=== PATIENT | male | born 1990 | race Caucasian/White ===

== ENCOUNTER 2018-10-20 08:51 | Inpatient (IN) | payer OTHER ==
[2018-10-20] VITALS (10 sets, daily range): BP systolic 110–130; BP diastolic 71–92; PULSE 68–98; RESP 13–21; Ht 180.3 cm; Wt 85.0 kg
[~2018-10-20] VITALS: Ht 180.3 cm; Wt 85.0 kg
[2018-10-20] MEDS ORDERED: SODIUM CHLORIDE 0.9% 1L BAG IV* STA (10:00)
[2018-10-20] MEDS ORDERED: IBUPROFEN 600 MG TAB PO ONE (11:00)
[2018-10-20] MEDS ORDERED: SOD CHLORIDE 0.9% 100 ML ONE (11:55)
[2018-10-20] MEDS ORDERED: IOHEXOL 300MG/ML 150 ML BTL ONE (11:55)
[2018-10-20] MEDS ORDERED: PIPER-TAZO 3.375 GM IV (PMX) 100 ML IVPB STA (12:51)
[2018-10-20] MEDS ORDERED: VANCOMYCIN 1 GM (PMX) 250 ML IVPB STA (12:51)
[2018-10-20] MEDS ORDERED: METH10SO PO (13:11)
--- NOTE | 2018-10-20 13:41 | ERD ---
ER Documentation Chief Complaint Chief Complaint ABSCESS ON LT SHOULDER X2 WEEKS HPI This is a 28-year-old male who presents for evaluation of an abscess to left shoulder. Patient is a former IV drug user, who is currently on methadone. He presented with a large area of swelling, which was concerning for an abscess. He denies fever. He denies any joint pain. ROS All systems reviewed and are negative except as per history of present illness. Medications Home Meds Reported Medications Methadone Hcl* (Methadone Hcl*) 10 Mg/5 Ml Solution, 60 MG PO DAILY, ML 10/20/18 Allergies Allergies: Coded Allergies: No Known Allergy (Unverified , 10/20/18) PMhx/Soc Medical and Surgical Hx: pt denies Medical Hx, pt denies Surgical Hx Hx Alcohol Use: No Hx Substance Use: Yes (I/V DRUG USE ) Hx Tobacco Use: No Smoking Status: Never smoker Physical Exam Vitals Vital Signs Date Temp Pulse Resp B/P (MAP) Pulse Ox O2 O2 Flow FiO2 Time Delivery Rate 10/20/18 77 16 101/76 99 Room Air 13:12 (84) 10/20/18 88 16 138/87 99 Room Air 11:01 (104) 10/20/18 98.4 103 16 123/90 100 09:01 (101) Physical Exam Const: No acute distress Head: Atraumatic Eyes: Normal Conjunctiva ENT: Normal External Ears, Nose and Mouth. Neck: Full range of motion. No meningismus. Resp: Clear to auscultation bilaterally Cardio: Regular rate and rhythm, no murmurs Abd: Soft, non tender, non distended. Normal bowel sounds Skin: No petechiae or rashes Back: No midline or flank tenderness Ext: There is a large area of swelling and induration noted over the left shoulder. There is small amount of purulence noted, distally pulses are intact, cap refill is less than 2 seconds Neur: Awake and alert Psych: Normal Mood and Affect Result Diagram: 10/20/18 1040 10/20/18 1040 Results 24 hrs Laboratory Tests Test 10/20/18 10:37 10/20/18 10:40 10/20/18 11:41 10/20/18 12:28 POC Venous Lactate 1.3 mmol/L White Blood Count 19.3 10^3/ul Red Blood Count 4.26 10^6/ul Hemoglobin 12.2 g/dl Hematocrit 37.4 % Mean Corpuscular 87.8 fl Volume Mean Corpuscular 28.6 pg Hemoglobin Mean Corpuscular 32.6 g/dl Hemoglobin Concent Red Cell 12.7 % Distribution Width Platelet Count 429 10^3/UL Mean Platelet 9.3 fl Volume Immature 0.700 % Granulocytes % Neutrophils % 79.0 % Lymphocytes % 9.4 % Monocytes % 9.8 % Eosinophils % 0.7 % Basophils % 0.4 % Nucleated Red Blood 0.0 /100WBC Cells % Immature 0.130 10^3/ul Granulocytes # Neutrophils # 15.3 10^3/ul Lymphocytes # 1.8 10^3/ul Monocytes # 1.9 10^3/ul Eosinophils # 0.1 10^3/ul Basophils # 0.1 10^3/ul Nucleated Red Blood 0.0 10^3/ul Cells # Prothrombin Time 14.3 Sec Prothrombin Time 1.1 Ratio INR International 1.10 Normalized Ratio Activated 31.9 Sec Partial Thromboplas t Time Sodium Level 136 mmol/L Potassium Level 3.5 mmol/L Chloride Level 100 mmol/L Carbon Dioxide 26 mmol/L Level Anion Gap 10 Blood Urea Nitrogen 15 mg/dl Creatinine 0.89 mg/dl Est Glomerular > 60 mL/min Filtrat Rate mL/min Glucose Level 74 mg/dl Calcium Level 8.9 mg/dl Total Bilirubin 0.3 mg/dl Direct Bilirubin 0.00 mg/dl Indirect Bilirubin 0.3 mg/dl Aspartate Amino 26 IU/L Transf (AST/SGOT) Alanine 22 IU/L Aminotransferase (A LT/SGPT) Alkaline 108 IU/L Phosphatase Troponin I < 0.012 ng/ml C-Reactive Protein 22.0 mg/dl Total Protein 6.9 g/dl Albumin 3.5 g/dl Globulin 3.40 g/dl Albumin/Globulin 1.02 Ratio Procalcitonin 0.14 ng/mL Urine Color MAYE Urine Clarity CLEAR Urine pH 5.0 Urine Specific 1.029 [place] Urine Ketones NEGATIVE mg/dL Urine Nitrite NEGATIVE mg/dL Urine Bilirubin 1+ mg/dL Urine Urobilinogen 2+ mg/dL Urine Leukocyte NEGATIVE Justyna/ul Esterase Urine Microscopic 0 /HPF RBC Urine Microscopic 4 /HPF WBC Urine Mucus FEW /HPF Urine Hemoglobin NEGATIVE mg/dL Urine Glucose NEGATIVE mg/dL Urine Total Protein 1+ mg/dl Lactic Acid Level 0.8 mmol/L Current Medications Medications Dose Sig/Era Start Time Status Last (Trade) Ordered Route PRN Stop Time Admin Dose Reason Admin Sodium 2,370 ml BOLUS OVER 2 10/20/18 DC 10/20/18 Chloride HOURS STAT 10:00 10/20/18 10:39 (NS) IV* 10:05 Ibuprofen 600 mg ONCE ONCE 10/20/18 DC 10/20/18 (Motrin) PO 11:00 10/20/18 10:56 11:01 Iohexol 150 ml STK-MED 10/20/18 DC (Omnipaque ONCE .ROUTE 11:55 10/20/18 300mg/ ml) 11:56 Sodium 100 ml @ ud STK-MED 10/20/18 DC Chloride ONCE .ROUTE 11:55 10/20/18 11:56 IV Flush 10 ml STK-MED 10/20/18 DC (NS 10 ml) ONCE .ROUTE 11:55 10/20/18 11:56 Vancomycin 250 ml @ ONCE STAT 10/20/18 HCl 125 mls/hr IVPB 12:51 10/20/18 14:50 Piperacillin 100 ml @ ONCE STAT 10/20/18 DC 10/20/18 Sod/ 200 mls/hr IVPB 12:51 10/20/18 12:56 Tazobactam 13:20 Sod Procedures/MDM This is a 28-year-old male who presents for evaluation of an abscess to the shoulder. Patient CT confirmed the depth of the abscess, given its size, the patient will be admitted for likely operative intervention, as well as IV antibiotics with vancomycin and Zosyn. Patient had no evidence of severe sepsis or septic shock. Accepting Care Team: Current data and ongoing care discussed. Primary: Paddy Consulting: Tiff Outstanding Data: none Departure Diagnosis: Primary Impression: Abscess Condition: Stable CHANTAL RAMSEY MD Oct 20, 2018 13:41
--- NOTE | 2018-10-20 13:56 | HP ---
Date/Time of Note Date/Time of Note DATE: 10/20/18 TIME: 13:51 Assessment/Plan VTE Prophylaxis SCD applied (from Nsg): Yes Pharmacological prophylaxis: NA/contraindicated Pharm contraindication: surgical contra Lines/Catheters IV Catheter Type (from Nrs): Saline Lock Assessment/Plan Hospital Course 1. Sepsis secondary to left arm abscess Patient has not used IV drugs for several months now and is on methadone, this has been verified by mother who is bedside Surgery take patient to the OR today for I&D Possible antibiotic with vancomycin and Zosyn ID consultation obtained, follow-up on cultures Follow-up on HIV and hepatitis panel 2. History of heroin abuse Patient has been clean for the past several months and is on methadone Continue home methadone 3. Normocytic anemia secondary to chronic disease Monitor Prophylaxis: SCDs Result Diagram: 10/20/18 1040 10/20/18 1040 Results 24hrs Laboratory Tests Test 10/20/18 10:37 10/20/18 10:40 10/20/18 11:41 10/20/18 12:28 POC Venous Lactate 1.3 White Blood Count 19.3 H Red Blood Count 4.26 L Hemoglobin 12.2 L Hematocrit 37.4 L Mean Corpuscular Volume 87.8 Mean Corpuscular 28.6 L Hemoglobin Mean Corpuscular 32.6 Hemoglobin Concent Red Cell Distribution 12.7 Width Platelet Count 429 H Mean Platelet Volume 9.3 Immature Granulocytes % 0.700 H Neutrophils % 79.0 H Lymphocytes % 9.4 L Monocytes % 9.8 Eosinophils % 0.7 Basophils % 0.4 Nucleated Red Blood 0.0 Cells % Immature Granulocytes # 0.130 H Neutrophils # 15.3 H Lymphocytes # 1.8 Monocytes # 1.9 H Eosinophils # 0.1 Basophils # 0.1 Nucleated Red Blood 0.0 Cells # Prothrombin Time 14.3 Prothrombin Time Ratio 1.1 INR International 1.10 Normalized Ratio Activated 31.9 Partial Thromboplast Time Sodium Level 136 Potassium Level 3.5 Chloride Level 100 Carbon Dioxide Level 26 Anion Gap 10 Blood Urea Nitrogen 15 Creatinine 0.89 Est Glomerular Filtrat > 60 Rate mL/min Glucose Level 74 Calcium Level 8.9 Total Bilirubin 0.3 Direct Bilirubin 0.00 Indirect Bilirubin 0.3 Aspartate Amino 26 Transf (AST/SGOT) Alanine 22 Aminotransferase (ALT/SG PT) Alkaline Phosphatase 108 Troponin I < 0.012 C-Reactive Protein 22.0 H Total Protein 6.9 Albumin 3.5 Globulin 3.40 H Albumin/Globulin Ratio 1.02 Procalcitonin 0.14 H Urine Color MAYE Urine Clarity CLEAR Urine pH 5.0 Urine Specific [place] 1.029 Urine Ketones NEGATIVE Urine Nitrite NEGATIVE Urine Bilirubin 1+ H Urine Urobilinogen 2+ H Urine Leukocyte Esterase NEGATIVE Urine Microscopic RBC 0 Urine Microscopic WBC 4 Urine Mucus FEW A Urine Hemoglobin NEGATIVE Urine Glucose NEGATIVE Urine Total Protein 1+ H Lactic Acid Level 0.8 HPI/ROS Admit Date/Time Admit Date/Time October 20, 2018 Hx of Present Illness Patient is a 28-year-old male with a history of IV drug use, patient has been clean for several months now and is on methadone which is been verified by his mother who is at bedside. Patient does have a history of abscess secondary to IV drug use but spontaneously developed an abscess over past several days on the left arm. In the ER CT of the arm showed a left deltoid abscess extending 13 cm in craniocaudal dimension. Patient to be taken to the OR with surgery today. Patient has no other complaints at this time. ROS Constitutional: no complaints, improved Eyes: no complaints ENT: no complaints Respiratory: no complaints Cardiovascular: no complaints Gastrointestinal: no complaints Genitourinary: no complaints Musculoskeletal: no complaints Skin: skin lesions Neurologic: no complaints Endocrine: no complaints Lymphatic: no complaints Psychological: no complaints, nl mood/affect Immunologic: no complaints PMH/Family/Social Past Medical History History of abscess secondary to IV drug use Medications Current Medications Vancomycin HCl 250 ml @ 125 mls/hr ONCE STAT IVPB Last administered on 10/20/18at 13:51; Admin Dose 125 MLS/HR; Start 10/20/18 at 12:51; Stop 10/20/18 at 14:50 Sodium Chloride 1,000 ml @ 100 mls/hr Q10H IV ; Start 10/20/18 at 13:44; Status UNV IV Flush (NS 3 ml) 3 ml PER PROTOCOL IV ; Start 10/20/18 at 14:00; Status UNV Ondansetron HCl (Zofran Inj) 4 mg Q6H PRN IV NAUSEA/VOMITING; Start 10/20/18 at 14:00; Status UNV Acetaminophen (Tylenol Tab) 650 mg Q6H PRN PO .PAIN 1-3 OR TEMP; Start 10/20/18 at 14:00; Status UNV Acetaminophen/ Hydrocodone Bitart ([place] (5/325)) 1 tab Q6H PRN PO .MOD PAIN 4- 6; Start 10/20/18 at 14:00; Status UNV Morphine Sulfate (morphine) 2 mg Q4H PRN IV .SEVERE PAIN 7-10; Start 10/20/18 at 14:00; Status UNV Docusate Sodium (Colace) 100 mg Q12H PRN PO .CONSTIPATION; Start 10/20/18 at 14:00; Status UNV Zolpidem Tartrate (Ambien) 5 mg QHS PRN PO .INSOMNIA; Start 10/20/18 at 14:00; Status UNV Vancomycin HCl (Vanco Iv Per Pharmacy) VANCOMYCIN PER PHARMACY PER PROTOCOL XX ; Start 10/20/18 at 14:00; Status UNV Piperacillin Sod/ Tazobactam Sod 100 ml @ 200 mls/hr Q6 IVPB ; Start 10/20/18 at 18:00; Status UNV Miscellaneous Information 60 mg DAILY PO ; Start 10/21/18 at 09:00; Status UNV Coded Allergies: No Known Allergy (Unverified , 10/20/18) Family History Significant Family History: no pertinent family hx Social History Alcohol Use: rarely Smoking Status: Never smoker Drug Use: heroin (History of heroin) Exam/Review of Systems Vital Signs Vitals Vital Signs Date Temp Pulse Resp B/P (MAP) Pulse Ox O2 O2 Flow FiO2 Time Delivery Rate 10/20/18 77 16 101/76 99 Room Air 13:12 (84) 10/20/18 98.4 09:01 Exam Constitutional: alert, oriented Respiratory: clear to auscultation Cardiovascular: regular rate and rhythm Gastrointestinal: soft; No distended Musculoskeletal: nl extremities to inspection Skin: other (Left arm abscess) JOSEPH ALCANTARA Oct 20, 2018 13:56
[2018-10-20] MEDS ORDERED: DOCUSATE SODIUM 100 MG CAP PO PRN (14:00)
[2018-10-20] MEDS ORDERED: ZOLPIDEM 5 MG TAB PO PRN (14:00)
[2018-10-20] MEDS ORDERED: VANCOMYCIN IV PER PHARMACY XX SCH (14:00)
[2018-10-20] MEDS ORDERED: NACL 0.9% 3 ML SYG IV SCH (14:00)
[2018-10-20] MEDS ORDERED: HYDROCODONE/APAP (5/325) TAB PO PRN (14:00)
[2018-10-20] MEDS ORDERED: morphine 2 MG INJ IV PRN (14:00)
[2018-10-20] MEDS ORDERED: ACETAMINOPHEN 325 MG TAB PO PRN ×2 (14:00→17:30)
[2018-10-20] MEDS ORDERED: ONDANSETRON 4 MG INJ IV PRN ×3 (14:00→17:30)
--- NOTE | 2018-10-20 15:01 | PREAC ---
Date/Time of Note Date/Time of Note DATE: 10/20/18 TIME: 14:58 Anesthesia Eval and Record Evaluation Time Pre-Procedure Interview DATE: 10/20/18 TIME: 14:58 Age 28 Sex male NPO: 8 hrs Preoperative diagnosis lt. deltoid abscess, h/o ivdu Planned procedure i&d of lt. shoulder abscess Past Medical History Past Medical History: Includes Infection(s): Other (hiv/hep b/c being ruled out) Recreational drugs: Heroin, Other (ex. heroin, methadone maintenance) Surgery & Anesthesia Issues No known issue Meds Anticoagulation: No Beta Yulisa within 24 hr: No Reason Beta Yulisa not given: Pt. not on B-Yulisa Reported Medications Methadone Hcl* (Methadone Hcl*) 10 Mg/5 Ml Solution, 60 MG PO DAILY, ML 10/20/18 Current Medications Sodium Chloride 1,000 ml @ 100 mls/hr Q10H IV ; Start 10/20/18 at 13:44 IV Flush (NS 3 ml) 3 ml PER PROTOCOL IV ; Start 10/20/18 at 14:00 Ondansetron HCl (Zofran Inj) 4 mg Q6H PRN IV NAUSEA/VOMITING; Start 10/20/18 at 14:00 Acetaminophen (Tylenol Tab) 650 mg Q6H PRN PO .PAIN 1-3 OR TEMP; Start 10/20/18 at 14:00 Acetaminophen/ Hydrocodone Bitart ([place] (5/325)) 1 tab Q6H PRN PO .MOD PAIN 4- 6; Start 10/20/18 at 14:00 Morphine Sulfate (morphine) 2 mg Q4H PRN IV .SEVERE PAIN 7-10; Start 10/20/18 at 14:00 Docusate Sodium (Colace) 100 mg Q12H PRN PO .CONSTIPATION; Start 10/20/18 at 14:00 Zolpidem Tartrate (Ambien) 5 mg QHS PRN PO .INSOMNIA; Start 10/20/18 at 14:00 Vancomycin HCl (Vanco Iv Per Pharmacy) VANCOMYCIN PER PHARMACY PER PROTOCOL XX ; Start 10/20/18 at 14:00 Piperacillin Sod/ Tazobactam Sod 100 ml @ 200 mls/hr Q6 IVPB ; Start 10/20/18 at 18:00 Miscellaneous Information 60 mg DAILY PO ; Start 10/21/18 at 09:00; Status UNV Vancomycin/Sodium Chloride 250 ml @ 125 mls/hr Q8H IVPB ; Start 10/20/18 at 17:30 Meds reviewed: Yes Allergies Coded Allergies: No Known Allergy (Unverified , 10/20/18) Allergies Reviewed: Yes Labs/Studies Labs Reviewed: Reviewed by anesthesiologist Result Diagram: 10/20/18 1040 10/20/18 1040 Laboratory Tests 10/20/18 10:40 test: N/A Studies: ECG (nsr), CXR (no i/e) Pre-procedure Exam Last vitals Vital Signs Date Temp Pulse Resp B/P (MAP) Pulse Ox O2 O2 Flow FiO2 Time Delivery Rate 10/20/18 98.6 78 16 121/83 98 Room Air 14:31 (96) Airway: Adequate mouth opening, Adequate thyromental dist Mallampati: Mallampati II Teeth: Normal Lung: Normal Heart: Normal ASA Physical Status ASA physical status: 2 Emergency: E Planned Anesthetic General/MAC: LMA Nerve block: Brachial plexus (possible) Planned Pain Management Single shot nerve block (if severe postop pain), Local by surgeon Pre-operative Attestations Prior to commencing anesthesia and surgery, the patient was re-evaluated, there was verification of: *The patient's identity *The results of appropriate recent lab work and preoperative vital signs *The above evaluation not changing prior to induction *Anesthetic plan, risk benefits, alternative and complications discussed with patient/family; questions answered; patient/family understands, accepts and wishes to proceed. Cryptographic Vulnerability Analyst used VERONICA DURAN MD Oct 20, 2018 15:01
[2018-10-20] MEDS ORDERED: FENTAnyl 50 MCG/ML VIAL ONE (15:37)
[2018-10-20] MEDS ORDERED: MIDAZOLAM 1 MG/ML 2 ML INJ ONE (15:37)
[2018-10-20] MEDS ORDERED: ROPIVACAINE 0.5 % 30 ML VIAL ONE (15:38)
--- NOTE | 2018-10-20 15:38 | CONS ---
Assessment/Plan Assessment/Plan Hospital Course (Demo Recall) CT scan was performed that showed large abscess in the left shoulder area not involving bone and joint structures. White blood count 19,000. Problems: (1) Shoulder abscess Status: Acute (2) Heroin abuse Status: Resolved Assessment/Plan (Daily) The patient with a history of IV drug abuse developed left shoulder large abscess with the elevated white count. Patient is going to have urgent I&D of the abscess, we discussed risk and benefits we discussed possible complications, including bleeding infection, need for frequent wound care, patient is aware of possible loss of some sensory function of his left arm. Patient understands risk and benefits wished to proceed. Consultation Date/Type/Reason Admit Date/Time October 20, 2018 Date of Consultation: Oct 20, 2018 Type of Consult Surgical Requesting Provider: JOSEPH ALCANTARA Date/Time of Note DATE: 10/20/18 TIME: 15:31 Hx of Present Illness 48 years old male with a history of IV drug abuse, reportedly sober for the last 5 months according to himself and his mother, presented to emergency room with redness induration pain and swelling of his left shoulder 7 days duration. This swelling got significantly or worse over the last few days but it has been drained spontaneously and brought some relief in pain. Constitutional: no complaints, improved Eyes: no complaints ENT: no complaints Respiratory: no complaints Cardiovascular: no complaints Gastrointestinal: no complaints Genitourinary: no complaints Musculoskeletal: swelling, other (Left shoulder pain) Skin: no complaints Neurologic: no complaints Endocrine: no complaints Lymphatic: no complaints Psychological: no complaints, nl mood/affect Immunologic: no complaints Past Medical History Medical History: other (History of the IV drug abuse) Home Meds Reported Medications Methadone Hcl* (Methadone Hcl*) 10 Mg/5 Ml Solution, 60 MG PO DAILY, ML 10/20/18 Medications Current Medications Sodium Chloride 1,000 ml @ 100 mls/hr Q10H IV ; Start 10/20/18 at 13:44 IV Flush (NS 3 ml) 3 ml PER PROTOCOL IV ; Start 10/20/18 at 14:00 Ondansetron HCl (Zofran Inj) 4 mg Q6H PRN IV NAUSEA/VOMITING; Start 10/20/18 at 14:00 Acetaminophen (Tylenol Tab) 650 mg Q6H PRN PO .PAIN 1-3 OR TEMP; Start 10/20/18 at 14:00 Acetaminophen/ Hydrocodone Bitart ([place] (5/325)) 1 tab Q6H PRN PO .MOD PAIN 4- 6; Start 10/20/18 at 14:00 Morphine Sulfate (morphine) 2 mg Q4H PRN IV .SEVERE PAIN 7-10; Start 10/20/18 at 14:00 Docusate Sodium (Colace) 100 mg Q12H PRN PO .CONSTIPATION; Start 10/20/18 at 14:00 Zolpidem Tartrate (Ambien) 5 mg QHS PRN PO .INSOMNIA; Start 10/20/18 at 14:00 Vancomycin HCl (Vanco Iv Per Pharmacy) VANCOMYCIN PER PHARMACY PER PROTOCOL XX ; Start 10/20/18 at 14:00 Piperacillin Sod/ Tazobactam Sod 100 ml @ 200 mls/hr Q6 IVPB ; Start 10/20/18 at 18:00 Miscellaneous Information 60 mg DAILY PO ; Start 10/21/18 at 09:00; Status UNV Vancomycin/Sodium Chloride 250 ml @ 125 mls/hr Q8H IVPB ; Start 10/20/18 at 17:30 Allergies: Coded Allergies: No Known Allergy (Unverified , 10/20/18) Past Surgical History Past Surgical Hx: other (Knee surgery) Family History Significant Family History: no pertinent family hx Social History Alcohol Use: rarely Smoking Status: Never smoker Drug Use: heroin (History of heroin) Exam/Review of Systems Exam Vitals Vital Signs Date Temp Pulse Resp B/P (MAP) Pulse Ox O2 O2 Flow FiO2 Time Delivery Rate 10/20/18 98.6 78 16 121/83 98 Room Air 14:31 (96) Constitutional: alert, oriented, well developed Psych: no complaints, nl mood/affect Head: normocephalic, atraumatic Eyes: nl conjunctiva, EOMI, nl lids, nl sclera, PERRL ENMT: nl external ears & nose, nl lips & teeth, nl nasal mucosa & septum Neck: supple, non-tender Respiratory: clear to auscultation, normal air movement Cardiovascular: regular rate and rhythm, nl pulses Gastrointestinal: soft, nl liver, spleen, non-tender Musculoskeletal: other (Significant swelling and induration of the left shoulder with the few spots of the necrotic skin's with spontaneously draining past from few small openings. Very tender on palpation as well as fluctuation. The left upper extremity does not have full range of motion because of the pain. No sensory deficit.) Extremities: normal pulses Neurological: MEAT INSPECTOR II-XII intact, nl mental status, nl speech, nl strength Skin: nl turgor; No rash or lesions Lymph: nl lymph nodes Results Result Diagram: 10/20/18 1040 10/20/18 1040 Results 24hrs Laboratory Tests Test 10/20/18 10:37 10/20/18 10:40 10/20/18 11:41 10/20/18 12:28 POC Venous Lactate 1.3 White Blood Count 19.3 H Red Blood Count 4.26 L Hemoglobin 12.2 L Hematocrit 37.4 L Mean Corpuscular Volume 87.8 Mean Corpuscular 28.6 L Hemoglobin Mean Corpuscular 32.6 Hemoglobin Concent Red Cell Distribution 12.7 Width Platelet Count 429 H Mean Platelet Volume 9.3 Immature Granulocytes % 0.700 H Neutrophils % 79.0 H Lymphocytes % 9.4 L Monocytes % 9.8 Eosinophils % 0.7 Basophils % 0.4 Nucleated Red Blood 0.0 Cells % Immature Granulocytes # 0.130 H Neutrophils # 15.3 H Lymphocytes # 1.8 Monocytes # 1.9 H Eosinophils # 0.1 Basophils # 0.1 Nucleated Red Blood 0.0 Cells # Prothrombin Time 14.3 Prothrombin Time Ratio 1.1 INR International 1.10 Normalized Ratio Activated 31.9 Partial Thromboplast Time Sodium Level 136 Potassium Level 3.5 Chloride Level 100 Carbon Dioxide Level 26 Anion Gap 10 Blood Urea Nitrogen 15 Creatinine 0.89 Est Glomerular Filtrat > 60 Rate mL/min Glucose Level 74 Calcium Level 8.9 Total Bilirubin 0.3 Direct Bilirubin 0.00 Indirect Bilirubin 0.3 Aspartate Amino 26 Transf (AST/SGOT) Alanine 22 Aminotransferase (ALT/SG PT) Alkaline Phosphatase 108 Troponin I < 0.012 C-Reactive Protein 22.0 H Total Protein 6.9 Albumin 3.5 Globulin 3.40 H Albumin/Globulin Ratio 1.02 Procalcitonin 0.14 H Urine Color MAYE Urine Clarity CLEAR Urine pH 5.0 Urine Specific [place] 1.029 Urine Ketones NEGATIVE Urine Nitrite NEGATIVE Urine Bilirubin 1+ H Urine Urobilinogen 2+ H Urine Leukocyte Esterase NEGATIVE Urine Microscopic RBC 0 Urine Microscopic WBC 4 Urine Mucus FEW A Urine Hemoglobin NEGATIVE Urine Glucose NEGATIVE Urine Total Protein 1+ H Lactic Acid Level 0.8 Test 10/20/18 13:54 Lactic Acid Level 0.7 Medications Medication Current Medications Sodium Chloride 1,000 ml @ 100 mls/hr Q10H IV ; Start 10/20/18 at 13:44 IV Flush (NS 3 ml) 3 ml PER PROTOCOL IV ; Start 10/20/18 at 14:00 Ondansetron HCl (Zofran Inj) 4 mg Q6H PRN IV NAUSEA/VOMITING; Start 10/20/18 at 14:00 Acetaminophen (Tylenol Tab) 650 mg Q6H PRN PO .PAIN 1-3 OR TEMP; Start 10/20/18 at 14:00 Acetaminophen/ Hydrocodone Bitart ([place] (5/325)) 1 tab Q6H PRN PO .MOD PAIN 4- 6; Start 10/20/18 at 14:00 Morphine Sulfate (morphine) 2 mg Q4H PRN IV .SEVERE PAIN 7-10; Start 10/20/18 at 14:00 Docusate Sodium (Colace) 100 mg Q12H PRN PO .CONSTIPATION; Start 10/20/18 at 14:00 Zolpidem Tartrate (Ambien) 5 mg QHS PRN PO .INSOMNIA; Start 10/20/18 at 14:00 Vancomycin HCl (Vanco Iv Per Pharmacy) VANCOMYCIN PER PHARMACY PER PROTOCOL XX ; Start 10/20/18 at 14:00 Piperacillin Sod/ Tazobactam Sod 100 ml @ 200 mls/hr Q6 IVPB ; Start 10/20/18 at 18:00 Miscellaneous Information 60 mg DAILY PO ; Start 10/21/18 at 09:00; Status UNV Vancomycin/Sodium Chloride 250 ml @ 125 mls/hr Q8H IVPB ; Start 10/20/18 at 17:30 GARY WOLFE MD Oct 20, 2018 15:38
[2018-10-20] MEDS ORDERED: METOCLOPRAMIDE 10 MG INJ ONE (15:41)
[2018-10-20] MEDS ORDERED: ONDANSETRON 4 MG INJ ONE (15:41)
[2018-10-20] MEDS ORDERED: PROPOFOL 20 ML ONE ×2 (15:56→16:08)
[2018-10-20] MEDS ORDERED: LACTATED RINGER'S 1,000 ML IV SCH (16:15)
[2018-10-20] MEDS ORDERED: KETOROLAC 15 MG INJ IV PRN ×2 (16:30→17:00)
[2018-10-20] MEDS ORDERED: HYDROmorphONE 1 MG/5 ML IV SYRINGE IV PRN ×3 (16:30)
[2018-10-20] MEDS ORDERED: METOCLOPRAMIDE 10 MG INJ IV PRN (16:30)
[2018-10-20] MEDS ORDERED: LORAZEPAM 2 MG INJ IV PRN (16:30)
[2018-10-20] MEDS ORDERED: KETOROLAC 30 MG INJ IV PRN ×2 (16:30→17:30)
[2018-10-20] MEDS ORDERED: DIPHENHYDRAMINE 50 MG INJ IV PRN (16:30)
[2018-10-20] MEDS ORDERED: MEPERIDINE 25 MG INJ IV PRN (16:30)
[2018-10-20] MEDS ORDERED: MIDAZOLAM 1 MG/ML 2 ML INJ IV PRN (16:30)
[2018-10-20] MEDS ORDERED: KETOROLAC 60 MG INJ IM PRN (16:30)
--- NOTE | 2018-10-20 17:01 | CONS ---
DATE OF ADMISSION: 10/20/2018 DATE OF CONSULTATION: 10/20/2018 TYPE OF CONSULTATION: Infectious Disease. REASON FOR CONSULTATION: Antibiotic management. HISTORY OF PRESENT ILLNESS: Dung Sánchez is a 28-year-old male who presents with evaluation of an abscess on his left shoulder. The patient is a former IV drug abuser, currently on methadone, who p resents with a large area of swelling, which was concerning for an abscess. PAST MEDICAL HISTORY: Significant for IV drug abuse. FAMILY HISTORY: Noncontributory. SOCIAL HISTORY: Does not smoke or drink. He does abuse drugs. ALLERGIES: NONE TO PENICILLIN, SULFA OR FOODS. MEDICATIONS: Per chart. REVIEW OF SYSTEMS: Noncontributory. PHYSICAL EXAMINATION: GENERAL: The patient is in no acute distress. VITAL SIGNS: Stable. He is afebrile. SKIN: Without generalized rash. HEENT: Within normal limits. NECK: Supple. LYMPH NODES: None palpable. CHEST: Decreased breath sounds at the bases. HEART: Without murmur or gallop. ABDOMEN: Soft, nontender, without organosplenomegaly or masses. EXTREMITIES: Large area of swelling and induration over the left shoulder. Small amount of purulenc e noted. RECTAL AND GENITAL: Deferred. NEUROLOGICAL: No focal neurological abnormality. ANCILLARY LABORATORY DATA: White count of 19.3, H and H of 12.2 and 37.4, platelet count 429,000. B UN and creatinine 15/0.89. Blood sugar was 74 with 79% neutrophils. IMPRESSION AND PLAN: Patient was started on vancomycin and Zosyn. A CT scan confirmed the depth of the abscess and it will require operative intervention as well as IV antibiotics. He is being worked up for HIV and hepatitis panel. History of heroin abuse. As noted, white count of 19.3 with 79% ne utrophils. I will dictate my findings to the hospitalist. Dictated By: KELTON LOUIS MD, JD/HAI Conf#: [id number] DID#: [id number]
[2018-10-20] MEDS ORDERED: D5W-0.45 NACL + KCL 20 MEQ 1,000 ML IV SCH (17:05)
--- NOTE | 2018-10-20 17:12 | OPR ---
Date/Time of Note Date/Time of Note DATE: 10/20/18 TIME: 17:11 Operative Report Procedure Date: Oct 20, 2018 Preoperative Diagnosis Left shoulder abscess Postoperative Diagnosis Left shoulder abscess Operation/Procedure Performed Incision and drainage of the left shoulder abscess Negative pressure dressing applied. Wound pulse irrigation. Surgeon see signature line Ad Setter None Anesthesia Type: MAC Anesthesiologist: VERONICA DURAN MD Estimated Blood Loss: minimal Transfusion none Specimen Wound culture Grafts/Implants none Tubes/Drains Negative pressure dressing Complications none Pt Condition Post Procedure: stable Disposition: PACU Indications 28-year-old male with a history of IV drug abuse developed left shoulder abscess Procedure Description Patient was placed in the right decubitus position. Cervical block was achieved by anesthesiologist. IV sedation was achieved as well. The left shoulder was widely prepped and draped. After that the incision will the vertical scar was performed over the palpated abscess. Approximately 100 cc of past was evacuated. After that the wound was debrided. Pulse irrigation was used to additional debride and irrigate the wound. Hemostasis was confirmed. The negative pressure dressing was applied by placing the sponge inside the wound and ceiling was applied on top of that. Patient tolerated procedure well was transferred to recovery room. Instrument and sponge counts were correct x2. GARY WOLFE MD Oct 20, 2018 17:11
[2018-10-20] MEDS ORDERED: IBUPROFEN 600 MG TAB PO PRN (17:30)
[2018-10-20] MEDS ORDERED: VANCOMYCIN 750 MG (PMX) 250 ML IVPB SCH (17:30)
[2018-10-20] MEDS: HYDROmorphONE 2 MG TAB PO PRN ×2 (19:11→23:23)
[2018-10-20] MEDS: PIPER-TAZO 3.375 GM IV (PMX) 100 ML IVPB SCH ×2 (19:50→23:27)
[2018-10-20] MEDS: SOD CHLORIDE 0.9% 1,000 ML IV SCH ×2 (19:50→23:44)
--- NOTE | 2018-10-20 21:18 | PAC ---
Date/Time of Note Date/Time of Note DATE: 10/20/18 TIME: 21:18 Post-Anesthesia Notes Post-Anesthesia Note Last documented vital signs Vital Signs Date Temp Pulse Resp B/P (MAP) Pulse Ox O2 O2 Flow FiO2 Time Delivery Rate 10/20/18 98.5 93 16 114/71 96 19:35 (85) 10/20/18 Room Air 14:31 Activity: WNL Respiratory function: WNL Cardiovascular function: WNL Mental status: Baseline Pain reasonably controlled: Yes Hydration appropriate: Yes Nausea/Vomiting absent: Yes VERONICA DURAN MD Oct 20, 2018 21:18
[2018-10-21] MEDS: HYDROCODONE/APAP (5/325) TAB PO PRN ×2 (00:48→06:44)
[2018-10-21 02:09] VITALS: BP 111/63; PULSE 81; RESP 16
[2018-10-21] MEDS: HYDROmorphONE 2 MG TAB PO PRN ×4 (04:24→20:51)
[2018-10-21] MEDS: VANCOMYCIN 750 MG (PMX) 250 ML IVPB SCH ×3 (04:24→20:52)
[2018-10-21] MEDS: PIPER-TAZO 3.375 GM IV (PMX) 100 ML IVPB SCH ×3 (06:37→18:00)
[2018-10-21 07:40] VITALS: BP 130/19; PULSE 64; RESP 16
[2018-10-21] MEDS ORDERED: METHADONE HCL PO SCH (09:00)
--- NOTE | 2018-10-21 09:40 | PN ---
Date/Time of Note Date/Time of Note DATE: 10/21/18 TIME: 09:39 Assessment/Plan VTE Prophylaxis SCD applied (from Nsg): Yes Pharmacological prophylaxis: NA/contraindicated Pharm contraindication: low risk/ambulating Lines/Catheters IV Catheter Type (from Nrsg): Peripheral IV Assessment/Plan Hospital Course SUBJECTIVE: Incisional pain well controlled. OBJECTIVE: Physical Exam General: Adequately build 28 year-old male lying in bed in no apparent distress. HEENT: Normocephalic, atraumatic. Eyes: Anicteric sclerae, conjunctivae clear. ENT: Nasal septum midline, oral mucosa moist. Neck supple, no JVD noticed. Respiratory: Bilaterally diminished breath sounds. No use of accessory muscles of respiration. No adventitious breath sounds. Cardiovascular: S1, S2 heard. Regular rate and rhythm. Abdomen: Soft, nontender, and nondistended. Bowel sounds positive in all 4 quadrants. Genitourinary: Deferred. Extremities: No cyanosis, no clubbing, no edema. Peripheral pulses palpable. Left deltoid area surgical incision with wound VAC over it. Neurologic: Cranial nerves II through XII grossly intact. The patient is awake, alert, and oriented. Skin: Normal skin turgor. No skin rashes. Labs & Vitals per chart ASSESSMENT & PLAN 28-year-old male with a prior history of IV drug abuse who has been obtained for several months and is on methadone who came to the emergency room with a spontaneously developed left shoulder abscess with evidence of sepsis with leuko cytosis, and tachycardia secondary to underlying left arm abscess who was admitted to inpatient setting. 1. Sepsis with leukocytosis and febrile illness secondary to left, abscess, present on admission. Continue antimicrobials as per ID. 2. Left shoulder abscess. Status post incision and drainage on 10/20/2018. Continue negative pressure Continue wound care as per general surgery. 3. Normocytic anemia. Most probably anemia chronic disease. Monitor H&H closely. 4. History of heroin abuse. Patient has been clean for the past several months and is on methadone. Continue methadone. 5. Fluids, electrolytes, and nutrition. Regular diet. 6. DVT prophylaxis. Bilateral SCDs. 7. Plan. Continue antimicrobials as per ID. Await clinical improvement and clearance from consultants before discharging the patient home. Patient was seen in collaboration with Dr. Larios. Result Diagram: 6/10/19 0603 6/10/19 0603 Results 24hrs Laboratory Tests Test 10/20/18 10:37 10/20/18 10:40 10/20/18 11:41 10/20/18 12:28 POC Venous Lactate 1.3 White Blood Count 19.3 H Red Blood Count 4.26 L Hemoglobin 12.2 L Hematocrit 37.4 L Mean Corpuscular Volume 87.8 Mean Corpuscular 28.6 L Hemoglobin Mean Corpuscular 32.6 Hemoglobin Concent Red Cell Distribution 12.7 Width Platelet Count 429 H Mean Platelet Volume 9.3 Immature Granulocytes % 0.700 H Neutrophils % 79.0 H Lymphocytes % 9.4 L Monocytes % 9.8 Eosinophils % 0.7 Basophils % 0.4 Nucleated Red Blood 0.0 Cells % Immature Granulocytes # 0.130 H Neutrophils # 15.3 H Lymphocytes # 1.8 Monocytes # 1.9 H Eosinophils # 0.1 Basophils # 0.1 Nucleated Red Blood 0.0 Cells # Prothrombin Time 14.3 Prothrombin Time Ratio 1.1 INR International 1.10 Normalized Ratio Activated 31.9 Partial Thromboplast Time Sodium Level 136 Potassium Level 3.5 Chloride Level 100 Carbon Dioxide Level 26 Anion Gap 10 Blood Urea Nitrogen 15 Creatinine 0.89 Est Glomerular Filtrat > 60 Rate mL/min Glucose Level 74 Calcium Level 8.9 Total Bilirubin 0.3 Direct Bilirubin 0.00 Indirect Bilirubin 0.3 Aspartate Amino 26 Transf (AST/SGOT) Alanine 22 Aminotransferase (ALT/S GPT) Alkaline Phosphatase 108 Troponin I < 0.012 C-Reactive Protein 22.0 H Total Protein 6.9 Albumin 3.5 Globulin 3.40 H Albumin/Globulin Ratio 1.02 Procalcitonin 0.14 H Urine Color MAYE Urine Clarity CLEAR Urine pH 5.0 Urine Specific [place] 1.029 Urine Ketones NEGATIVE Urine Nitrite NEGATIVE Urine Bilirubin 1+ H Urine Urobilinogen 2+ H Urine Leukocyte NEGATIVE Esterase Urine Microscopic RBC 0 Urine Microscopic WBC 4 Urine Mucus FEW A Urine Hemoglobin NEGATIVE Urine Glucose NEGATIVE Urine Total Protein 1+ H Lactic Acid Level 0.8 Test 10/20/18 13:54 10/21/18 06:03 Lactic Acid Level 0.7 White Blood Count 13.4 #H Red Blood Count 3.92 L Hemoglobin 11.1 L Hematocrit 33.5 L Mean Corpuscular Volume 85.5 Mean Corpuscular 28.3 L Hemoglobin Mean Corpuscular 33.1 Hemoglobin Concent Red Cell Distribution 12.6 Width Platelet Count 370 Mean Platelet Volume 9.4 Immature Granulocytes % 1.700 H Neutrophils % 69.4 Lymphocytes % 18.2 Monocytes % 9.0 Eosinophils % 1.3 Basophils % 0.4 Nucleated Red Blood 0.0 Cells % Immature Granulocytes # 0.230 H Neutrophils # 9.3 H Lymphocytes # 2.4 Monocytes # 1.2 H Eosinophils # 0.2 Basophils # 0.1 Nucleated Red Blood 0.0 Cells # Sodium Level 138 Potassium Level 3.5 Chloride Level 107 Carbon Dioxide Level 25 Anion Gap 6 Blood Urea Nitrogen 10 Creatinine 0.89 Est Glomerular Filtrat > 60 Rate mL/min Glucose Level 85 Hemoglobin A1c 5.3 Calcium Level 8.4 Phosphorus Level 4.1 Magnesium Level 1.8 Hepatitis B Surface NEGATIVE Antigen Hepatitis B Core NEGATIVE Total Antibody Hepatitis C Antibody NEGATIVE HIV (1&2) Antibody NEGATIVE Exam/Review of Systems Exam Vitals Vital Signs Date Temp Pulse Resp B/P (MAP) Pulse Ox O2 O2 Flow FiO2 Time Delivery Rate 10/21/18 98.3 64 16 130/19 94 07:40 (56) 10/20/18 Room Air 14:31 Intake and Output 10/20/18 10/20/18 10/21/18 1515:00 23:00 07:00 IntakeIntake Total 850 ml 850 ml OutputOutput Total 50 ml 400 ml BalanceBalance 800 ml 450 ml Results Results 24hrs Laboratory Tests Test 10/20/18 10:37 10/20/18 10:40 10/20/18 11:41 10/20/18 12:28 POC Venous Lactate 1.3 White Blood Count 19.3 H Red Blood Count 4.26 L Hemoglobin 12.2 L Hematocrit 37.4 L Mean Corpuscular Volume 87.8 Mean Corpuscular 28.6 L Hemoglobin Mean Corpuscular 32.6 Hemoglobin Concent Red Cell Distribution 12.7 Width Platelet Count 429 H Mean Platelet Volume 9.3 Immature Granulocytes % 0.700 H Neutrophils % 79.0 H Lymphocytes % 9.4 L Monocytes % 9.8 Eosinophils % 0.7 Basophils % 0.4 Nucleated Red Blood 0.0 Cells % Immature Granulocytes # 0.130 H Neutrophils # 15.3 H Lymphocytes # 1.8 Monocytes # 1.9 H Eosinophils # 0.1 Basophils # 0.1 Nucleated Red Blood 0.0 Cells # Prothrombin Time 14.3 Prothrombin Time Ratio 1.1 INR International 1.10 Normalized Ratio Activated 31.9 Partial Thromboplast Time Sodium Level 136 Potassium Level 3.5 Chloride Level 100 Carbon Dioxide Level 26 Anion Gap 10 Blood Urea Nitrogen 15 Creatinine 0.89 Est Glomerular Filtrat > 60 Rate mL/min Glucose Level 74 Calcium Level 8.9 Total Bilirubin 0.3 Direct Bilirubin 0.00 Indirect Bilirubin 0.3 Aspartate Amino 26 Transf (AST/SGOT) Alanine 22 Aminotransferase (ALT/S GPT) Alkaline Phosphatase 108 Troponin I < 0.012 C-Reactive Protein 22.0 H Total Protein 6.9 Albumin 3.5 Globulin 3.40 H Albumin/Globulin Ratio 1.02 Procalcitonin 0.14 H Urine Color MAYE Urine Clarity CLEAR Urine pH 5.0 Urine Specific [place] 1.029 Urine Ketones NEGATIVE Urine Nitrite NEGATIVE Urine Bilirubin 1+ H Urine Urobilinogen 2+ H Urine Leukocyte NEGATIVE Esterase Urine Microscopic RBC 0 Urine Microscopic WBC 4 Urine Mucus FEW A Urine Hemoglobin NEGATIVE Urine Glucose NEGATIVE Urine Total Protein 1+ H Lactic Acid Level 0.8 Test 10/20/18 13:54 10/21/18 06:03 Lactic Acid Level 0.7 White Blood Count 13.4 #H Red Blood Count 3.92 L Hemoglobin 11.1 L Hematocrit 33.5 L Mean Corpuscular Volume 85.5 Mean Corpuscular 28.3 L Hemoglobin Mean Corpuscular 33.1 Hemoglobin Concent Red Cell Distribution 12.6 Width Platelet Count 370 Mean Platelet Volume 9.4 Immature Granulocytes % 1.700 H Neutrophils % 69.4 Lymphocytes % 18.2 Monocytes % 9.0 Eosinophils % 1.3 Basophils % 0.4 Nucleated Red Blood 0.0 Cells % Immature Granulocytes # 0.230 H Neutrophils # 9.3 H Lymphocytes # 2.4 Monocytes # 1.2 H Eosinophils # 0.2 Basophils # 0.1 Nucleated Red Blood 0.0 Cells # Sodium Level 138 Potassium Level 3.5 Chloride Level 107 Carbon Dioxide Level 25 Anion Gap 6 Blood Urea Nitrogen 10 Creatinine 0.89 Est Glomerular Filtrat > 60 Rate mL/min Glucose Level 85 Hemoglobin A1c 5.3 Calcium Level 8.4 Phosphorus Level 4.1 Magnesium Level 1.8 Hepatitis B Surface NEGATIVE Antigen Hepatitis B Core NEGATIVE Total Antibody Hepatitis C Antibody NEGATIVE HIV (1&2) Antibody NEGATIVE Medications Medication Current Medications Sodium Chloride 1,000 ml @ 100 mls/hr Q10H IV Last administered on 10/20/18at 19:50; Admin Dose 100 MLS/HR; Start 10/20/18 at 13:44; Stop 10/21/18 at 09:43 IV Flush (NS 3 ml) 3 ml PER PROTOCOL IV ; Start 10/20/18 at 14:00 Ondansetron HCl (Zofran Inj) 4 mg Q6H PRN IV NAUSEA/VOMITING; Start 10/20/18 at 14:00 Acetaminophen (Tylenol Tab) 650 mg Q6H PRN PO .PAIN 1-3 OR TEMP; Start 10/20/18 at 14:00 Acetaminophen/ Hydrocodone Bitart ([place] (5/325)) 1 tab Q6H PRN PO .MOD PAIN 4- 6; Start 10/20/18 at 14:00 Morphine Sulfate (morphine) 2 mg Q4H PRN IV .SEVERE PAIN 7-10; Start 10/20/18 at 14:00 Docusate Sodium (Colace) 100 mg Q12H PRN PO .CONSTIPATION; Start 10/20/18 at 14:00 Zolpidem Tartrate (Ambien) 5 mg QHS PRN PO .INSOMNIA; Start 10/20/18 at 14:00 Vancomycin HCl (Vanco Iv Per Pharmacy) VANCOMYCIN PER PHARMACY PER PROTOCOL XX ; Start 10/20/18 at 14:00 Piperacillin Sod/ Tazobactam Sod 100 ml @ 200 mls/hr Q6 IVPB Last administered on 10/21/18at 06:37; Admin Dose 200 MLS/HR; Start 10/20/18 at 18:00 Miscellaneous Information 60 mg DAILY PO ; Start 10/21/18 at 09:00; Status UNV Ketorolac Tromethamine (Toradol) 15 mg PACU ORDER PRN IV FOR PAIN AFTER IV NARCOTIC MED; Start 10/20/18 at 17:00; Stop 10/23/18 at 21:00 Acetaminophen (Tylenol Tab) 650 mg Q6H PRN PO MILD PAIN(1-3)OR ELEVATED TEMP; Start 10/20/18 at 17:30 Ibuprofen (Motrin) 600 mg Q6H PRN PO PAIN LEVEL 6-10; Start 10/20/18 at 17:30 Ketorolac Tromethamine (Toradol) 30 mg Q6H PRN IV PAIN; Start 10/20/18 at 17:30; Stop 10/23/18 at 17:29 Acetaminophen/ Hydrocodone Bitart ([place] (5/325)) 1 tab Q6H PRN PO PAIN LEVEL 6-10 Last administered on 10/21/18at 06:44; Admin Dose 1 TAB; Start 10/20/18 at 17:30 Ondansetron HCl (Zofran Inj) 4 mg Q6H PRN IV NAUSEA AND/OR VOMITING; Start 10/20/18 at 17:30 Diphenhydramine HCl (Benadryl) 25 mg Q6H PRN IV ITCHING; Start 10/20/18 at 17:30 Miscellaneous Information (*Rx Drug Level Order Reminder*) VANCO TROUGH @ 1,630 ON... 1630 ONCE XX ; Start 10/21/18 at 16:30; Stop 10/21/18 at 16:31 Hydromorphone HCl (Dilaudid) 2 mg Q4H PRN PO SEVERE PAIN LEVEL 7-10 Last administered on 10/21/18at 04:24; Admin Dose 2 MG; Start 10/20/18 at 18:30 Vancomycin/Sodium Chloride 250 ml @ 125 mls/hr Q8H IVPB Last administered on 10/21/18at 04:24; Admin Dose 125 MLS/HR; Start 10/21/18 at 05:00 BRIGETTE REYNA NP Oct 21, 2018 09:40
[2018-10-21] MEDS: METHADONE 10 MG TAB PO SCH (12:23)
[2018-10-21] MEDS ORDERED: SOD CHLORIDE 0.9% 1,000 ML IV SCH (12:30)
--- NOTE | 2018-10-21 13:37 | CONS ---
Assessment/Plan Assessment/Plan Hospital Course (Demo Recall) Patient is alert looks comfortable denies pain no fevers overnight WBC 13.4 neutrophils 69.4 BUN 10 creatinine 0.89 Microbiology: Blood culture on admission grew gram-positive cocci in pairs and clusters, 1 out of 2 sets urine culture negative wound culture pending Chest x-ray on admission revealed no evidence for active cardiopulmonary disease Antimicrobials: Vancomycin Zosyn Physical examination: Well-developed middle-aged white man who is alert in no distress. Head atraumatic normocephalic sclera nonicteric neck is supple chest rise symmetrical breath sounds clear heart S1-S2 abdomen soft bowel sounds present extremities with left shoulder wound VAC present patient has significant erythema around it Assessment: 1. Left shoulder abscess, status post I&D 2. Bacteremia 3. Systemic inflammatory response syndrome with resolving leukocytosis 4. IV drug abuse Plan: Patient remains stable, on appropriate antibiotics, will repeat blood cultures and await for wound and final cultures, consider 2D echo Consultation Date/Type/Reason Admit Date/Time Oct 20, 2018 at 13:01 Initial Consult Date 10/20/18 Type of Consult id Requesting Provider: JOSEPH ALCANTARA Date/Time of Note DATE: 10/21/18 TIME: 13:37 Exam/Review of Systems Exam Vitals Vital Signs Date Temp Pulse Resp B/P (MAP) Pulse Ox O2 O2 Flow FiO2 Time Delivery Rate 10/21/18 98.3 64 16 130/ 94 07:40 (56) 10/20/18 Room Air 14:31 Intake and Output 10/20/18 10/20/18 10/21/18 1515:00 23:00 07:00 IntakeIntake Total 850 ml 850 ml OutputOutput Total 50 ml 400 ml BalanceBalance 800 ml 450 ml Results Result Diagram: 10/21/18 0603 10/21/18 0603 Results 24hrs Laboratory Tests Test 10/20/18 13:54 10/21/18 06:03 Lactic Acid Level 0.7 White Blood Count 13.4 #H Red Blood Count 3.92 L Hemoglobin 11.1 L Hematocrit 33.5 L Mean Corpuscular Volume 85.5 Mean Corpuscular Hemoglobin 28.3 L Mean Corpuscular Hemoglobin Concent 33.1 Red Cell Distribution Width 12.6 Platelet Count 370 Mean Platelet Volume 9.4 Immature Granulocytes % 1.700 H Neutrophils % 69.4 Lymphocytes % 18.2 Monocytes % 9.0 Eosinophils % 1.3 Basophils % 0.4 Nucleated Red Blood Cells % 0.0 Immature Granulocytes # 0.230 H Neutrophils # 9.3 H Lymphocytes # 2.4 Monocytes # 1.2 H Eosinophils # 0.2 Basophils # 0.1 Nucleated Red Blood Cells # 0.0 Sodium Level 138 Potassium Level 3.5 Chloride Level 107 Carbon Dioxide Level 25 Anion Gap 6 Blood Urea Nitrogen 10 Creatinine 0.89 Est Glomerular Filtrat Rate mL/min > 60 Glucose Level 85 Hemoglobin A1c 5.3 Calcium Level 8.4 Phosphorus Level 4.1 Magnesium Level 1.8 Hepatitis B Surface Antigen NEGATIVE Hepatitis B Core Total Antibody NEGATIVE Hepatitis C Antibody NEGATIVE HIV (1&2) Antibody NEGATIVE Medications Medication Current Medications IV Flush (NS 3 ml) 3 ml PER PROTOCOL IV ; Start 10/20/18 at 14:00 Ondansetron HCl (Zofran Inj) 4 mg Q6H PRN IV NAUSEA/VOMITING; Start 10/20/18 at 14:00 Acetaminophen (Tylenol Tab) 650 mg Q6H PRN PO .PAIN 1-3 OR TEMP; Start 10/20/18 at 14:00 Acetaminophen/ Hydrocodone Bitart ([place] (5/325)) 1 tab Q6H PRN PO .MOD PAIN 4- 6; Start 10/20/18 at 14:00 Morphine Sulfate (morphine) 2 mg Q4H PRN IV .SEVERE PAIN 7-10; Start 10/20/18 at 14:00 Docusate Sodium (Colace) 100 mg Q12H PRN PO .CONSTIPATION; Start 10/20/18 at 14:00 Zolpidem Tartrate (Ambien) 5 mg QHS PRN PO .INSOMNIA; Start 10/20/18 at 14:00 Vancomycin HCl (Vanco Iv Per Pharmacy) VANCOMYCIN PER PHARMACY PER PROTOCOL XX ; Start 10/20/18 at 14:00 Piperacillin Sod/ Tazobactam Sod 100 ml @ 200 mls/hr Q6 IVPB Last administered on 10/21/18at 12:24; Admin Dose 200 MLS/HR; Start 10/20/18 at 18:00 Ketorolac Tromethamine (Toradol) 15 mg PACU ORDER PRN IV FOR PAIN AFTER IV NARCO TIC MED; Start 10/20/18 at 17:00; Stop 10/23/18 at 21:00 Acetaminophen (Tylenol Tab) 650 mg Q6H PRN PO MILD PAIN(1-3)OR ELEVATED TEMP; Start 10/20/18 at 17:30 Ibuprofen (Motrin) 600 mg Q6H PRN PO PAIN LEVEL 6-10; Start 10/20/18 at 17:30 Ketorolac Tromethamine (Toradol) 30 mg Q6H PRN IV PAIN; Start 10/20/18 at 17:30; Stop 10/23/18 at 17:29 Acetaminophen/ Hydrocodone Bitart ([place] (5/325)) 1 tab Q6H PRN PO PAIN LEVEL 6-10 Last administered on 10/21/18at 06:44; Admin Dose 1 TAB; Start 10/20/18 at 17:30 Ondansetron HCl (Zofran Inj) 4 mg Q6H PRN IV NAUSEA AND/OR VOMITING; Start 10/20/18 at 17:30 Diphenhydramine HCl (Benadryl) 25 mg Q6H PRN IV ITCHING; Start 10/20/18 at 17:30 Miscellaneous Information (*Rx Drug Level Order Reminder*) VANCO TROUGH @ 1,630 ON... 1630 ONCE XX ; Start 10/21/18 at 16:30; Stop 10/21/18 at 16:31 Hydromorphone HCl (Dilaudid) 2 mg Q4H PRN PO SEVERE PAIN LEVEL 7-10 Last administered on 10/21/18at 09:55; Admin Dose 2 MG; Start 10/20/18 at 18:30 Vancomycin/Sodium Chloride 250 ml @ 125 mls/hr Q8H IVPB Last administered on 10/21/18at 04:24; Admin Dose 125 MLS/HR; Start 10/21/18 at 05:00 Methadone HCl (Methadone) 40 mg DAILY PO Last administered on 10/21/18 12:23; Admin Dose 40 MG; Start 10/21/18 at 12:00 Sodium Chloride 1,000 ml @ 100 mls/hr Q10H IV Last administered on 10/21/18at 12:24; Admin Dose 100 MLS/HR; Start 10/21/18 at 12:30; Stop 10/21/18 at 22:29 SUNITA CROWELL NP Oct 21, 2018 13:37
[2018-10-21 14:41] VITALS: BP 131/78; PULSE 63; RESP 16
[2018-10-21 19:42] VITALS: BP 124/86; PULSE 55; RESP 16
[2018-10-22] MEDS: PIPER-TAZO 3.375 GM IV (PMX) 100 ML IVPB SCH ×3 (00:10→11:31)
[2018-10-22 01:55] VITALS: BP 139/85; PULSE 71; RESP 16
[2018-10-22] MEDS: morphine 2 MG INJ IV PRN ×2 (02:55→11:31)
[2018-10-22] MEDS: VANCOMYCIN 750 MG (PMX) 250 ML IVPB SCH ×3 (05:21→22:43)
[2018-10-22] MEDS ORDERED: morphine 2 MG INJ IV PRN (06:00)
[2018-10-22 08:00] VITALS: BP 133/74; PULSE 55; RESP 18
[2018-10-22] MEDS: METHADONE 10 MG TAB PO SCH (08:36)
--- NOTE | 2018-10-22 10:54 | PN ---
Date/Time of Note Date/Time of Note DATE: 10/22/18 TIME: 10:54 Assessment/Plan VTE Prophylaxis SCD applied (from Nsg): Yes Pharmacological prophylaxis: NA/contraindicated Pharm contraindication: low risk/ambulating Lines/Catheters IV Catheter Type (from Nrsg): Peripheral IV Assessment/Plan Hospital Course SUBJECTIVE: Continues to complain of significant pain. OBJECTIVE: Physical Exam General: Adequately build 28 year-old male lying in bed in no apparent distress. HEENT: Normocephalic, atraumatic. Eyes: Anicteric sclerae, conjunctivae clear. ENT: Nasal septum midline, oral mucosa moist. Neck supple, no JVD noticed. Respiratory: Bilaterally diminished breath sounds. No use of accessory muscles of respiration. No adventitious breath sounds. Cardiovascular: S1, S2 heard. Regular rate and rhythm. Abdomen: Soft, nontender, and nondistended. Bowel sounds positive in all 4 quadrants. Genitourinary: Deferred. Extremities: No cyanosis, no clubbing, no edema. Peripheral pulses palpable. Left deltoid area surgical incision with wound VAC over it. Neurologic: Cranial nerves II through XII grossly intact. The patient is awake, alert, and oriented. Skin: Normal skin turgor. No skin rashes. Labs & Vitals per chart ASSESSMENT & PLAN 28-year-old male with a prior history of IV drug abuse who has been obtained for several months and is on methadone who came to the emergency room with a spontaneously developed left shoulder abscess with evidence of sepsis with leukocytosis, and tachycardia secondary to underlying left arm abscess who was admitted to inpatient setting. 1. Sepsis with leukocytosis and febrile illness secondary to left, abscess, present on admission. Continue antimicrobials as per ID. 2. Left shoulder abscess. Status post incision and drainage on 10/20/2018. Continue negative pressure Continue wound care as per general surgery. 3. Normocytic anemia. Most probably anemia chronic disease. Monitor H&H closely. 4. History of heroin abuse. Patient has been clean for the past several months and is on methadone. Continue methadone. 5. Fluids, electrolytes, and nutrition. Regular diet. 6. DVT prophylaxis. Bilateral SCDs. 7. Plan. Continue antimicrobials as per ID. Adjust opioid dosing to obtain optimal pain control. Await clinical improvement and clearance from consultants before discharging the patient home. Patient was seen in collaboration with Dr. Larios. Result Diagram: 10/21/1860210/21/18602 Exam/Review of Systems Exam Vitals Vital Signs Date Temp Pulse Resp B/P (MAP) Pulse Ox O2 O2 Flow FiO2 Time Delivery Rate 10/22/18 98.2 55 18 133/74 97 Room Air 08:00 (93) Intake and Output 10/21/18 10/21/18 10/22/18 1515:00 23:00 07:00 IntakeIntake Total 1580 ml 1600 ml 1050 ml OutputOutput Total 1250 ml 150 ml 700 ml BalanceBalance 330 ml 1450 ml 350 ml Medications Medication Current Medications IV Flush (NS 3 ml) 3 ml PER PROTOCOL IV ; Start 10/20/18 at 14:00 Ondansetron HCl (Zofran Inj) 4 mg Q6H PRN IV NAUSEA/VOMITING; Start 10/20/18 at 14:00 Acetaminophen (Tylenol Tab) 650 mg Q6H PRN PO .PAIN 1-3 OR TEMP; Start 10/20/18 at 14:00 Acetaminophen/ Hydrocodone Bitart ([place] (5/325)) 1 tab Q6H PRN PO .MOD PAIN 4- 6; Start 10/20/18 at 14:00 Docusate Sodium (Colace) 100 mg Q12H PRN PO .CONSTIPATION; Start 10/20/18 at 14:00 Zolpidem Tartrate (Ambien) 5 mg QHS PRN PO .INSOMNIA Last administered on 10/22/18at 03:01; Admin Dose 5 MG; Start 10/20/18 at 14:00 Vancomycin HCl (Vanco Iv Per Pharmacy) VANCOMYCIN PER PHARMACY PER PROTOCOL XX ; Start 10/20/18 at 14:00 Piperacillin Sod/ Tazobactam Sod 100 ml @ 200 mls/hr Q6 IVPB Last administered on 10/22/18at 05:21; Admin Dose 200 MLS/HR; Start 10/20/18 at 18:00 Acetaminophen (Tylenol Tab) 650 mg Q6H PRN PO MILD PAIN(1-3)OR ELEVATED TEMP; Start 10/20/18 at 17:30 Ibuprofen (Motrin) 600 mg Q6H PRN PO PAIN LEVEL 6-10; Start 10/20/18 at 17:30 Ketorolac Tromethamine (Toradol) 30 mg Q6H PRN IV PAIN; Start 10/20/18 at 17:30; Stop 10/23/18 at 17:29 Acetaminophen/ Hydrocodone Bitart ([place] (5/325)) 1 tab Q6H PRN PO PAIN LEVEL 6-10 Last administered on 10/21/18at 06:44; Admin Dose 1 TAB; Start 10/20/18 at 17:30 Ondansetron HCl (Zofran Inj) 4 mg Q6H PRN IV NAUSEA AND/OR VOMITING; Start 10/20/18 at 17:30 Diphenhydramine HCl (Benadryl) 25 mg Q6H PRN IV ITCHING; Start 10/20/18 at 17:30 Hydromorphone HCl (Dilaudid) 2 mg Q4H PRN PO SEVERE PAIN LEVEL 7-10 Last administered on 10/21/18at 20:51; Admin Dose 2 MG; Start 10/20/18 at 18:30 Vancomycin/Sodium Chloride 250 ml @ 125 mls/hr Q8H IVPB Last administered on 10/22/18at 05:21; Admin Dose 125 MLS/HR; Start 10/21/18 at 05:00 Methadone HCl (Methadone) 40 mg DAILY PO Last administered on 10/22/18at 08:36; Admin Dose 40 MG; Start 10/21/18 at 12:00 Miscellaneous Information (*Rx Drug Level Order Reminder*) VANCO TR LEVEL PRIOR... 1200 ONCE XX ; Start 10/22/18 at 12:00; Stop 10/22/18 at 12:01 Morphine Sulfate (morphine) 2 mg Q8H PRN IV .SEVERE PAIN 7-10 Last administered on 10/22/18at 02:55; Admin Dose 2 MG; Start 10/22/18 at 02:24 BRIGETTE REYNA NP Oct 22, 2018 10:54
[2018-10-22] MEDS: HYDROmorphONE 2 MG/ML SYG IV PRN ×3 (13:08→21:43)
--- NOTE | 2018-10-22 14:25 | CONS ---
Assessment/Plan Assessment/Plan Hospital Course (Demo Recall) Awake looks comfortable no fevers overnight. Abscess cultures growing staph aureus and alpha hemolytic strep species, final sensitivities pending, blood culture on admission grew staph species Chest x-ray on admission revealed no evidence for active cardiopulmonary disease Antimicrobials: Vancomycin Zosyn Physical examination: Well-developed middle-aged white man who is alert in no distress. Head atraumatic normocephalic sclera nonicteric neck is supple chest rise symmetrical breath sounds clear heart S1-S2 abdomen soft bowel sounds present extremities with left shoulder wound VAC present patient has significant erythema around it Assessment: 1. Left shoulder abscess, status post I&D 2. Bacteremia 3. Systemic inflammatory response syndrome with resolving leukocytosis 4. IV drug abuse Plan: Patient remains stable, DC Zosyn continue vancomycin and await for final cultures, f/u 2D echo Consultation Date/Type/Reason Admit Date/Time Oct 20, 2018 at 13:01 Initial Consult Date 10/20/18 Type of Consult id Requesting Provider: JOSEPH ALCANTARA Date/Time of Note DATE: 10/22/18 TIME: 14:24 Exam/Review of Systems Exam Vitals Vital Signs Date Temp Pulse Resp B/P (MAP) Pulse Ox O2 O2 Flow FiO2 Time Delivery Rate 10/22/18 98.2 55 18 133/74 97 Room Air 08:00 (93) Intake and Output 10/21/18 10/21/18 10/22/18 1515:00 23:00 07:00 IntakeIntake Total 1580 ml 1600 ml 1050 ml OutputOutput Total 1250 ml 150 ml 700 ml BalanceBalance 330 ml 1450 ml 350 ml Results Result Diagram: 10/21/18 0603 10/21/18 0603 Medications Medication Current Medications IV Flush (NS 3 ml) 3 ml PER PROTOCOL IV ; Start 10/20/18 at 14:00 Ondansetron HCl (Zofran Inj) 4 mg Q6H PRN IV NAUSEA/VOMITING; Start 10/20/18 at 14:00 Acetaminophen (Tylenol Tab) 650 mg Q6H PRN PO .PAIN 1-3 OR TEMP; Start 10/20/18 at 14:00 Acetaminophen/ Hydrocodone Bitart ([place] (5/325)) 1 tab Q6H PRN PO .MOD PAIN 4- 6; Start 10/20/18 at 14:00 Docusate Sodium (Colace) 100 mg Q12H PRN PO .CONSTIPATION; Start 10/20/18 at 14:00 Zolpidem Tartrate (Ambien) 5 mg QHS PRN PO .INSOMNIA Last administered on 10/22/18at 03:01; Admin Dose 5 MG; Start 10/20/18 at 14:00 Vancomycin HCl (Vanco Iv Per Pharmacy) VANCOMYCIN PER PHARMACY PER PROTOCOL XX ; Start 10/20/18 at 14:00 Piperacillin Sod/ Tazobactam Sod 100 ml @ 200 mls/hr Q6 IVPB Last administered on 10/22/18at 11:31; Admin Dose 200 MLS/HR; Start 10/20/18 at 18:00 Acetaminophen (Tylenol Tab) 650 mg Q6H PRN PO MILD PAIN(1-3)OR ELEVATED TEMP; Start 10/20/18 at 17:30 Ibuprofen (Motrin) 600 mg Q6H PRN PO PAIN LEVEL 6-10; Start 10/20/18 at 17:30 Ketorolac Tromethamine (Toradol) 30 mg Q6H PRN IV PAIN; Start 10/20/18 at 17:30; Stop 10/23/18 at 17:29 Acetaminophen/ Hydrocodone Bitart ([place] (5/325)) 1 tab Q6H PRN PO PAIN LEVEL 6-10 Last administered on 10/21/18at 06:44; Admin Dose 1 TAB; Start 10/20/18 at 17:30 Ondansetron HCl (Zofran Inj) 4 mg Q6H PRN IV NAUSEA AND/OR VOMITING; Start 10/20/18 at 17:30 Diphenhydramine HCl (Benadryl) 25 mg Q6H PRN IV ITCHING; Start 10/20/18 at 17:30 Vancomycin/Sodium Chloride 250 ml @ 125 mls/hr Q8H IVPB Last administered on 10/22/18at 05:21; Admin Dose 125 MLS/HR; Start 10/21/18 at 05:00 Methadone HCl (Methadone) 40 mg DAILY PO Last administered on 10/22/18at 08:36; Admin Dose 40 MG; Start 10/21/18 at 12:00 Morphine Sulfate (Ms Contin (Er)) 30 mg BID PO ; Start 10/22/18 at 21:00 Hydromorphone HCl (Dilaudid) 1.5 mg Q4H PRN IV SEVERE PAIN LEVEL 7-10 Last admi nistered on 10/22/18at 13:08; Admin Dose 1.5 MG; Start 10/22/18 at 12:30 Miscellaneous Information (*Rx Drug Level Order Reminder*) MARCIAL TR @ 2,000 2000 ONCE XX ; Start 10/22/18 at 20:00; Stop 10/22/18 at 20:01 SUNITA CROWELL NP Oct 22, 2018 14:25
[2018-10-22 14:37] VITALS: BP 139/83; PULSE 50; RESP 18
--- NOTE | 2018-10-22 14:59 | RADRPT ---
Echocardiogram Report Patient Name: ERNESTO POOLPatient ID: [id number] : 1990 (28y 4m)Study Date: 10/22/2018 9:25:16 AM Gender: MAccession #: [id number] Tech: Radhames Blanco [facility] Location: [address] Ref.Physician: SUNITA CROWELL Height(Cm): BSA: Weight(Kg): Quality: AdequateOrder Physician: SUNITA CROWELL Account #: Procedures: Echocardiographic Report: Transthoracic echocardiogram with complete 2D, M-Mode, and doppler examination. Indications: R/o vegetation. Measurements: 2D/M Mode Doppler Measurement Value Normal Range Measurement Value Normal Range LVIDd 2D 4.8 [ 4.2 - 5.8 ] cm AV Peak David 1.2 [ 100.0 - 170.0 ] cm/sec LVIDs 2D 2.9 [ 2.5 - 4.0 ] cm AV Peak PG 6.0 [ 2.0 - 9.0 ] mmHg LVPWd 2D 0.8 [ 0.6 - 1.0 ] cm LVOT Peak David 1.0 [ 70.0 - 110.0 ] cm/sec IVSd 2D 0.8 [ 0.6 - 1.0 ] cm LVOT Peak PG 4.0 [ 2.0 - 6.0 ] mmHg AoR Diam 2D 2.7 [ 2.6 - 3.4 ] cm MV E Peak David 1.1 [ 60.0 - 130.0 ] cm/sec EDV 2D 109.0 [ 62.0 - 150.0 ] ml MV A Peak David 0.4 [ 100.0 - 120.0 ] cm/sec ESV 2D 33.3 [ 21.0 - 61.0 ] ml MV E/A 2.8 [ 0.8 - 1.5 ] ratio EF 2D 69.4 [ 52.0 - 72.0 ] percent MV Decel Time 254 [ 104 - 258 ] msec LA Dimen 2D 3.9 [ 3.0 - 4.0 ] cm Lat E` David 0.2 [ 10.0 - 15.0 ] cm/sec Lateral E/E` 5.6 [ 1.0 - 2.0 ] ratio MV E/A 2.8 [ 0.8 - 1.5 ] ratio TR Peak David 2.7 [ 100.0 - 280.0 ] cm/sec TR Peak PG 28.0 mmHg RVSP 31.0 [ 10.0 - 36.0 ] mmHg Findings: Left Ventricle: Normal left ventricular systolic function. Normal left ventricular cavity size. Normal left ventricular wall thickness. Ejection fraction is visually estimated at 60 %. Tissue Doppler/Mitral Doppler indices are consistent with restrictive physiology with markedly elevated left atrial pressure (Stage III-IV diastolic dysfunction). Right Ventricle: Normal right ventricular size. Normal right ventricular systolic function. Left Atrium: The left atrium is normal in size. Right Atrium: The right atrium is normal in size. Mitral Valve: Normal appearance and function of the mitral valve with trace physiologic regurgitation. No evidence of endocarditis. Aortic Valve: No significant aortic stenosis or insufficiency. Aortic cusps appear mildly calcified. No evidence of endocarditis. Tricuspid Valve: Normal appearance of the tricuspid valve. The estimated Peak RVSP is 31 mmHg. There is mild tricuspid regurgitation. No evidence of endocarditis. Pericardium: Normal pericardium with no significant pericardial effusion. Aorta: Normal aortic root. IVC: Normal size and normal respiratory collapse consistent with normal right atrial pressure. Conclusions: Normal left ventricular systolic function. Normal left ventricular cavity size. Normal left ventricular wall thickness. Ejection fraction is visually estimated at 60 %. Tissue Doppler/Mitral Doppler indices are consistent with restrictive physiology with markedly elevated left atrial pressure (Stage III-IV diastolic dysfunction). Normal appearance and function of the mitral valve with trace physiologic regurgitation. No evidence of endocarditis. No significant aortic stenosis or insufficiency. Aortic cusps appear mildly calcified. No evidence of endocarditis. Normal appearance of the tricuspid valve. The estimated Peak RVSP is 31 mmHg. There is mild tricuspid regurgitation. No evidence of endocarditis. Electronically Signed By: Caleb Chow 2018-10-22 14:58:49 PDT
[2018-10-22 19:45] VITALS: BP 125/78; PULSE 60; RESP 18
[2018-10-22] MEDS: morphine (ER) 30 MG TAB PO SCH (20:35)
[2018-10-23 01:45] VITALS: BP 121/69; PULSE 54; RESP 16
[2018-10-23] MEDS: HYDROmorphONE 2 MG/ML SYG IV PRN ×6 (01:53→23:19)
[2018-10-23] MEDS: VANCOMYCIN 750 MG (PMX) 250 ML IVPB SCH ×3 (05:17→21:27)
[2018-10-23] MEDS: METHADONE 10 MG TAB PO SCH (08:06)
[2018-10-23 08:09] VITALS: BP 131/87; PULSE 58; RESP 18
[2018-10-23] MEDS: morphine (ER) 30 MG TAB PO SCH ×2 (09:16→21:26)
[2018-10-23] MEDS ORDERED: POTASSIUM CHLORIDE (SR) 20 MEQ TAB PO STA (10:49)
--- NOTE | 2018-10-23 11:10 | PN ---
Date/Time of Note Date/Time of Note DATE: 10/23/18 TIME: 11:09 Assessment/Plan VTE Prophylaxis SCD applied (from Nsg): Yes Pharmacological prophylaxis: NA/contraindicated Pharm contraindication: low risk/ambulating Lines/Catheters IV Catheter Type (from Nrsg): Saline Lock Assessment/Plan Hospital Course SUBJECTIVE: Continues to complain of pain. Asking for a PICC line because of the need for multiple blood draws and because of the need for IV antibiotic therapy. OBJECTIVE: Physical Exam General: Adequately build 28 year-old male lying in bed in no apparent distress. HEENT: Normocephalic, atraumatic. Eyes: Anicteric sclerae, conjunctivae clear. ENT: Nasal septum midline, oral mucosa moist. Neck supple, no JVD noticed. Respiratory: Bilaterally diminished breath sounds. No use of accessory muscles of respiration. No adventitious breath sounds. Cardiovascular: S1, S2 heard. Regular rate and rhythm. Abdomen: Soft, nontender, and nondistended. Bowel sounds positive in all 4 quadrants. PICC line insertion Genitourinary: Deferred. Extremities: No cyanosis, no clubbing, no edema. Peripheral pulses palpable. Left deltoid area surgical incision with wound VAC over it. Neurologic: Cranial nerves II through XII grossly intact. The patient is awake, alert, and oriented. Skin: Normal skin turgor. No skin rashes. Labs & Vitals per chart ASSESSMENT & PLAN 28-year-old male with a prior history of IV drug abuse who has been clean for several months and is on methadone who came to the emergency room with a spontaneously developed left shoulder abscess with evidence of sepsis with leukocytosis, and tachycardia secondary to underlying left arm abscess who was admitted to inpatient setting. 1. Sepsis with leukocytosis and febrile illness secondary to left, abscess, present on admission. Fluid culture growing-beta and alpha-hemolytic Streptococcus along with MRSA. Continue antimicrobials as per ID. 2. Left shoulder abscess. Status post incision and drainage on 10/20/2018. Continue negative pressure. Continue wound care as per general surgery. 3. Normocytic anemia. Most probably anemia chronic disease. Monitor H&H closely. 4. History of heroin abuse. Patient has been clean for the past several months and is on methadone. Continue methadone. 5. Fluids, electrolytes, and nutrition. Regular diet. 6. DVT prophylaxis. Bilateral SCDs. 7. Plan. Continue antimicrobials as per ID. Adjust opioid dosing to obtain optimal pain control. The patient needs wound VAC for approximately 1 to 2 weeks as per the surgeon. PICC line insertion, provided the patient's PICC line will be discontinued prior to discharging the patient home because of the patient's prior history of heroin abuse. The patient was seen in collaboration with Dr. Larios. Result Diagram: 10/22/18201410/22/182014 Results 24hrs Laboratory Tests Test 10/22/18 20:15 White Blood Count 16.1 #H Red Blood Count 4.04 L Hemoglobin 11.5 L Hematocrit 34.8 L Mean Corpuscular Volume 86.1 Mean Corpuscular Hemoglobin 28.5 L Mean Corpuscular Hemoglobin Concent 33.0 Red Cell Distribution Width 12.3 Platelet Count 464 #H Mean Platelet Volume 9.3 Immature Granulocytes % 2.700 H Neutrophils % 71.2 Lymphocytes % 17.7 Monocytes % 6.8 Eosinophils % 1.0 Basophils % 0.6 Nucleated Red Blood Cells % 0.0 Immature Granulocytes # 0.430 H Neutrophils # 11.5 H Lymphocytes # 2.9 Monocytes # 1.1 H Eosinophils # 0.2 Basophils # 0.1 Nucleated Red Blood Cells # 0.0 Erythrocyte Sedimentation Rate 53 H Sodium Level 139 Potassium Level 3.1 L Chloride Level 105 Carbon Dioxide Level 24 Anion Gap 10 Blood Urea Nitrogen 9 Creatinine 0.92 Est Glomerular Filtrat Rate mL/min > 60 Glucose Level 163 Calcium Level 8.8 Phosphorus Level 3.7 Magnesium Level 1.9 C-Reactive Protein 6.1 H Vancomycin Level Trough 5.9 L Exam/Review of Systems Exam Vitals Vital Signs Date Temp Pulse Resp B/P (MAP) Pulse Ox O2 O2 Flow FiO2 Time Delivery Rate 10/23/18 98.3 58 18 131/87 97 Room Air 08:09 (102) Intake and Output 10/22/18 10/22/18 10/23/18 1515:00 23:00 07:00 IntakeIntake Total 580 ml 250 ml OutputOutput Total 250 ml 400 ml 400 ml BalanceBalance 330 ml -400 ml -150 ml Results Results 24hrs Laboratory Tests Test 10/22/18 20:15 White Blood Count 16.1 #H Red Blood Count 4.04 L Hemoglobin 11.5 L Hematocrit 34.8 L Mean Corpuscular Volume 86.1 Mean Corpuscular Hemoglobin 28.5 L Mean Corpuscular Hemoglobin Concent 33.0 Red Cell Distribution Width 12.3 Platelet Count 464 #H Mean Platelet Volume 9.3 Immature Granulocytes % 2.700 H Neutrophils % 71.2 Lymphocytes % 17.7 Monocytes % 6.8 Eosinophils % 1.0 Basophils % 0.6 Nucleated Red Blood Cells % 0.0 Immature Granulocytes # 0.430 H Neutrophils # 11.5 H Lymphocytes # 2.9 Monocytes # 1.1 H Eosinophils # 0.2 Basophils # 0.1 Nucleated Red Blood Cells # 0.0 Erythrocyte Sedimentation Rate 53 H Sodium Level 139 Potassium Level 3.1 L Chloride Level 105 Carbon Dioxide Level 24 Anion Gap 10 Blood Urea Nitrogen 9 Creatinine 0.92 Est Glomerular Filtrat Rate mL/min > 60 Glucose Level 163 Calcium Level 8.8 Phosphorus Level 3.7 Magnesium Level 1.9 C-Reactive Protein 6.1 H Vancomycin Level Trough 5.9 L Medications Medication Current Medications IV Flush (NS 3 ml) 3 ml PER PROTOCOL IV ; Start 10/20/18 at 14:00 Ondansetron HCl (Zofran Inj) 4 mg Q6H PRN IV NAUSEA/VOMITING; Start 10/20/18 at 14:00 Acetaminophen (Tylenol Tab) 650 mg Q6H PRN PO .PAIN 1-3 OR TEMP; Start 10/20/18 at 14:00 Acetaminophen/ Hydrocodone Bitart ([place] (5/325)) 1 tab Q6H PRN PO .MOD PAIN 4- 6; Start 10/20/18 at 14:00 Docusate Sodium (Colace) 100 mg Q12H PRN PO .CONSTIPATION; Start 10/20/18 at 14:00 Zolpidem Tartrate (Ambien) 5 mg QHS PRN PO .INSOMNIA Last administered on 10/22/18at 03:01; Admin Dose 5 MG; Start 10/20/18 at 14:00 Vancomycin HCl (Vanco Iv Per Pharmacy) VANCOMYCIN PER PHARMACY PER PROTOCOL XX ; Start 10/20/18 at 14:00 Acetaminophen (Tylenol Tab) 650 mg Q6H PRN PO MILD PAIN(1-3)OR ELEVATED TEMP; Start 10/20/18 at 17:30 Ibuprofen (Motrin) 600 mg Q6H PRN PO PAIN LEVEL 6-10; Start 10/20/18 at 17:30 Ketorolac Tromethamine (Toradol) 30 mg Q6H PRN IV PAIN; Start 10/20/18 at 17:30; Stop 10/23/18 at 17:29 Acetaminophen/ Hydrocodone Bitart ([place] (5/325)) 1 tab Q6H PRN PO PAIN LEVEL 6-10 Last administered on 10/21/18at 06:44; Admin Dose 1 TAB; Start 10/20/18 at 17:30 Ondansetron HCl (Zofran Inj) 4 mg Q6H PRN IV NAUSEA AND/OR VOMITING; Start 10/20/18 at 17:30 Diphenhydramine HCl (Benadryl) 25 mg Q6H PRN IV ITCHING; Start 10/20/18 at 17:30 Vancomycin/Sodium Chloride 250 ml @ 125 mls/hr Q8H IVPB Last administered on 10/23/18at 05:17; Admin Dose 125 MLS/HR; Start 10/21/18 at 05:00 Methadone HCl (Methadone) 40 mg DAILY PO Last administered on 10/23/18at 08:06; Admin Dose 40 MG; Start 10/21/18 at 12:00 Morphine Sulfate (Ms Contin (Er)) 30 mg BID PO Last administered on 10/23/18at 09:16; Admin Dose 30 MG; Start 10/22/18 at 21:00 Hydromorphone HCl (Dilaudid) 1.5 mg Q4H PRN IV SEVERE PAIN LEVEL 7-10 Last administered on 10/23/18at 10:30; Admin Dose 1.5 MG; Start 10/22/18 at 12:30 Miscellaneous Information (*Rx Drug Level Order Reminder*) VANCO TROUGH 1999 ONCE XX ; Start 10/23/18 at 20:00; Stop 10/23/18 at 20:01 BRIGETTE REYNA NP Oct 23, 2018 11:10
[2018-10-23] MEDS ORDERED: LIDOCAINE 1% (MPF) 5 ML VIAL SC ONE (12:00)
--- NOTE | 2018-10-23 13:09 | CONS ---
Assessment/Plan Assessment/Plan Hospital Course (Demo Recall) Alert feels better no fevers overnight. Abscess culture grew MRSA, alphahemolytic and beta-hemolytic strep's, blood cultures grew staph on admission 1 out of 2 sets, repeat blood cultures pending Antimicrobials: Nileo Physical examination: Well-developed middle-aged white man who is alert in no distress. Head atraumatic normocephalic sclera nonicteric neck is supple chest rise symmetrical breath sounds clear heart S1-S2 abdomen soft bowel sounds present extremities with left shoulder wound VAC present erythema markedly improved Assessment: 1. Left shoulder abscess, status post I&D 2. Bacteremia 3. Systemic inflammatory response syndrome with resolving leukocytosis 4. IV drug abuse Plan: Patient remains stable, 2D echo revealed no vegetations, continue vancomycin, follow repeat blood cultures, anticipate discharge on oral antibiotics Consultation Date/Type/Reason Admit Date/Time Oct 20, 2018 at 13:01 Initial Consult Date 10/20/18 Type of Consult id Requesting Provider: JOSEPH ALCANTARA Date/Time of Note DATE: 10/23/18 TIME: 13:07 Exam/Review of Systems Exam Vitals Vital Signs Date Temp Pulse Resp B/P (MAP) Pulse Ox O2 O2 Flow FiO2 Time Delivery Rate 10/23/18 98.3 58 18 131/87 97 Room Air 08:09 (102) Intake and Output 10/22/18 10/22/18 10/23/18 1515:00 23:00 07:00 IntakeIntake Total 580 ml 250 ml OutputOutput Total 250 ml 400 ml 400 ml BalanceBalance 330 ml -400 ml -150 ml Results Result Diagram: 10/22/18201410/22/182014 Results 24hrs Laboratory Tests Test 10/22/18 20:15 White Blood Count 16.1 #H Red Blood Count 4.04 L Hemoglobin 11.5 L Hematocrit 34.8 L Mean Corpuscular Volume 86.1 Mean Corpuscular Hemoglobin 28.5 L Mean Corpuscular Hemoglobin Concent 33.0 Red Cell Distribution Width 12.3 Platelet Count 464 #H Mean Platelet Volume 9.3 Immature Granulocytes % 2.700 H Neutrophils % 71.2 Lymphocytes % 17.7 Monocytes % 6.8 Eosinophils % 1.0 Basophils % 0.6 Nucleated Red Blood Cells % 0.0 Immature Granulocytes # 0.430 H Neutrophils # 11.5 H Lymphocytes # 2.9 Monocytes # 1.1 H Eosinophils # 0.2 Basophils # 0.1 Nucleated Red Blood Cells # 0.0 Erythrocyte Sedimentation Rate 53 H Sodium Level 139 Potassium Level 3.1 L Chloride Level 105 Carbon Dioxide Level 24 Anion Gap 10 Blood Urea Nitrogen 9 Creatinine 0.92 Est Glomerular Filtrat Rate mL/min > 60 Glucose Level 163 Calcium Level 8.8 Phosphorus Level 3.7 Magnesium Level 1.9 C-Reactive Protein 6.1 H Vancomycin Level Trough 5.9 L Medications Medication Current Medications IV Flush (NS 3 ml) 3 ml PER PROTOCOL IV ; Start 10/20/18 at 14:00 Ondansetron HCl (Zofran Inj) 4 mg Q6H PRN IV NAUSEA/VOMITING; Start 10/20/18 at 14:00 Acetaminophen (Tylenol Tab) 650 mg Q6H PRN PO .PAIN 1-3 OR TEMP; Start 10/20/18 at 14:00 Acetaminophen/ Hydrocodone Bitart ([place] (5/325)) 1 tab Q6H PRN PO .MOD PAIN 4- 6; Start 10/20/18 at 14:00 Docusate Sodium (Colace) 100 mg Q12H PRN PO .CONSTIPATION; Start 10/20/18 at 14:00 Zolpidem Tartrate (Ambien) 5 mg QHS PRN PO .INSOMNIA Last administered on 10/22/18at 03:01; Admin Dose 5 MG; Start 10/20/18 at 14:00 Vancomycin HCl (Vanco Iv Per Pharmacy) VANCOMYCIN PER PHARMACY PER PROTOCOL XX ; Start 10/20/18 at 14:00 Acetaminophen (Tylenol Tab) 650 mg Q6H PRN PO MILD PAIN(1-3)OR ELEVATED TEMP; Start 10/20/18 at 17:30 Ibuprofen (Motrin) 600 mg Q6H PRN PO PAIN LEVEL 6-10; Start 10/20/18 at 17:30 Ketorolac Tromethamine (Toradol) 30 mg Q6H PRN IV PAIN; Start 10/20/18 at 17:30; Stop 10/23/18 at 17:29 Acetaminophen/ Hydrocodone Bitart ([place] (5/325)) 1 tab Q6H PRN PO PAIN LEVEL 6-10 Last administered on 10/21/18at 06:44; Admin Dose 1 TAB; Start 10/20/18 at 17:30 Ondansetron HCl (Zofran Inj) 4 mg Q6H PRN IV NAUSEA AND/OR VOMITING; Start 10/20/18 at 17:30 Diphenhydramine HCl (Benadryl) 25 mg Q6H PRN IV ITCHING; Start 10/20/18 at 17:30 Vancomycin/Sodium Chloride 250 ml @ 125 mls/hr Q8H IVPB Last administered on 10/23/18at 12:18; Admin Dose 125 MLS/HR; Start 10/21/18 at 05:00 Methadone HCl (Methadone) 40 mg DAILY PO Last administered on 10/23/18at 08:06; Admin Dose 40 MG; Start 10/21/18 at 12:00 Morphine Sulfate (Ms Contin (Er)) 30 mg BID PO Last administered on 10/23/18at 09:16; Admin Dose 30 MG; Start 10/22/18 at 21:00 Hydromorphone HCl (Dilaudid) 1.5 mg Q4H PRN IV SEVERE PAIN LEVEL 7-10 Last administered on 10/23/18at 10:30; Admin Dose 1.5 MG; Start 10/22/18 at 12:30 Miscellaneous Information (*Rx Drug Level Order Reminder*) VANCO TROUGH 1999 ONCE XX ; Start 10/23/18 at 20:00; Stop 10/23/18 at 20:01 SUNITA CROWELL NP Oct 23, 2018 13:09
[2018-10-23 14:00] VITALS: BP 127/77; PULSE 61; RESP 18
[2018-10-23 20:06] VITALS: BP 115/66; PULSE 63; RESP 18
[2018-10-23] MEDS: SACCHAROMYCES BOULARDII 250 MG CAP PO SCH (21:26)
[2018-10-24 01:38] VITALS: BP 137/75; PULSE 59; RESP 16
[2018-10-24] MEDS: HYDROmorphONE 2 MG/ML SYG IV PRN ×5 (04:01→22:32)
[2018-10-24] MEDS: VANCOMYCIN 1 GM 250 ML IVPB SCH ×3 (04:46→21:08)
[2018-10-24 07:49] VITALS: BP 122/76; PULSE 65; RESP 18
[2018-10-24] MEDS: SACCHAROMYCES BOULARDII 250 MG CAP PO SCH ×2 (09:02→21:19)
[2018-10-24] MEDS: METHADONE 10 MG TAB PO SCH (09:02)
[2018-10-24] MEDS: morphine (ER) 30 MG TAB PO SCH ×2 (09:03→21:06)
--- NOTE | 2018-10-24 10:18 | PN ---
Date/Time of Note Date/Time of Note DATE: 10/24/18 TIME: 10:17 Assessment/Plan VTE Prophylaxis SCD applied (from Nsg): Yes Pharmacological prophylaxis: NA/contraindicated Pharm contraindication: low risk/ambulating Lines/Catheters IV Catheter Type (from Nrsg): PICC Line Central line still needed: Yes Assessment/Plan Hospital Course SUBJECTIVE: Complains of diarrhea. OBJECTIVE: Physical Exam General: Adequately build 28 year-old male lying in bed in no apparent distress. HEENT: Normocephalic, atraumatic. Eyes: Anicteric sclerae, conjunctivae clear. ENT: Nasal septum midline, oral mucosa moist. Neck supple, no JVD noticed. Respiratory: Bilaterally diminished breath sounds. No use of accessory muscles of respiration. No adventitious breath sounds. Cardiovascular: S1, S2 heard. Regular rate and rhythm. Abdomen: Soft, nontender, and nondistended. Bowel sounds positive in all 4 quadrants. PICC line insertion Genitourinary: Deferred. Extremities: No cyanosis, no clubbing, no edema. Peripheral pulses palpable. Left deltoid area surgical incision with wound VAC over it. Neurologic: Cranial nerves II through XII grossly intact. The patient is awake, alert, and oriented. Skin: Normal skin turgor. No skin rashes. Labs & Vitals per chart ASSESSMENT & PLAN 28-year-old male with a prior history of IV drug abuse who has been clean for several months and is on methadone who came to the emergency room with a spontaneously developed left shoulder abscess with evidence of sepsis with leukocytosis, and tachycardia secondary to underlying left arm abscess who was admitted to inpatient setting. 1. Sepsis with leukocytosis and febrile illness secondary to left, abscess, present on admission. Fluid culture growing-beta and alpha-hemolytic Streptococcus along with MRSA. Continue antimicrobials as per ID. 2. Left shoulder abscess. Status post incision and drainage on 10/20/2018. Continue negative pressure. Continue wound care as per general surgery. 3. Normocytic anemia. Most probably anemia chronic disease. Monitor H&H closely. 4. History of heroin abuse. Patient has been clean for the past several months and is on methadone. Continue methadone. 5. Fluids, electrolytes, and nutrition. Regular diet. 6. DVT prophylaxis. Bilateral SCDs. 7. Plan. Continue antimicrobials as per ID. The patient needs wound VAC for approximately 1 to 2 weeks as per the surgeon. Disposition: Home with home health and wound vac on oral ABX once arrangements are made. The patient was seen in collaboration with Dr. Larois. Result Diagram: 10/24/18 0444 10/24/184 Results 24hrs Laboratory Tests Test 10/23/18 17:40 10/23/18 19:58 10/24/18 04:44 White Blood Count 13.8 H 15.0 H Red Blood Count 4.19 L 3.71 L Hemoglobin 11.7 L 10.6 L Hematocrit 35.9 L 32.4 L Mean Corpuscular Volume 85.7 87.3 Mean Corpuscular Hemoglobin 27.9 L 28.6 L Mean Corpuscular Hemoglobin Concent 32.6 32.7 Red Cell Distribution Width 12.5 12.3 Platelet Count 396 325 Mean Platelet Volume 9.4 10.4 Immature Granulocytes % 4.200 H 2.900 H Neutrophils % 67.4 67.7 Lymphocytes % 19.2 18.4 Monocytes % 6.7 8.8 Eosinophils % 1.8 1.8 Basophils % 0.7 0.4 Nucleated Red Blood Cells % 0.0 0.0 Immature Granulocytes # 0.580 H 0.430 H Neutrophils # 9.3 H 10.1 H Lymphocytes # 2.7 2.8 Monocytes # 0.9 1.3 H Eosinophils # 0.3 0.3 Basophils # 0.1 0.1 Nucleated Red Blood Cells # 0.0 0.0 Sodium Level 140 138 Potassium Level 3.5 3.3 L Chloride Level 106 106 Carbon Dioxide Level 24 24 Anion Gap 10 8 Blood Urea Nitrogen 7 7 Creatinine 0.78 0.87 Est Glomerular Filtrat Rate mL/min > 60 > 60 Glucose Level 147 78 # Calcium Level 8.6 8.5 Phosphorus Level 2.4 #L 4.4 # Magnesium Level 2.2 2.0 Vancomycin Level Trough 9.0 L Exam/Review of Systems Exam Vitals Vital Signs Date Temp Pulse Resp B/P (MAP) Pulse Ox O2 O2 Flow FiO2 Time Delivery Rate 10/24/18 98.2 65 18 122/76 94 Room Air 07:49 (91) Intake and Output 10/23/18 10/23/18 10/24/18 1515:00 23:00 07:00 IntakeIntake Total 850 ml 490 ml 750 ml OutputOutput Total 900 ml 0 ml 700 ml BalanceBalance -50 ml 490 ml 50 ml Results Results 24hrs Laboratory Tests Test 10/23/18 17:40 10/23/18 19:58 10/24/18 04:44 White Blood Count 13.8 H 15.0 H Red Blood Count 4.19 L 3.71 L Hemoglobin 11.7 L 10.6 L Hematocrit 35.9 L 32.4 L Mean Corpuscular Volume 85.7 87.3 Mean Corpuscular Hemoglobin 27.9 L 28.6 L Mean Corpuscular Hemoglobin Concent 32.6 32.7 Red Cell Distribution Width 12.5 12.3 Platelet Count 396 325 Mean Platelet Volume 9.4 10.4 Immature Granulocytes % 4.200 H 2.900 H Neutrophils % 67.4 67.7 Lymphocytes % 19.2 18.4 Monocytes % 6.7 8.8 Eosinophils % 1.8 1.8 Basophils % 0.7 0.4 Nucleated Red Blood Cells % 0.0 0.0 Immature Granulocytes # 0.580 H 0.430 H Neutrophils # 9.3 H 10.1 H Lymphocytes # 2.7 2.8 Monocytes # 0.9 1.3 H Eosinophils # 0.3 0.3 Basophils # 0.1 0.1 Nucleated Red Blood Cells # 0.0 0.0 Sodium Level 140 138 Potassium Level 3.5 3.3 L Chloride Level 106 106 Carbon Dioxide Level 24 24 Anion Gap 10 8 Blood Urea Nitrogen 7 7 Creatinine 0.78 0.87 Est Glomerular Filtrat Rate mL/min > 60 > 60 Glucose Level 147 78 # Calcium Level 8.6 8.5 Phosphorus Level 2.4 #L 4.4 # Magnesium Level 2.2 2.0 Vancomycin Level Trough 9.0 L Medications Medication Current Medications IV Flush (NS 3 ml) 3 ml PER PROTOCOL IV ; Start 10/20/18 at 14:00 Ondansetron HCl (Zofran Inj) 4 mg Q6H PRN IV NAUSEA/VOMITING; Start 10/20/18 at 14:00 Acetaminophen (Tylenol Tab) 650 mg Q6H PRN PO .PAIN 1-3 OR TEMP; Start 10/20/18 at 14:00 Acetaminophen/ Hydrocodone Bitart ([place] (5/325)) 1 tab Q6H PRN PO .MOD PAIN 4- 6; Start 10/20/18 at 14:00 Docusate Sodium (Colace) 100 mg Q12H PRN PO .CONSTIPATION; Start 10/20/18 at 14:00 Zolpidem Tartrate (Ambien) 5 mg QHS PRN PO .INSOMNIA Last administered on 10/22/18at 03:01; Admin Dose 5 MG; Start 10/20/18 at 14:00 Vancomycin HCl (Vanco Iv Per Pharmacy) VANCOMYCIN PER PHARMACY PER PROTOCOL XX ; Start 10/20/18 at 14:00 Acetaminophen (Tylenol Tab) 650 mg Q6H PRN PO MILD PAIN(1-3)OR ELEVATED TEMP; Start 10/20/18 at 17:30 Ibuprofen (Motrin) 600 mg Q6H PRN PO PAIN LEVEL 6-10; Start 10/20/18 at 17:30 Acetaminophen/ Hydrocodone Bitart ([place] (5/325)) 1 tab Q6H PRN PO PAIN LEVEL 6-10 Last administered on 10/21/18at 06:44; Admin Dose 1 TAB; Start 10/20/18 at 17:30 Ondansetron HCl (Zofran Inj) 4 mg Q6H PRN IV NAUSEA AND/OR VOMITING; Start 10/20/18 at 17:30 Diphenhydramine HCl (Benadryl) 25 mg Q6H PRN IV ITCHING; Start 10/20/18 at 17:30 Methadone HCl (Methadone) 40 mg DAILY PO Last administered on 10/24/18at 09:02; Admin Dose 40 MG; Start 10/21/18 at 12:00 Morphine Sulfate (Ms Contin (Er)) 30 mg BID PO Last administered on 10/24/18at 09:03; Admin Dose 30 MG; Start 10/22/18 at 21:00 Hydromorphone HCl (Dilaudid) 1.5 mg Q4H PRN IV SEVERE PAIN LEVEL 7-10 Last administered on 10/24/18at 09:02; Admin Dose 1.5 MG; Start 10/22/18 at 12:30 Saccharomyces Boulardii (Florastor) 250 mg BID PO Last administered on 10/24/18at 09:02; Admin Dose 250 MG; Start 10/23/18 at 21:00 IV Flush (NS 10 ml) 10 ml PRN PRN IV FLUSH LINE; Start 10/23/18 at 18:30 Vancomycin HCl 250 ml @ 125 mls/hr Q8H IVPB Last administered on 10/24/18at 04:46; Admin Dose 125 MLS/HR; Start 10/24/18 at 05:00 BRIGETTE REYNA NP Oct 24, 2018 10:18
[2018-10-24] MEDS ORDERED: POTASSIUM CHLORIDE (SR) 10 MEQ TAB PO ONE (10:30)
--- NOTE | 2018-10-24 10:53 | CONS ---
Assessment/Plan Assessment/Plan Hospital Course (Demo Recall) All noted, no acute events over night, no fevers Abscess culture grew MRSA, alpha hemolytic and beta-hemolytic strep's, blood cultures grew staph on admission 1 out of 2 sets, repeat blood cultures pending Antimicrobials: Vanco Physical examination: Well-developed middle-aged white man who is alert in no distress. Head atraumatic normocephalic sclera nonicteric neck is supple chest rise symmetrical breath sounds clear heart S1-S2 abdomen soft bowel sounds present extremities with left shoulder wound VAC present erythema markedly improved Assessment: 1. Left shoulder abscess, status post I&D 2. Bacteremia 3. Systemic inflammatory response syndrome with resolving leukocytosis 4. IV drug abuse Plan: Remains stable, 2D echo revealed no vegetations, repeat blood cultures negative, continue vancomycin, wound vac, may be dc'd on oral Clindamycin Consultation Date/Type/Reason Admit Date/Time Oct 20, 2018 at 13:01 Initial Consult Date 10/20/18 Type of Consult id Requesting Provider: JOSEPH ALCANTARA Date/Time of Note DATE: 10/24/18 TIME: 10:51 Exam/Review of Systems Exam Vitals Vital Signs Date Temp Pulse Resp B/P (MAP) Pulse Ox O2 O2 Flow FiO2 Time Delivery Rate 10/24/18 98.2 65 18 122/76 94 Room Air 07:49 (91) Intake and Output 10/23/18 10/23/18 10/24/18 1515:00 23:00 07:00 IntakeIntake Total 850 ml 490 ml 750 ml OutputOutput Total 900 ml 0 ml 700 ml BalanceBalance -50 ml 490 ml 50 ml Results Result Diagram: 10/24/18 0444 10/24/18 0444 Results 24hrs Laboratory Tests Test 10/23/18 17:40 10/23/18 19:58 10/24/18 04:44 White Blood Count 13.8 H 15.0 H Red Blood Count 4.19 L 3.71 L Hemoglobin 11.7 L 10.6 L Hematocrit 35.9 L 32.4 L Mean Corpuscular Volume 85.7 87.3 Mean Corpuscular Hemoglobin 27.9 L 28.6 L Mean Corpuscular Hemoglobin Concent 32.6 32.7 Red Cell Distribution Width 12.5 12.3 Platelet Count 396 325 Mean Platelet Volume 9.4 10.4 Immature Granulocytes % 4.200 H 2.900 H Neutrophils % 67.4 67.7 Lymphocytes % 19.2 18.4 Monocytes % 6.7 8.8 Eosinophils % 1.8 1.8 Basophils % 0.7 0.4 Nucleated Red Blood Cells % 0.0 0.0 Immature Granulocytes # 0.580 H 0.430 H Neutrophils # 9.3 H 10.1 H Lymphocytes # 2.7 2.8 Monocytes # 0.9 1.3 H Eosinophils # 0.3 0.3 Basophils # 0.1 0.1 Nucleated Red Blood Cells # 0.0 0.0 Sodium Level 140 138 Potassium Level 3.5 3.3 L Chloride Level 106 106 Carbon Dioxide Level 24 24 Anion Gap 10 8 Blood Urea Nitrogen 7 7 Creatinine 0.78 0.87 Est Glomerular Filtrat Rate mL/min > 60 > 60 Glucose Level 147 78 # Calcium Level 8.6 8.5 Phosphorus Level 2.4 #L 4.4 # Magnesium Level 2.2 2.0 Vancomycin Level Trough 9.0 L Medications Medication Current Medications IV Flush (NS 3 ml) 3 ml PER PROTOCOL IV ; Start 10/20/18 at 14:00 Ondansetron HCl (Zofran Inj) 4 mg Q6H PRN IV NAUSEA/VOMITING; Start 10/20/18 at 14:00 Acetaminophen (Tylenol Tab) 650 mg Q6H PRN PO .PAIN 1-3 OR TEMP; Start 10/20/18 at 14:00 Acetaminophen/ Hydrocodone Bitart ([place] (5/325)) 1 tab Q6H PRN PO .MOD PAIN 4- 6; Start 10/20/18 at 14:00 Docusate Sodium (Colace) 100 mg Q12H PRN PO .CONSTIPATION; Start 10/20/18 at 14:00 Zolpidem Tartrate (Ambien) 5 mg QHS PRN PO .INSOMNIA Last administered on 04/01at 03:01; Admin Dose 5 MG; Start 10/20/18 at 14:00 Vancomycin HCl (Vanco Iv Per Pharmacy) VANCOMYCIN PER PHARMACY PER PROTOCOL XX ; Start 10/20/18 at 14:00 Acetaminophen (Tylenol Tab) 650 mg Q6H PRN PO MILD PAIN(1-3)OR ELEVATED TEMP; Start 10/20/18 at 17:30 Ibuprofen (Motrin) 600 mg Q6H PRN PO PAIN LEVEL 6-10; Start 10/20/18 at 17:30 Acetaminophen/ Hydrocodone Bitart ([place] (5/325)) 1 tab Q6H PRN PO PAIN LEVEL 6-10 Last administered on 10/21/18at 06:44; Admin Dose 1 TAB; Start 10/20/18 at 17:30 Ondansetron HCl (Zofran Inj) 4 mg Q6H PRN IV NAUSEA AND/OR VOMITING; Start 10/20/18 at 17:30 Diphenhydramine HCl (Benadryl) 25 mg Q6H PRN IV ITCHING; Start 10/20/18 at 17:30 Methadone HCl (Methadone) 40 mg DAILY PO Last administered on 10/24/18 09:02; Admin Dose 40 MG; Start 10/21/18 at 12:00 Morphine Sulfate (Ms Contin (Er)) 30 mg BID PO Last administered on 10/24/18 09:03; Admin Dose 30 MG; Start 10/22/18 at 21:00 Hydromorphone HCl (Dilaudid) 1.5 mg Q4H PRN IV SEVERE PAIN LEVEL 7-10 Last administered on 10/24/18 09:02; Admin Dose 1.5 MG; Start 10/22/18 at 12:30 Saccharomyces Boulardii (Florastor) 250 mg BID PO Last administered on 10/24/18 09:02; Admin Dose 250 MG; Start 10/23/18 at 21:00 IV Flush (NS 10 ml) 10 ml PRN PRN IV FLUSH LINE; Start 10/23/18 at 18:30 Vancomycin HCl 250 ml @ 125 mls/hr Q8H IVPB Last administered on 10/24/18at 04:46; Admin Dose 125 MLS/HR; Start 10/24/18 at 05:00 SUNITA CROWELL NP Oct 24, 2018 10:53
[2018-10-24] MEDS ORDERED: DIPHENOXYLATE/ATROPINE TAB PO ONE (12:30)
[2018-10-24 14:00] VITALS: BP 146/88; PULSE 59; RESP 18
[2018-10-24 20:35] VITALS: BP 136/91; PULSE 62; RESP 19
[2018-10-25 02:30] VITALS: BP 130/84; PULSE 60; RESP 18
[2018-10-25] MEDS: HYDROmorphONE 2 MG/ML SYG IV PRN ×6 (02:44→22:53)
[2018-10-25] MEDS: VANCOMYCIN 1 GM 250 ML IVPB SCH ×2 (04:44→13:00)
[2018-10-25 07:49] VITALS: BP 138/90; PULSE 64; RESP 18
[2018-10-25] MEDS: morphine (ER) 30 MG TAB PO SCH ×2 (09:02→20:28)
[2018-10-25] MEDS: METHADONE 10 MG TAB PO SCH (09:03)
[2018-10-25] MEDS: SACCHAROMYCES BOULARDII 250 MG CAP PO SCH ×2 (09:03→20:28)
--- NOTE | 2018-10-25 10:18 | PN ---
Date/Time of Note Date/Time of Note DATE: 10/25/18 TIME: 10:18 Assessment/Plan VTE Prophylaxis SCD applied (from Nsg): Yes Pharmacological prophylaxis: NA/contraindicated Pharm contraindication: low risk/ambulating Lines/Catheters IV Catheter Type (from Nrsg): PICC Line Central line still needed: Yes Assessment/Plan Hospital Course SUBJECTIVE: Complains of diarrhea. OBJECTIVE: Physical Exam General: Adequately build 28 year-old male lying in bed in no apparent distress. HEENT: Normocephalic, atraumatic. Eyes: Anicteric sclerae, conjunctivae clear. ENT: Nasal septum midline, oral mucosa moist. Neck supple, no JVD noticed. Respiratory: Bilaterally diminished breath sounds. No use of accessory muscles of respiration. No adventitious breath sounds. Cardiovascular: S1, S2 heard. Regular rate and rhythm. Abdomen: Soft, nontender, and nondistended. Bowel sounds positive in all 4 quadrants. PICC line insertion Genitourinary: Deferred. Extremities: No cyanosis, no clubbing, no edema. Peripheral pulses palpable. Left deltoid area surgical incision with wound VAC over it. Neurologic: Cranial nerves II through XII grossly intact. The patient is awake, alert, and oriented. Skin: Normal skin turgor. No skin rashes. Labs & Vitals per chart ASSESSMENT & PLAN 28-year-old male with a prior history of IV drug abuse who has been clean for several months and is on methadone who came to the emergency room with a spontaneously developed left shoulder abscess with evidence of sepsis with leukocytosis, and tachycardia secondary to underlying left arm abscess who was admitted to inpatient setting. 1. Sepsis with leukocytosis and febrile illness secondary to left, abscess, present on admission. Fluid culture growing-beta and alpha-hemolytic Streptococcus along with MRSA. Continue antimicrobials as per ID. 2. Left shoulder abscess. Status post incision and drainage on 10/20/2018. Continue negative pressure. Continue wound care as per general surgery. 3. Normocytic anemia. Most probably anemia chronic disease. Monitor H&H closely. 4. History of heroin abuse. Patient has been clean for the past several months and is on methadone. Continue methadone. 5. Fluids, electrolytes, and nutrition. Regular diet. 6. DVT prophylaxis. Bilateral SCDs. 7. Plan. Continue antimicrobials as per ID. The patient needs wound VAC for approximately 1 to 2 weeks as per the surgeon. Disposition: Home with home health and wound vac on oral ABX once arrangements are made. The patient was seen in collaboration with Dr. Larios. Result Diagram: 10/25/1852 10/25/1852 Results 24hrs Laboratory Tests Test 10/25/18 05:52 White Blood Count 13.1 H Red Blood Count 4.00 L Hemoglobin 11.2 L Hematocrit 34.1 L Mean Corpuscular Volume 85.3 Mean Corpuscular Hemoglobin 28.0 L Mean Corpuscular Hemoglobin Concent 32.8 Red Cell Distribution Width 12.4 Platelet Count 384 Mean Platelet Volume 9.1 Immature Granulocytes % 2.600 H Neutrophils % 68.9 Lymphocytes % 18.3 Monocytes % 7.2 Eosinophils % 2.4 Basophils % 0.6 Nucleated Red Blood Cells % 0.0 Immature Granulocytes # 0.340 H Neutrophils # 9.1 H Lymphocytes # 2.4 Monocytes # 0.9 Eosinophils # 0.3 Basophils # 0.1 Nucleated Red Blood Cells # 0.0 Sodium Level 138 Potassium Level 3.6 Chloride Level 106 Carbon Dioxide Level 25 Anion Gap 7 Blood Urea Nitrogen 7 Creatinine 0.82 Est Glomerular Filtrat Rate mL/min > 60 Glucose Level 80 Calcium Level 8.4 Phosphorus Level 4.7 Magnesium Level 2.2 Exam/Review of Systems Exam Vitals Vital Signs Date Temp Pulse Resp B/P (MAP) Pulse Ox O2 O2 Flow FiO2 Time Delivery Rate 10/25/18 98.1 64 18 138/90 97 Room Air 07:49 (106) Intake and Output 10/24/18 10/24/18 10/25/18 1515:00 23:00 07:00 IntakeIntake Total 490 ml 610 ml 500 ml OutputOutput Total 450 ml 0 ml BalanceBalance 40 ml 610 ml 500 ml Results Results 24hrs Laboratory Tests Test 10/25/18 05:52 White Blood Count 13.1 H Red Blood Count 4.00 L Hemoglobin 11.2 L Hematocrit 34.1 L Mean Corpuscular Volume 85.3 Mean Corpuscular Hemoglobin 28.0 L Mean Corpuscular Hemoglobin Concent 32.8 Red Cell Distribution Width 12.4 Platelet Count 384 Mean Platelet Volume 9.1 Immature Granulocytes % 2.600 H Neutrophils % 68.9 Lymphocytes % 18.3 Monocytes % 7.2 Eosinophils % 2.4 Basophils % 0.6 Nucleated Red Blood Cells % 0.0 Immature Granulocytes # 0.340 H Neutrophils # 9.1 H Lymphocytes # 2.4 Monocytes # 0.9 Eosinophils # 0.3 Basophils # 0.1 Nucleated Red Blood Cells # 0.0 Sodium Level 138 Potassium Level 3.6 Chloride Level 106 Carbon Dioxide Level 25 Anion Gap 7 Blood Urea Nitrogen 7 Creatinine 0.82 Est Glomerular Filtrat Rate mL/min > 60 Glucose Level 80 Calcium Level 8.4 Phosphorus Level 4.7 Magnesium Level 2.2 Medications Medication Current Medications IV Flush (NS 3 ml) 3 ml PER PROTOCOL IV ; Start 10/20/18 at 14:00 Acetaminophen (Tylenol Tab) 650 mg Q6H PRN PO .PAIN 1-3 OR TEMP Last administered on 10/24/18at 19:39; Admin Dose 650 MG; Start 10/20/18 at 14:00 Acetaminophen/ Hydrocodone Bitart ([place] (5/325)) 1 tab Q6H PRN PO .MOD PAIN 4- 6; Start 10/20/18 at 14:00 Docusate Sodium (Colace) 100 mg Q12H PRN PO .CONSTIPATION; Start 10/20/18 at 14:00 Zolpidem Tartrate (Ambien) 5 mg QHS PRN PO .INSOMNIA Last administered on 10/22/18at 03:01; Admin Dose 5 MG; Start 10/20/18 at 14:00 Vancomycin HCl (Vanco Iv Per Pharmacy) VANCOMYCIN PER PHARMACY PER PROTOCOL XX ; Start 10/20/18 at 14:00 Acetaminophen (Tylenol Tab) 650 mg Q6H PRN PO MILD PAIN(1-3)OR ELEVATED TEMP; Start 10/20/18 at 17:30 Ibuprofen (Motrin) 600 mg Q6H PRN PO PAIN LEVEL 6-10; Start 10/20/18 at 17:30 Acetaminophen/ Hydrocodone Bitart ([place] (5/325)) 1 tab Q6H PRN PO PAIN LEVEL 6-10 Last administered on 10/21/18at 06:44; Admin Dose 1 TAB; Start 10/20/18 at 17:30 Ondansetron HCl (Zofran Inj) 4 mg Q6H PRN IV NAUSEA AND/OR VOMITING; Start 10/20/18 at 17:30 Diphenhydramine HCl (Benadryl) 25 mg Q6H PRN IV ITCHING; Start 10/20/18 at 17:30 Methadone HCl (Methadone) 40 mg DAILY PO Last administered on 10/25/18 09:03; Admin Dose 40 MG; Start 10/21/18 at 12:00 Morphine Sulfate (Ms Contin (Er)) 30 mg BID PO Last administered on 10/25/18 09:02; Admin Dose 30 MG; Start 10/22/18 at 21:00 Hydromorphone HCl (Dilaudid) 1.5 mg Q4H PRN IV SEVERE PAIN LEVEL 7-10 Last administered on 10/25/18 06:44; Admin Dose 1.5 MG; Start 10/22/18 at 12:30 Saccharomyces Boulardii (Florastor) 250 mg BID PO Last administered on 10/25/18 09:03; Admin Dose 250 MG; Start 10/23/18 at 21:00 IV Flush (NS 10 ml) 10 ml PRN PRN IV FLUSH LINE; Start 10/23/18 at 18:30 Vancomycin HCl 250 ml @ 125 mls/hr Q8H IVPB Last administered on 10/25/18at 04:44; Admin Dose 125 MLS/HR; Start 10/24/18 at 05:00 Miscellaneous Information (*Rx Drug Level Order Reminder*) VANCO TROUGH ON 10/12... 1200 ONCE XX ; Start 10/25/18 at 12:00; Stop 10/25/18 at 12:01 BRIGETTE REYNA NP Oct 25, 2018 10:18
--- NOTE | 2018-10-25 11:55 | CONS ---
Assessment/Plan Assessment/Plan Hospital Course (Demo Recall) No changes Abscess culture grew MRSA, alpha hemolytic and beta-hemolytic strep's, blood cultures grew staph on admission 1 out of 2 sets, repeat blood cultures pending Antimicrobials: Vanco Physical examination: Well-developed middle-aged white man who is alert in no distress. Head atraumatic normocephalic sclera nonicteric neck is supple chest rise symmetrical breath sounds clear heart S1-S2 abdomen soft bowel sounds present extremities with left shoulder wound VAC present erythema markedly improved Assessment: 1. Left shoulder abscess, status post I&D 2. Bacteremia 3. Systemic inflammatory response syndrome with resolving leukocytosis 4. IV drug abuse Plan: Remains stable, 2D echo revealed no vegetations, repeat blood cultures negative, wbc trending down, continue vancomycin, wound vac, may be dc'd on oral Clindamycin Consultation Date/Type/Reason Admit Date/Time Oct 20, 2018 at 13:01 Initial Consult Date 10/20/18 Type of Consult id Requesting Provider: JOSEPH ALCANTARA Date/Time of Note DATE: 10/25/18 TIME: 11:54 Exam/Review of Systems Exam Vitals Vital Signs Date Temp Pulse Resp B/P (MAP) Pulse Ox O2 O2 Flow FiO2 Time Delivery Rate 10/25/18 98.1 64 18 138/90 97 Room Air 07:49 (106) Intake and Output 10/24/18 10/24/18 10/25/18 1515:00 23:00 07:00 IntakeIntake Total 490 ml 610 ml 500 ml OutputOutput Total 450 ml 0 ml BalanceBalance 40 ml 610 ml 500 ml Results Result Diagram: 10/25/18 0552 10/25/18 0552 Results 24hrs Laboratory Tests Test 10/25/18 05:52 White Blood Count 13.1 H Red Blood Count 4.00 L Hemoglobin 11.2 L Hematocrit 34.1 L Mean Corpuscular Volume 85.3 Mean Corpuscular Hemoglobin 28.0 L Mean Corpuscular Hemoglobin Concent 32.8 Red Cell Distribution Width 12.4 Platelet Count 384 Mean Platelet Volume 9.1 Immature Granulocytes % 2.600 H Neutrophils % 68.9 Lymphocytes % 18.3 Monocytes % 7.2 Eosinophils % 2.4 Basophils % 0.6 Nucleated Red Blood Cells % 0.0 Immature Granulocytes # 0.340 H Neutrophils # 9.1 H Lymphocytes # 2.4 Monocytes # 0.9 Eosinophils # 0.3 Basophils # 0.1 Nucleated Red Blood Cells # 0.0 Sodium Level 138 Potassium Level 3.6 Chloride Level 106 Carbon Dioxide Level 25 Anion Gap 7 Blood Urea Nitrogen 7 Creatinine 0.82 Est Glomerular Filtrat Rate mL/min > 60 Glucose Level 80 Calcium Level 8.4 Phosphorus Level 4.7 Magnesium Level 2.2 Medications Medication Current Medications IV Flush (NS 3 ml) 3 ml PER PROTOCOL IV ; Start 10/20/18 at 14:00 Acetaminophen (Tylenol Tab) 650 mg Q6H PRN PO .PAIN 1-3 OR TEMP Last administered on 10/24/18at 19:39; Admin Dose 650 MG; Start 10/20/18 at 14:00 Acetaminophen/ Hydrocodone Bitart ([place] (5/325)) 1 tab Q6H PRN PO .MOD PAIN 4- 6; Start 10/20/18 at 14:00 Docusate Sodium (Colace) 100 mg Q12H PRN PO .CONSTIPATION; Start 10/20/18 at 14:00 Zolpidem Tartrate (Ambien) 5 mg QHS PRN PO .INSOMNIA Last administered on 10/12 06/01at 03:01; Admin Dose 5 MG; Start 10/20/18 at 14:00 Vancomycin HCl (Vanco Iv Per Pharmacy) VANCOMYCIN PER PHARMACY PER PROTOCOL XX ; Start 10/20/18 at 14:00 Acetaminophen (Tylenol Tab) 650 mg Q6H PRN PO MILD PAIN(1-3)OR ELEVATED TEMP; Start 10/20/18 at 17:30 Ibuprofen (Motrin) 600 mg Q6H PRN PO PAIN LEVEL 6-10; Start 10/20/18 at 17:30 Acetaminophen/ Hydrocodone Bitart ([place] (5/325)) 1 tab Q6H PRN PO PAIN LEVEL 6-10 Last administered on 10/21/18at 06:44; Admin Dose 1 TAB; Start 10/20/18 at 17:30 Ondansetron HCl (Zofran Inj) 4 mg Q6H PRN IV NAUSEA AND/OR VOMITING; Start 10/20/18 at 17:30 Diphenhydramine HCl (Benadryl) 25 mg Q6H PRN IV ITCHING; Start 10/20/18 at 17:30 Methadone HCl (Methadone) 40 mg DAILY PO Last administered on 10/25/18 09:03; Admin Dose 40 MG; Start 10/21/18 at 12:00 Morphine Sulfate (Ms Contin (Er)) 30 mg BID PO Last administered on 10/25/18 09:02; Admin Dose 30 MG; Start 10/22/18 at 21:00 Hydromorphone HCl (Dilaudid) 1.5 mg Q4H PRN IV SEVERE PAIN LEVEL 7-10 Last administered on 10/25/18 10:51; Admin Dose 1.5 MG; Start 10/22/18 at 12:30 Saccharomyces Boulardii (Florastor) 250 mg BID PO Last administered on 10/25/18 09:03; Admin Dose 250 MG; Start 10/23/18 at 21:00 IV Flush (NS 10 ml) 10 ml PRN PRN IV FLUSH LINE; Start 10/23/18 at 18:30 Vancomycin HCl 250 ml @ 125 mls/hr Q8H IVPB Last administered on 10/25/18 04:44; Admin Dose 125 MLS/HR; Start 10/24/18 at 05:00 Miscellaneous Information (*Rx Drug Level Order Reminder*) VANCO TROUGH ON 10/12... 1200 ONCE XX ; Start 10/25/18 at 12:00; Stop 10/25/18 at 12:01 SUNITA CROWELL NP Oct 25, 2018 11:55
[2018-10-25 14:44] VITALS: BP 147/89; PULSE 80; RESP 18
[2018-10-25 20:05] VITALS: BP 161/86; PULSE 59; RESP 18
[2018-10-25] MEDS: VANCOMYCIN HCL 1.5 GM in SOD CHLORIDE 0.9% 250 ML IVPB SCH (20:27)
[2018-10-26] MEDS: HYDROCODONE/APAP (5/325) TAB PO PRN ×2 (01:51→15:07)
[2018-10-26 01:56] VITALS: BP 149/98; PULSE 72; RESP 18
[2018-10-26] MEDS: HYDROmorphONE 2 MG/ML SYG IV PRN ×5 (02:53→19:59)
[2018-10-26 07:31] VITALS: BP 137/87; PULSE 61; RESP 16
[2018-10-26] MEDS: VANCOMYCIN HCL 1.5 GM in SOD CHLORIDE 0.9% 250 ML IVPB SCH ×2 (08:47→19:58)
[2018-10-26] MEDS: SACCHAROMYCES BOULARDII 250 MG CAP PO SCH ×2 (08:47→20:59)
[2018-10-26] MEDS: METHADONE 10 MG TAB PO SCH (08:48)
[2018-10-26] MEDS: morphine (ER) 30 MG TAB PO SCH ×2 (08:48→21:00)
--- NOTE | 2018-10-26 11:15 | PN ---
Date/Time of Note Date/Time of Note DATE: 10/26/18 TIME: 11:15 Assessment/Plan VTE Prophylaxis SCD applied (from Nsg): Yes Pharmacological prophylaxis: NA/contraindicated Pharm contraindication: low risk/ambulating Lines/Catheters IV Catheter Type (from Nrsg): PICC Line Central line still needed: Yes Urinary Cath still in place: No Assessment/Plan Hospital Course SUBJECTIVE: Diarrhea improved. OBJECTIVE: Physical Exam General: Adequately build 28 year-old male lying in bed in no apparent distress. HEENT: Normocephalic, atraumatic. Eyes: Anicteric sclerae, conjunctivae clear. ENT: Nasal septum midline, oral mucosa moist. Neck supple, no JVD noticed. Respiratory: Bilaterally diminished breath sounds. No use of accessory muscles of respiration. No adventitious breath sounds. Cardiovascular: S1, S2 heard. Regular rate and rhythm. Abdomen: Soft, nontender, and nondistended. Bowel sounds positive in all 4 quadrants. PICC line insertion Genitourinary: Deferred. Extremities: No cyanosis, no clubbing, no edema. Peripheral pulses palpable. Left deltoid area surgical incision with wound VAC over it. Neurologic: Cranial nerves II through XII grossly intact. The patient is awake, alert, and oriented. Skin: Normal skin turgor. No skin rashes. Labs & Vitals per chart ASSESSMENT & PLAN 28-year-old male with a prior history of IV drug abuse who has been clean for several months and is on methadone who came to the emergency room with a spontaneously developed left shoulder abscess with evidence of sepsis with leukocytosis, and tachycardia secondary to underlying left arm abscess who was admitted to inpatient setting. 1. Sepsis with leukocytosis and febrile illness secondary to left, abscess, present on admission. Fluid culture growing-beta and alpha-hemolytic Streptococcus along with MRSA. Continue antimicrobials as per ID. 2. Left shoulder abscess. Status post incision and drainage on 10/20/2018. Continue negative pressure. Continue wound care as per general surgery. 3. Normocytic anemia. Most probably anemia chronic disease. Monitor H&H closely. 4. History of heroin abuse. Patient has been clean for the past several months and is on methadone. Continue methadone. 5. Fluids, electrolytes, and nutrition. Regular diet. 6. DVT prophylaxis. Bilateral SCDs. 7. Plan. Continue antimicrobials as per ID. The patient needs wound VAC for approximately 1 to 2 weeks as per the surgeon. Disposition: Home with home health and wound vac on oral ABX once arrangements are made. The patient was seen in collaboration with Dr. Larios. Result Diagram: 10/25/18 0552 10/25/18 0552 Results 24hrs Laboratory Tests Test 10/25/18 11:41 Vancomycin Level Trough 19.0 Exam/Review of Systems Exam Vitals Vital Signs Date Temp Pulse Resp B/P (MAP) Pulse Ox O2 O2 Flow FiO2 Time Delivery Rate 10/26/18 98.2 61 16 137/87 96 07:31 (104) 10/25/18 Room Air 14:44 Intake and Output 10/25/18 10/25/18 10/26/18 1515:00 23:00 07:00 IntakeIntake Total 640 ml 460 ml 450 ml OutputOutput Total 400 ml BalanceBalance 640 ml 60 ml 450 ml Results Results 24hrs Laboratory Tests Test 10/25/18 11:41 Vancomycin Level Trough 19.0 Medications Medication Current Medications IV Flush (NS 3 ml) 3 ml PER PROTOCOL IV ; Start 10/20/18 at 14:00 Acetaminophen (Tylenol Tab) 650 mg Q6H PRN PO .PAIN 1-3 OR TEMP Last administered on 10/24/18at 19:39; Admin Dose 650 MG; Start 10/20/18 at 14:00 Acetaminophen/ Hydrocodone Bitart ([place] (5/325)) 1 tab Q6H PRN PO .MOD PAIN 4- 6; Start 10/20/18 at 14:00 Docusate Sodium (Colace) 100 mg Q12H PRN PO .CONSTIPATION; Start 10/20/18 at 14:00 Zolpidem Tartrate (Ambien) 5 mg QHS PRN PO .INSOMNIA Last administered on 10/22/18at 03:01; Admin Dose 5 MG; Start 10/20/18 at 14:00 Vancomycin HCl (Vanco Iv Per Pharmacy) VANCOMYCIN PER PHARMACY PER PROTOCOL XX ; Start 10/20/18 at 14:00 Acetaminophen (Tylenol Tab) 650 mg Q6H PRN PO MILD PAIN(1-3)OR ELEVATED TEMP; Start 10/20/18 at 17:30 Ibuprofen (Motrin) 600 mg Q6H PRN PO PAIN LEVEL 6-10 Last administered on 10/25/18at 15:36; Admin Dose 600 MG; Start 10/20/18 at 17:30 Acetaminophen/ Hydrocodone Bitart ([place] (5/325)) 1 tab Q6H PRN PO PAIN LEVEL 6-10 Last administered on 10/26/18 01:51; Admin Dose 1 TAB; Start 10/20/18 at 17:30 Ondansetron HCl (Zofran Inj) 4 mg Q6H PRN IV NAUSEA AND/OR VOMITING; Start 10/20/18 at 17:30 Diphenhydramine HCl (Benadryl) 25 mg Q6H PRN IV ITCHING; Start 10/20/18 at 17:30 Methadone HCl (Methadone) 40 mg DAILY PO Last administered on 10/26/18 08:48; Admin Dose 40 MG; Start 10/21/18 at 12:00 Morphine Sulfate (Ms Contin (Er)) 30 mg BID PO Last administered on 10/26/18 08:48; Admin Dose 30 MG; Start 10/22/18 at 21:00 Hydromorphone HCl (Dilaudid) 1.5 mg Q4H PRN IV SEVERE PAIN LEVEL 7-10 Last administered on 10/26/18 06:43; Admin Dose 1.5 MG; Start 10/22/18 at 12:30 Saccharomyces Boulardii (Florastor) 250 mg BID PO Last administered on 10/26/18 08:47; Admin Dose 250 MG; Start 10/23/18 at 21:00 IV Flush (NS 10 ml) 10 ml PRN PRN IV FLUSH LINE; Start 10/23/18 at 18:30 Vancomycin HCl 1.5 gm/Sodium Chloride 250 ml @ 83.333 mls/ hr Q12H IVPB Last administered on 10/26/18 08:47; Admin Dose 83.333 MLS/HR; Start 10/25/18 at 20:00 BRIGETTE REYNA NP Oct 26, 2018 11:15
[2018-10-26 14:49] VITALS: BP 156/103; PULSE 82; RESP 19
--- NOTE | 2018-10-26 15:22 | CONS ---
Consultation Date/Type/Reason Admit Date/Time Oct 20, 2018 at 13:01 Initial Consult Date 10/20/18 Type of Consult SUBJECTIVE: Pt is sleepy, resting in bed, looks comfortable. No fevers. VS: stable T: 98.2 LABS: Reviewed MICROBIOLOGY: Abscess culture grew MRSA, alpha hemolytic and beta-hemolytic strep's, blood cultures grew staph on admission 1 out of 2 sets, repeat blood cultures pending 2D echo revealed no vegetations Antimicrobials: Vanco Physical examination: GEN: Well-developed middle-aged white man who is alert in no distress. HENT: Head atraumatic normocephalic sclera nonicteric; neck is supple PULM: chest rise symmetrical breath sounds clear Heart: S1-S2 Abdomen: soft, bowel sounds present Extremities with left shoulder wound VAC present erythema markedly improved Assessment: 1. Left shoulder abscess, status post I&D 2. Bacteremia 3. Systemic inflammatory response syndrome with resolving leukocytosis 4. IV drug abuse Plan: Pt remains stable. Continue current antbx and wound care with wound vac. May be dc'd on oral Clindamycin Requesting Provider: JOSEPH ALCANTARA Date/Time of Note DATE: 10/26/18 TIME: 15:17 Exam/Review of Systems Exam Vitals Vital Signs Date Temp Pulse Resp B/P (MAP) Pulse Ox O2 O2 Flow FiO2 Time Delivery Rate 10/26/18 98.2 82 19 156/103 97 Room Air 14:49 (120) Intake and Output 10/25/18 10/25/18 10/26/18 1515:00 23:00 07:00 IntakeIntake Total 640 ml 460 ml 450 ml OutputOutput Total 400 ml BalanceBalance 640 ml 60 ml 450 ml Results Result Diagram: 10/25/18 0552 10/25/18 0552 Medications Medication Current Medications IV Flush (NS 3 ml) 3 ml PER PROTOCOL IV ; Start 10/20/18 at 14:00 Acetaminophen (Tylenol Tab) 650 mg Q6H PRN PO .PAIN 1-3 OR TEMP Last administered on 10/24/18at 19:39; Admin Dose 650 MG; Start 10/20/18 at 14:00 Acetaminophen/ Hydrocodone Bitart ([place] (5/325)) 1 tab Q6H PRN PO .MOD PAIN 4- 6; Start 10/20/18 at 14:00 Docusate Sodium (Colace) 100 mg Q12H PRN PO .CONSTIPATION; Start 10/20/18 at 14:00 Zolpidem Tartrate (Ambien) 5 mg QHS PRN PO .INSOMNIA Last administered on 10/22/18at 03:01; Admin Dose 5 MG; Start 10/20/18 at 14:00 Vancomycin HCl (Vanco Iv Per Pharmacy) VANCOMYCIN PER PHARMACY PER PROTOCOL XX ; Start 10/20/18 at 14:00 Acetaminophen (Tylenol Tab) 650 mg Q6H PRN PO MILD PAIN(1-3)OR ELEVATED TEMP; Start 10/20/18 at 17:30 Ibuprofen (Motrin) 600 mg Q6H PRN PO PAIN LEVEL 6-10 Last administered on 10/25/18at 15:36; Admin Dose 600 MG; Start 10/20/18 at 17:30 Acetaminophen/ Hydrocodone Bitart ([place] (5/325)) 1 tab Q6H PRN PO PAIN LEVEL 6-10 Last administered on 10/26/18at 15:07; Admin Dose 1 TAB; Start 10/20/18 at 17:30 Ondansetron HCl (Zofran Inj) 4 mg Q6H PRN IV NAUSEA AND/OR VOMITING; Start 10/20/18 at 17:30 Diphenhydramine HCl (Benadryl) 25 mg Q6H PRN IV ITCHING; Start 10/20/18 at 17:30 Methadone HCl (Methadone) 40 mg DAILY PO Last administered on 10/26/18at 08:48; Admin Dose 40 MG; Start 10/21/18 at 12:00 Morphine Sulfate (Ms Contin (Er)) 30 mg BID PO Last administered on 10/26/18at 08:48; Admin Dose 30 MG; Start 10/22/18 at 21:00 Hydromorphone HCl (Dilaudid) 1.5 mg Q4H PRN IV SEVERE PAIN LEVEL 7-10 Last administered on 10/26/18at 12:04; Admin Dose 1.5 MG; Start 10/22/18 at 12:30 Saccharomyces Boulardii (Florastor) 250 mg BID PO Last administered on 10/26/18at 08:47; Admin Dose 250 MG; Start 10/23/18 at 21:00 IV Flush (NS 10 ml) 10 ml PRN PRN IV FLUSH LINE; Start 10/23/18 at 18:30 Vancomycin HCl 1.5 gm/Sodium Chloride 250 ml @ 83.333 mls/ hr Q12H IVPB Last administered on 10/26/18at 08:47; Admin Dose 83.333 MLS/HR; Start 10/25/18 at 20:00 GORDON LUZ Oct 26, 2018 15:22
[2018-10-26 19:47] VITALS: BP 132/83; PULSE 75; RESP 18
[2018-10-27] MEDS: HYDROmorphONE 2 MG/ML SYG IV PRN ×6 (00:22→20:39)
[2018-10-27 01:37] VITALS: BP 108/69; PULSE 71; RESP 18
[2018-10-27 07:16] VITALS: BP 114/68; PULSE 75; RESP 18
[2018-10-27] MEDS: VANCOMYCIN HCL 1.5 GM in SOD CHLORIDE 0.9% 250 ML IVPB SCH ×2 (08:22→21:05)
[2018-10-27] MEDS: SACCHAROMYCES BOULARDII 250 MG CAP PO SCH ×2 (09:24→20:38)
[2018-10-27] MEDS: morphine (ER) 30 MG TAB PO SCH ×2 (09:25→21:13)
[2018-10-27] MEDS: METHADONE 10 MG TAB PO SCH (09:25)
--- NOTE | 2018-10-27 09:55 | PN ---
Date/Time of Note Date/Time of Note DATE: 10/27/18 TIME: 09:55 Assessment/Plan VTE Prophylaxis SCD applied (from Nsg): Yes Pharmacological prophylaxis: NA/contraindicated Pharm contraindication: low risk/ambulating Lines/Catheters IV Catheter Type (from Nrsg): PICC Line Central line still needed: Yes Urinary Cath still in place: No Assessment/Plan Hospital Course SUBJECTIVE: Diarrhea improved. OBJECTIVE: Physical Exam General: Adequately build 28 year-old male lying in bed in no apparent distress. HEENT: Normocephalic, atraumatic. Eyes: Anicteric sclerae, conjunctivae clear. ENT: Nasal septum midline, oral mucosa moist. Neck supple, no JVD noticed. Respiratory: Bilaterally diminished breath sounds. No use of accessory muscles of respiration. No adventitious breath sounds. Cardiovascular: S1, S2 heard. Regular rate and rhythm. Abdomen: Soft, nontender, and nondistended. Bowel sounds positive in all 4 quadrants. PICC line insertion Genitourinary: Deferred. Extremities: No cyanosis, no clubbing, no edema. Peripheral pulses palpable. Left deltoid area surgical incision with wound VAC over it. Neurologic: Cranial nerves II through XII grossly intact. The patient is awake, alert, and oriented. Skin: Normal skin turgor. No skin rashes. Labs & Vitals per chart ASSESSMENT & PLAN 28-year-old male with a prior history of IV drug abuse who has been clean for several months and is on methadone who came to the emergency room with a spontaneously developed left shoulder abscess with evidence of sepsis with leukocytosis, and tachycardia secondary to underlying left arm abscess who was admitted to inpatient setting. 1. Sepsis with leukocytosis and febrile illness secondary to left, abscess, present on admission. Fluid culture growing-beta and alpha-hemolytic Streptococcus along with MRSA. Continue antimicrobials as per ID. 2. Left shoulder abscess. Status post incision and drainage on 10/20/2018. Continue negative pressure. Continue wound care as per general surgery. 3. Normocytic anemia. Most probably anemia chronic disease. Monitor H&H closely. 4. History of heroin abuse. Patient has been clean for the past several months and is on methadone. Continue methadone. 5. Fluids, electrolytes, and nutrition. Regular diet. 6. DVT prophylaxis. Bilateral SCDs. 7. Plan. Continue antimicrobials as per ID. The patient needs wound VAC for approximately 1 to 2 weeks as per the surgeon. Disposition: Home with home health and wound vac on oral ABX once arrangements are made. The patient was seen in collaboration with Dr. Larios. Result Diagram: 10/27/1844610/27/18446 Results 24hrs Laboratory Tests Test 10/27/18 04:47 White Blood Count 9.2 # Red Blood Count 4.31 L Hemoglobin 12.3 L Hematocrit 38.0 L Mean Corpuscular Volume 88.2 Mean Corpuscular Hemoglobin 28.5 L Mean Corpuscular Hemoglobin Concent 32.4 Red Cell Distribution Width 12.9 Platelet Count 301 # Mean Platelet Volume 9.8 Immature Granulocytes % 3.700 H Neutrophils % 53.2 Lymphocytes % 28.1 Monocytes % 9.8 Eosinophils % 4.3 Basophils % 0.9 Nucleated Red Blood Cells % 0.0 Immature Granulocytes # 0.340 H Neutrophils # 4.9 Lymphocytes # 2.6 Monocytes # 0.9 Eosinophils # 0.4 Basophils # 0.1 Nucleated Red Blood Cells # 0.0 Sodium Level 139 Potassium Level 4.0 Chloride Level 106 Carbon Dioxide Level 28 Anion Gap 5 Blood Urea Nitrogen 9 Creatinine 0.90 Est Glomerular Filtrat Rate mL/min > 60 Glucose Level 81 Calcium Level 8.7 Phosphorus Level 4.8 Magnesium Level 2.5 Exam/Review of Systems Exam Vitals Vital Signs Date Temp Pulse Resp B/P (MAP) Pulse Ox O2 O2 Flow FiO2 Time Delivery Rate 10/27/18 98.8 75 18 114/68 95 Room Air 07:16 (83) Intake and Output 10/26/18 10/26/18 10/27/18 1515:00 23:00 07:00 IntakeIntake Total 830 ml 440 ml OutputOutput Total 10 ml 800 ml BalanceBalance 830 ml 430 ml -800 ml Results Results 24hrs Laboratory Tests Test 10/27/18 04:47 White Blood Count 9.2 # Red Blood Count 4.31 L Hemoglobin 12.3 L Hematocrit 38.0 L Mean Corpuscular Volume 88.2 Mean Corpuscular Hemoglobin 28.5 L Mean Corpuscular Hemoglobin Concent 32.4 Red Cell Distribution Width 12.9 Platelet Count 301 # Mean Platelet Volume 9.8 Immature Granulocytes % 3.700 H Neutrophils % 53.2 Lymphocytes % 28.1 Monocytes % 9.8 Eosinophils % 4.3 Basophils % 0.9 Nucleated Red Blood Cells % 0.0 Immature Granulocytes # 0.340 H Neutrophils # 4.9 Lymphocytes # 2.6 Monocytes # 0.9 Eosinophils # 0.4 Basophils # 0.1 Nucleated Red Blood Cells # 0.0 Sodium Level 139 Potassium Level 4.0 Chloride Level 106 Carbon Dioxide Level 28 Anion Gap 5 Blood Urea Nitrogen 9 Creatinine 0.90 Est Glomerular Filtrat Rate mL/min > 60 Glucose Level 81 Calcium Level 8.7 Phosphorus Level 4.8 Magnesium Level 2.5 Medications Medication Current Medications IV Flush (NS 3 ml) 3 ml PER PROTOCOL IV ; Start 10/20/18 at 14:00 Acetaminophen (Tylenol Tab) 650 mg Q6H PRN PO .PAIN 1-3 OR TEMP Last administered on 10/24/18at 19:39; Admin Dose 650 MG; Start 10/20/18 at 14:00 Acetaminophen/ Hydrocodone Bitart ([place] (5/325)) 1 tab Q6H PRN PO .MOD PAIN 4- 6; Start 10/20/18 at 14:00 Docusate Sodium (Colace) 100 mg Q12H PRN PO .CONSTIPATION; Start 10/20/18 at 14:00 Zolpidem Tartrate (Ambien) 5 mg QHS PRN PO .INSOMNIA Last administered on 10/22/18at 03:01; Admin Dose 5 MG; Start 10/20/18 at 14:00 Vancomycin HCl (Vanco Iv Per Pharmacy) VANCOMYCIN PER PHARMACY PER PROTOCOL XX ; Start 10/20/18 at 14:00 Acetaminophen (Tylenol Tab) 650 mg Q6H PRN PO MILD PAIN(1-3)OR ELEVATED TEMP; Start 10/20/18 at 17:30 Ibuprofen (Motrin) 600 mg Q6H PRN PO PAIN LEVEL 6-10 Last administered on 10/25/18at 15:36; Admin Dose 600 MG; Start 10/20/18 at 17:30 Acetaminophen/ Hydrocodone Bitart ([place] (5/325)) 1 tab Q6H PRN PO PAIN LEVEL 6-10 Last administered on 10/26/18at 15:07; Admin Dose 1 TAB; Start 10/20/18 at 17:30 Ondansetron HCl (Zofran Inj) 4 mg Q6H PRN IV NAUSEA AND/OR VOMITING; Start 10/20/18 at 17:30 Diphenhydramine HCl (Benadryl) 25 mg Q6H PRN IV ITCHING; Start 10/20/18 at 17:30 Methadone HCl (Methadone) 40 mg DAILY PO Last administered on 10/27/18 09:25; Admin Dose 40 MG; Start 10/21/18 at 12:00 Morphine Sulfate (Ms Contin (Er)) 30 mg BID PO Last administered on 10/27/18 09:25; Admin Dose 30 MG; Start 10/22/18 at 21:00 Hydromorphone HCl (Dilaudid) 1.5 mg Q4H PRN IV SEVERE PAIN LEVEL 7-10 Last administered on 10/27/18 08:22; Admin Dose 1.5 MG; Start 10/22/18 at 12:30 Saccharomyces Boulardii (Florastor) 250 mg BID PO Last administered on 10/27/18 09:24; Admin Dose 250 MG; Start 10/23/18 at 21:00 IV Flush (NS 10 ml) 10 ml PRN PRN IV FLUSH LINE; Start 10/23/18 at 18:30 Vancomycin HCl 1.5 gm/Sodium Chloride 250 ml @ 83.333 mls/ hr Q12H IVPB Last administered on 10/27/18 08:22; Admin Dose 83.333 MLS/HR; Start 10/25/18 at 20:00 BRIGETTE REYNA NP Oct 27, 2018 09:55
[2018-10-27 14:40] VITALS: BP 113/71; PULSE 66; RESP 18
--- NOTE | 2018-10-27 15:16 | CONS ---
Consultation Date/Type/Reason Admit Date/Time Oct 20, 2018 at 13:01 Initial Consult Date 10/20/18 Type of Consult SUBJECTIVE: Pt is awake, resting in bed, no fevers. VS: stable T: 98.3 LABS: Reviewed. WBC- 9.2 MICROBIOLOGY: Abscess culture grew MRSA, alpha hemolytic and beta-hemolytic strep's, blood cultures grew staph on admission 1 out of 2 sets, repeat blood cultures pending 2D echo revealed no vegetations Antimicrobials: Vanco Physical examination: GEN: Well-developed middle-aged white man who is alert in no distress. HENT: Head atraumatic normocephalic sclera nonicteric; neck is supple PULM: chest rise symmetrical breath sounds clear Heart: S1-S2 Abdomen: soft, bowel sounds present Extremities with left shoulder wound VAC present erythema markedly improved Assessment: 1. Left shoulder abscess, status post I&D 2. Bacteremia 3. Systemic inflammatory response syndrome with resolving leukocytosis 4. IV drug abuse Plan: Pt remains stable. Continue current antbx and wound care with wound vac. May be dc'd on oral Clindamycin Requesting Provider: JOSEPH ALCANTARA Date/Time of Note DATE: 10/27/18 TIME: 15:15 Exam/Review of Systems Exam Vitals Vital Signs Date Temp Pulse Resp B/P (MAP) Pulse Ox O2 O2 Flow FiO2 Time Delivery Rate 10/27/18 98.3 66 18 113/71 97 Room Air 14:40 (85) Intake and Output 10/26/18 10/26/18 10/27/18 1515:00 23:00 07:00 IntakeIntake Total 830 ml 440 ml OutputOutput Total 10 ml 800 ml BalanceBalance 830 ml 430 ml -800 ml Results Result Diagram: 10/27/18 0447 10/27/18 0447 Results 24hrs Laboratory Tests Test 10/27/18 04:47 White Blood Count 9.2 # Red Blood Count 4.31 L Hemoglobin 12.3 L Hematocrit 38.0 L Mean Corpuscular Volume 88.2 Mean Corpuscular Hemoglobin 28.5 L Mean Corpuscular Hemoglobin Concent 32.4 Red Cell Distribution Width 12.9 Platelet Count 301 # Mean Platelet Volume 9.8 Immature Granulocytes % 3.700 H Neutrophils % 53.2 Lymphocytes % 28.1 Monocytes % 9.8 Eosinophils % 4.3 Basophils % 0.9 Nucleated Red Blood Cells % 0.0 Immature Granulocytes # 0.340 H Neutrophils # 4.9 Lymphocytes # 2.6 Monocytes # 0.9 Eosinophils # 0.4 Basophils # 0.1 Nucleated Red Blood Cells # 0.0 Sodium Level 139 Potassium Level 4.0 Chloride Level 106 Carbon Dioxide Level 28 Anion Gap 5 Blood Urea Nitrogen 9 Creatinine 0.90 Est Glomerular Filtrat Rate mL/min > 60 Glucose Level 81 Calcium Level 8.7 Phosphorus Level 4.8 Magnesium Level 2.5 Medications Medication Current Medications IV Flush (NS 3 ml) 3 ml PER PROTOCOL IV ; Start 10/20/18 at 14:00 Acetaminophen (Tylenol Tab) 650 mg Q6H PRN PO .PAIN 1-3 OR TEMP Last administered on 10/24/18at 19:39; Admin Dose 650 MG; Start 10/20/18 at 14:00 Acetaminophen/ Hydrocodone Bitart ([place] (5/325)) 1 tab Q6H PRN PO .MOD PAIN 4- 6; Start 10/20/18 at 14:00 Docusate Sodium (Colace) 100 mg Q12H PRN PO .CONSTIPATION; Start 10/20/18 at 14:00 Zolpidem Tartrate (Ambien) 5 mg QHS PRN PO .INSOMNIA Last administered on 10/22/18at 03:01; Admin Dose 5 MG; Start 10/20/18 at 14:00 Vancomycin HCl (Vanco Iv Per Pharmacy) VANCOMYCIN PER PHARMACY PER PROTOCOL XX ; Start 10/20/18 at 14:00 Acetaminophen (Tylenol Tab) 650 mg Q6H PRN PO MILD PAIN(1-3)OR ELEVATED TEMP; Start 10/20/18 at 17:30 Ibuprofen (Motrin) 600 mg Q6H PRN PO PAIN LEVEL 6-10 Last administered on 10/25/18at 15:36; Admin Dose 600 MG; Start 10/20/18 at 17:30 Acetaminophen/ Hydrocodone Bitart ([place] (5/325)) 1 tab Q6H PRN PO PAIN LEVEL 6-10 Last administered on 10/26/18at 15:07; Admin Dose 1 TAB; Start 10/20/18 at 17:30 Ondansetron HCl (Zofran Inj) 4 mg Q6H PRN IV NAUSEA AND/OR VOMITING; Start 10/20/18 at 17:30 Diphenhydramine HCl (Benadryl) 25 mg Q6H PRN IV ITCHING; Start 10/20/18 at 17:30 Methadone HCl (Methadone) 40 mg DAILY PO Last administered on 10/27/18 09:25; Admin Dose 40 MG; Start 10/21/18 at 12:00 Morphine Sulfate (Ms Contin (Er)) 30 mg BID PO Last administered on 10/27/18 09:25; Admin Dose 30 MG; Start 10/22/18 at 21:00 Hydromorphone HCl (Dilaudid) 1.5 mg Q4H PRN IV SEVERE PAIN LEVEL 7-10 Last administered on 10/27/18 12:31; Admin Dose 1.5 MG; Start 10/22/18 at 12:30 Saccharomyces Boulardii (Florastor) 250 mg BID PO Last administered on 10/27/18at 09:24; Admin Dose 250 MG; Start 10/23/18 at 21:00 IV Flush (NS 10 ml) 10 ml PRN PRN IV FLUSH LINE; Start 10/23/18 at 18:30 Vancomycin HCl 1.5 gm/Sodium Chloride 250 ml @ 83.333 mls/ hr Q12H IVPB Last administered on 10/27/18 08:22; Admin Dose 83.333 MLS/HR; Start 10/25/18 at 20:00 GORDON LUZ Oct 27, 2018 15:16
[2018-10-27 19:41] VITALS: BP 124/78; PULSE 72; RESP 18
[2018-10-28] MEDS: HYDROmorphONE 2 MG/ML SYG IV PRN ×5 (00:51→20:06)
[2018-10-28 01:15] VITALS: BP 100/59; PULSE 60; RESP 18
[2018-10-28] MEDS: ALTEPLASE (CATHFLO) 2 MG INJ CATHETER PRN ×2 (03:05→05:44)
[2018-10-28] MEDS: HYDROCODONE/APAP (5/325) TAB PO PRN (05:44)
[2018-10-28 08:10] VITALS: BP 124/80; PULSE 60; RESP 20
[2018-10-28] MEDS: morphine (ER) 30 MG TAB PO SCH ×2 (09:06→21:15)
[2018-10-28] MEDS: METHADONE 10 MG TAB PO SCH (09:06)
[2018-10-28] MEDS: SACCHAROMYCES BOULARDII 250 MG CAP PO SCH ×2 (09:06→21:15)
[2018-10-28] MEDS: VANCOMYCIN HCL 1.25 GM in SOD CHLORIDE 0.9% 250 ML IVPB SCH ×2 (10:20→21:15)
--- NOTE | 2018-10-28 13:41 | PDOCDIS ---
Discharge Instructions DIAGNOSIS Discharge Diagnosis 1. Sepsis with leukocytosis and febrile illness secondary to left, abscess, present on admission. 2. Left shoulder abscess. 3. Normocytic anemia. 4. History of heroin abuse. CONDITION [id number] Patient Condition: [id number] Stable HOME CARE INSTRUCTIONS: [id number] Diet Instructions: [id number] Regular FOLLOW UP/APPOINTMENTS Follow-up Plan 1. Follow up with Dr. Yared Matthew in one week Office Address [address] [place] [address]. [address] [place] [address] Office NELLIE DWYER NP Oct 28, 2018 13:41
--- NOTE | 2018-10-28 15:03 | PN ---
Date/Time of Note Date/Time of Note DATE: 10/28/18 TIME: 14:59 Assessment/Plan VTE Prophylaxis SCD applied (from Nsg): Yes Lines/Catheters IV Catheter Type (from Nrsg): PICC Line Urinary Cath still in place: No Assessment/Plan Hospital Course 1. Sepsis with leukocytosis and febrile illness secondary to left, abscess, present on admission. - Fluid culture growing-beta and alpha-hemolytic Streptococcus along with MRSA. - abx per ID 2. Left shoulder abscess. - Status post incision and drainage on 10/20/2018. - continue wound vac - Continue wound care as per general surgery. - Awaiting [facility] set up with wound vac for home 3. Normocytic anemia. - monitor H&H - stable at present 4. History of heroin abuse. - Patient has been clean for the past several months and is on methadone. - Continue methadone. Disposition and plan. Continue with antibiotics and wound care. Awaiting home health set up with wound VAC per immigration case manager. DC once set up Discussed plan of care with Dr. Thomason Result Diagram: 10/28/18 0710 10/28/18 0710 Results 24hrs Laboratory Tests Test 10/28/18 07:10 White Blood Count 10.1 Red Blood Count 4.84 Hemoglobin 13.6 L Hematocrit 42.1 Mean Corpuscular Volume 87.0 Mean Corpuscular Hemoglobin 28.1 L Mean Corpuscular Hemoglobin Concent 32.3 Red Cell Distribution Width 13.0 Platelet Count 415 # Mean Platelet Volume 9.0 Immature Granulocytes % 1.700 H Neutrophils % 64.3 Lymphocytes % 22.5 Monocytes % 7.0 Eosinophils % 3.5 Basophils % 1.0 Nucleated Red Blood Cells % 0.0 Immature Granulocytes # 0.170 H Neutrophils # 6.5 Lymphocytes # 2.3 Monocytes # 0.7 Eosinophils # 0.4 Basophils # 0.1 Nucleated Red Blood Cells # 0.0 Sodium Level 136 Potassium Level 4.3 Chloride Level 102 Carbon Dioxide Level 26 Anion Gap 8 Blood Urea Nitrogen 13 Creatinine 0.94 Est Glomerular Filtrat Rate mL/min > 60 Glucose Level 88 Calcium Level 9.0 Phosphorus Level 4.6 Magnesium Level 2.3 Vancomycin Level Trough 19.0 Subjective 24 Hr Interval Summary Free Text/Dictation no s/s of distress. comfortable at present. Exam/Review of Systems Exam Vitals Vital Signs Date Temp Pulse Resp B/P (MAP) Pulse Ox O2 O2 Flow FiO2 Time Delivery Rate 10/28/18 97.7 60 20 124/80 96 08:10 (95) 10/27/18 Room Air 14:40 Intake and Output 10/27/18 10/27/18 10/28/18 1515:00 23:00 07:00 IntakeIntake Total 490 ml 240 ml 250 ml OutputOutput Total 100 ml 20 ml 40 ml BalanceBalance 390 ml 220 ml 210 ml Constitutional: alert, oriented Psych: nl mood/affect Head: normocephalic Respiratory: clear to auscultation, normal air movement Cardiovascular: other (regular rate ) Gastrointestinal: soft, non-tender Musculoskeletal: other (wound vac left deltoid ) Neurological: GEOSPATIAL SPECIALIST II-XII intact, nl mental status, nl speech Skin: other (wound vac left arrm ) Results Results 24hrs Laboratory Tests Test 10/28/18 07:10 White Blood Count 10.1 Red Blood Count 4.84 Hemoglobin 13.6 L Hematocrit 42.1 Mean Corpuscular Volume 87.0 Mean Corpuscular Hemoglobin 28.1 L Mean Corpuscular Hemoglobin Concent 32.3 Red Cell Distribution Width 13.0 Platelet Count 415 # Mean Platelet Volume 9.0 Immature Granulocytes % 1.700 H Neutrophils % 64.3 Lymphocytes % 22.5 Monocytes % 7.0 Eosinophils % 3.5 Basophils % 1.0 Nucleated Red Blood Cells % 0.0 Immature Granulocytes # 0.170 H Neutrophils # 6.5 Lymphocytes # 2.3 Monocytes # 0.7 Eosinophils # 0.4 Basophils # 0.1 Nucleated Red Blood Cells # 0.0 Sodium Level 136 Potassium Level 4.3 Chloride Level 102 Carbon Dioxide Level 26 Anion Gap 8 Blood Urea Nitrogen 13 Creatinine 0.94 Est Glomerular Filtrat Rate mL/min > 60 Glucose Level 88 Calcium Level 9.0 Phosphorus Level 4.6 Magnesium Level 2.3 Vancomycin Level Trough 19.0 Medications Medication Current Medications IV Flush (NS 3 ml) 3 ml PER PROTOCOL IV ; Start 10/20/18 at 14:00 Acetaminophen (Tylenol Tab) 650 mg Q6H PRN PO .PAIN 1-3 OR TEMP Last administered on 10/24/18at 19:39; Admin Dose 650 MG; Start 10/20/18 at 14:00 Acetaminophen/ Hydrocodone Bitart ([place] (5/325)) 1 tab Q6H PRN PO .MOD PAIN 4- 6; Start 10/20/18 at 14:00 Docusate Sodium (Colace) 100 mg Q12H PRN PO .CONSTIPATION; Start 10/20/18 at 14:00 Zolpidem Tartrate (Ambien) 5 mg QHS PRN PO .INSOMNIA Last administered on 10/22/18at 03:01; Admin Dose 5 MG; Start 10/20/18 at 14:00 Vancomycin HCl (Vanco Iv Per Pharmacy) VANCOMYCIN PER PHARMACY PER PROTOCOL XX ; Start 10/20/18 at 14:00 Acetaminophen (Tylenol Tab) 650 mg Q6H PRN PO MILD PAIN(1-3)OR ELEVATED TEMP; Start 10/20/18 at 17:30 Ibuprofen (Motrin) 600 mg Q6H PRN PO PAIN LEVEL 6-10 Last administered on 10/25/18at 15:36; Admin Dose 600 MG; Start 10/20/18 at 17:30 Acetaminophen/ Hydrocodone Bitart ([place] (5/325)) 1 tab Q6H PRN PO PAIN LEVEL 6-10 Last administered on 10/28/18at 05:44; Admin Dose 1 TAB; Start 10/20/18 at 17:30 Ondansetron HCl (Zofran Inj) 4 mg Q6H PRN IV NAUSEA AND/OR VOMITING; Start 10/20/18 at 17:30 Diphenhydramine HCl (Benadryl) 25 mg Q6H PRN IV ITCHING; Start 10/20/18 at 17:30 Methadone HCl (Methadone) 40 mg DAILY PO Last administered on 10/28/18at 09:06; Admin Dose 40 MG; Start 10/21/18 at 12:00 Morphine Sulfate (Ms Contin (Er)) 30 mg BID PO Last administered on 10/28/18at 09:06; Admin Dose 30 MG; Start 10/22/18 at 21:00 Hydromorphone HCl (Dilaudid) 1.5 mg Q4H PRN IV SEVERE PAIN LEVEL 7-10 Last administered on 10/28/18at 12:06; Admin Dose 1.5 MG; Start 10/22/18 at 12:30 Saccharomyces Boulardii (Florastor) 250 mg BID PO Last administered on 10/28/18at 09:06; Admin Dose 250 MG; Start 10/23/18 at 21:00 IV Flush (NS 10 ml) 10 ml PRN PRN IV FLUSH LINE; Start 10/23/18 at 18:30 IV Flush (NS 10 ml) 10 ml PRN PRN IV FLUSH LINE; Start 10/27/18 at 18:30 Alteplase, Recombinant (Cathflo (Activase)) 2 mg MAY REPEAT X1 PRN CATHETER IF CATHETER REMAINS OCCULUDED Last administered on 10/28/18at 05:44; Admin Dose 2 MG; Start 10/28/18 at 01:30 Vancomycin HCl 1.25 gm/Sodium Chloride 250 ml @ 83.333 mls/ hr Q12H IVPB Last administered on 10/28/18at 10:20; Admin Dose 83.333 MLS/HR; Start 10/28/18 at 10:00 NELLIE DWYER NP Oct 28, 2018 15:03
--- NOTE | 2018-10-28 15:15 | CONS ---
Assessment/Plan Assessment/Plan Hospital Course (Demo Recall) No changes, afebrile, no fevers Abscess culture grew MRSA, alpha hemolytic and beta-hemolytic strep's, blood cultures grew staph on admission 1 out of 2 sets, repeat blood cultures pending Antimicrobials: Nileo Physical examination: Well-developed middle-aged white man who is alert in no di stress. Head atraumatic normocephalic sclera nonicteric neck is supple chest rise symmetrical breath sounds clear heart S1-S2 abdomen soft bowel sounds present extremities with left shoulder wound VAC present erythema markedly improved Assessment: 1. Left shoulder abscess, status post I&D 2. Bacteremia 3. Systemic inflammatory response syndrome with resolving leukocytosis 4. IV drug abuse Plan: Remains stable, may be dc'd on oral Clindamycin for 7 days Consultation Date/Type/Reason Admit Date/Time Oct 20, 2018 at 13:01 Initial Consult Date 10/20/18 Type of Consult id Requesting Provider: JOSEPH ALCANTARA Date/Time of Note DATE: 10/28/18 TIME: 15:15 Exam/Review of Systems Exam Vitals Vital Signs Date Temp Pulse Resp B/P (MAP) Pulse Ox O2 O2 Flow FiO2 Time Delivery Rate 10/28/18 97.7 60 20 124/80 96 08:10 (95) 10/27/18 Room Air 14:40 Intake and Output 10/27/18 10/27/18 10/28/18 1515:00 23:00 07:00 IntakeIntake Total 490 ml 240 ml 250 ml OutputOutput Total 100 ml 20 ml 40 ml BalanceBalance 390 ml 220 ml 210 ml Results Result Diagram: 10/28/18 0710 10/28/18 0710 Results 24hrs Laboratory Tests Test 10/28/18 07:10 White Blood Count 10.1 Red Blood Count 4.84 Hemoglobin 13.6 L Hematocrit 42.1 Mean Corpuscular Volume 87.0 Mean Corpuscular Hemoglobin 28.1 L Mean Corpuscular Hemoglobin Concent 32.3 Red Cell Distribution Width 13.0 Platelet Count 415 # Mean Platelet Volume 9.0 Immature Granulocytes % 1.700 H Neutrophils % 64.3 Lymphocytes % 22.5 Monocytes % 7.0 Eosinophils % 3.5 Basophils % 1.0 Nucleated Red Blood Cells % 0.0 Immature Granulocytes # 0.170 H Neutrophils # 6.5 Lymphocytes # 2.3 Monocytes # 0.7 Eosinophils # 0.4 Basophils # 0.1 Nucleated Red Blood Cells # 0.0 Sodium Level 136 Potassium Level 4.3 Chloride Level 102 Carbon Dioxide Level 26 Anion Gap 8 Blood Urea Nitrogen 13 Creatinine 0.94 Est Glomerular Filtrat Rate mL/min > 60 Glucose Level 88 Calcium Level 9.0 Phosphorus Level 4.6 Magnesium Level 2.3 Vancomycin Level Trough 19.0 Medications Medication Current Medications IV Flush (NS 3 ml) 3 ml PER PROTOCOL IV ; Start 10/20/18 at 14:00 Acetaminophen (Tylenol Tab) 650 mg Q6H PRN PO .PAIN 1-3 OR TEMP Last administered on 10/24/18at 19:39; Admin Dose 650 MG; Start 10/20/18 at 14:00 Acetaminophen/ Hydrocodone Bitart ([place] (5/325)) 1 tab Q6H PRN PO .MOD PAIN 4- 6; Start 10/20/18 at 14:00 Docusate Sodium (Colace) 100 mg Q12H PRN PO .CONSTIPATION; Start 10/20/18 at 14:00 Zolpidem Tartrate (Ambien) 5 mg QHS PRN PO .INSOMNIA Last administered on 10/22/18at 03:01; Admin Dose 5 MG; Start 10/20/18 at 14:00 Vancomycin HCl (Vanco Iv Per Pharmacy) VANCOMYCIN PER PHARMACY PER PROTOCOL XX ; Start 10/20/18 at 14:00 Acetaminophen (Tylenol Tab) 650 mg Q6H PRN PO MILD PAIN(1-3)OR ELEVATED TEMP; Start 10/20/18 at 17:30 Ibuprofen (Motrin) 600 mg Q6H PRN PO PAIN LEVEL 6-10 Last administered on 10/25/18at 15:36; Admin Dose 600 MG; Start 10/20/18 at 17:30 Acetaminophen/ Hydrocodone Bitart ([place] (5/325)) 1 tab Q6H PRN PO PAIN LEVEL 6-10 Last administered on 10/28/18at 05:44; Admin Dose 1 TAB; Start 10/20/18 at 17:30 Ondansetron HCl (Zofran Inj) 4 mg Q6H PRN IV NAUSEA AND/OR VOMITING; Start 10/20/18 at 17:30 Diphenhydramine HCl (Benadryl) 25 mg Q6H PRN IV ITCHING; Start 10/20/18 at 17:30 Methadone HCl (Methadone) 40 mg DAILY PO Last administered on 10/28/18 09:06; Admin Dose 40 MG; Start 10/21/18 at 12:00 Morphine Sulfate (Ms Contin (Er)) 30 mg BID PO Last administered on 10/28/18 09:06; Admin Dose 30 MG; Start 10/22/18 at 21:00 Hydromorphone HCl (Dilaudid) 1.5 mg Q4H PRN IV SEVERE PAIN LEVEL 7-10 Last administered on 10/28/18at 12:06; Admin Dose 1.5 MG; Start 10/22/18 at 12:30 Saccharomyces Boulardii (Florastor) 250 mg BID PO Last administered on 10/28/18 09:06; Admin Dose 250 MG; Start 10/23/18 at 21:00 IV Flush (NS 10 ml) 10 ml PRN PRN IV FLUSH LINE; Start 10/23/18 at 18:30 IV Flush (NS 10 ml) 10 ml PRN PRN IV FLUSH LINE; Start 10/27/18 at 18:30 Alteplase, Recombinant (Cathflo (Activase)) 2 mg MAY REPEAT X1 PRN CATHETER IF CATHETER REMAINS OCCULUDED Last administered on 10/28/18at 05:44; Admin Dose 2 MG; Start 10/28/18 at 01:30 Vancomycin HCl 1.25 gm/Sodium Chloride 250 ml @ 83.333 mls/ hr Q12H IVPB Last administered on 10/28/18at 10:20; Admin Dose 83.333 MLS/HR; Start 10/28/18 at 10:00 SUNITA CROWELL NP Oct 28, 2018 15:15
[2018-10-28 15:47] VITALS: BP 129/80; PULSE 75; RESP 20
[2018-10-28] MEDS: DIPHENHYDRAMINE 50 MG INJ IV PRN (16:37)
[2018-10-28 19:55] VITALS: BP 123/67; PULSE 68; RESP 18
[2018-10-29] MEDS: HYDROmorphONE 2 MG/ML SYG IV PRN ×6 (00:57→22:05)
[2018-10-29 01:01] VITALS: BP 94/57; PULSE 65; RESP 20
[2018-10-29 07:52] VITALS: BP 108/59; PULSE 85; RESP 20
[2018-10-29] MEDS: METHADONE 10 MG TAB PO SCH (08:27)
[2018-10-29] MEDS: morphine (ER) 30 MG TAB PO SCH ×2 (08:27→20:34)
[2018-10-29] MEDS: SACCHAROMYCES BOULARDII 250 MG CAP PO SCH ×2 (08:27→20:33)
[2018-10-29] MEDS: DIPHENHYDRAMINE 50 MG INJ IV PRN ×3 (08:35→20:57)
[2018-10-29] MEDS: VANCOMYCIN HCL 1.25 GM in SOD CHLORIDE 0.9% 250 ML IVPB SCH ×2 (09:50→22:08)
--- NOTE | 2018-10-29 10:07 | PN ---
Date/Time of Note Date/Time of Note DATE: 10/29/18 TIME: 10:03 Assessment/Plan VTE Prophylaxis SCD applied (from Nsg): Yes Pharmacological prophylaxis: NA/contraindicated Pharm contraindication: low risk/ambulating Lines/Catheters IV Catheter Type (from Nrsg): PICC Line Urinary Cath still in place: No Assessment/Plan Hospital Course 1. Sepsis with leukocytosis and febrile illness secondary to left, abscess, present on admission. - Fluid culture growing-beta and alpha-hemolytic Streptococcus along with MRSA. - abx per ID - plan for clyndamycin upon dc 2. Left shoulder abscess. - Status post incision and drainage on 10/20/2018. - continue wound vac - Continue wound care as per general surgery. - Awaiting [facility] set up with wound vac for home 3. Normocytic anemia. - monitor H&H - stable at present 4. History of heroin abuse. - Patient has been clean for the past several months and is on methadone. - Continue methadone. Disposition and plan. Continue with antibiotics and wound care. Awaiting for transition to outpatient with wound VAC per telephonic nurse case manager. DC once set up Discussed plan of care with Dr. Thomason Result Diagram: 10/29/18 0440 10/29/18 0440 Results 24hrs Laboratory Tests Test 10/29/18 04:40 White Blood Count 9.2 Red Blood Count 4.64 L Hemoglobin 13.1 L Hematocrit 41.3 L Mean Corpuscular Volume 89.0 Mean Corpuscular Hemoglobin 28.2 L Mean Corpuscular Hemoglobin Concent 31.7 L Red Cell Distribution Width 13.2 Platelet Count 380 Mean Platelet Volume 9.8 Immature Granulocytes % 1.700 H Neutrophils % 51.3 Lymphocytes % 32.3 Monocytes % 10.2 Eosinophils % 3.5 Basophils % 1.0 Nucleated Red Blood Cells % 0.0 Immature Granulocytes # 0.160 H Neutrophils # 4.8 Lymphocytes # 3.0 H Monocytes # 0.9 Eosinophils # 0.3 Basophils # 0.1 Nucleated Red Blood Cells # 0.0 Sodium Level 138 Potassium Level 4.4 Chloride Level 102 Carbon Dioxide Level 27 Anion Gap 9 Blood Urea Nitrogen 20 Creatinine 1.13 Est Glomerular Filtrat Rate mL/min > 60 Glucose Level 80 Calcium Level 8.9 Subjective 24 Hr Interval Summary Free Text/Dictation comfortable at present. no s/s of distress Exam/Review of Systems Exam Vitals Vital Signs Date Temp Pulse Resp B/P (MAP) Pulse Ox O2 O2 Flow FiO2 Time Delivery Rate 10/29/18 99.0 85 20 108/59 98 07:52 (75) 10/27/18 Room Air 14:40 Intake and Output 10/28/18 10/28/18 10/29/18 1515:00 23:00 07:00 IntakeIntake Total 1330 ml 840 ml 850 ml OutputOutput Total 1750 ml 1450 ml 600 ml BalanceBalance -420 ml -610 ml 250 ml Exam Constitutional: alert, oriented Psych: nl mood/affect Head: normocephalic Respiratory: clear to auscultation, normal air movement Cardiovascular: other (regular rate ) Gastrointestinal: soft, non-tender Musculoskeletal: other (wound vac left deltoid ) Neurological: [employer] II-XII intact, nl mental status, nl speech Skin: other (wound vac left arrm ) Results Results 24hrs Laboratory Tests Test 10/29/18 04:40 White Blood Count 9.2 Red Blood Count 4.64 L Hemoglobin 13.1 L Hematocrit 41.3 L Mean Corpuscular Volume 89.0 Mean Corpuscular Hemoglobin 28.2 L Mean Corpuscular Hemoglobin Concent 31.7 L Red Cell Distribution Width 13.2 Platelet Count 380 Mean Platelet Volume 9.8 Immature Granulocytes % 1.700 H Neutrophils % 51.3 Lymphocytes % 32.3 Monocytes % 10.2 Eosinophils % 3.5 Basophils % 1.0 Nucleated Red Blood Cells % 0.0 Immature Granulocytes # 0.160 H Neutrophils # 4.8 Lymphocytes # 3.0 H Monocytes # 0.9 Eosinophils # 0.3 Basophils # 0.1 Nucleated Red Blood Cells # 0.0 Sodium Level 138 Potassium Level 4.4 Chloride Level 102 Carbon Dioxide Level 27 Anion Gap 9 Blood Urea Nitrogen 20 Creatinine 1.13 Est Glomerular Filtrat Rate mL/min > 60 Glucose Level 80 Calcium Level 8.9 Medications Medication Current Medications IV Flush (NS 3 ml) 3 ml PER PROTOCOL IV ; Start 10/20/18 at 14:00 Acetaminophen (Tylenol Tab) 650 mg Q6H PRN PO .PAIN 1-3 OR TEMP Last administered on 10/24/18at 19:39; Admin Dose 650 MG; Start 10/20/18 at 14:00 Acetaminophen/ Hydrocodone Bitart ([place] (5/325)) 1 tab Q6H PRN PO .MOD PAIN 4- 6; Start 10/20/18 at 14:00 Docusate Sodium (Colace) 100 mg Q12H PRN PO .CONSTIPATION; Start 10/20/18 at 14:00 Zolpidem Tartrate (Ambien) 5 mg QHS PRN PO .INSOMNIA Last administered on 10/22/18at 03:01; Admin Dose 5 MG; Start 10/20/18 at 14:00 Vancomycin HCl (Vanco Iv Per Pharmacy) VANCOMYCIN PER PHARMACY PER PROTOCOL XX ; Start 10/20/18 at 14:00 Acetaminophen (Tylenol Tab) 650 mg Q6H PRN PO MILD PAIN(1-3)OR ELEVATED TEMP; Start 10/20/18 at 17:30 Ibuprofen (Motrin) 600 mg Q6H PRN PO PAIN LEVEL 6-10 Last administered on 10/25/18at 15:36; Admin Dose 600 MG; Start 10/20/18 at 17:30 Acetaminophen/ Hydrocodone Bitart ([place] (5/325)) 1 tab Q6H PRN PO PAIN LEVEL 6-10 Last administered on 10/28/18at 05:44; Admin Dose 1 TAB; Start 10/20/18 at 17:30 Ondansetron HCl (Zofran Inj) 4 mg Q6H PRN IV NAUSEA AND/OR VOMITING; Start 10/20/18 at 17:30 Diphenhydramine HCl (Benadryl) 25 mg Q6H PRN IV ITCHING Last administered on 10/29/18at 08:35; Admin Dose 25 MG; Start 10/20/18 at 17:30 Methadone HCl (Methadone) 40 mg DAILY PO Last administered on 10/29/18at 08:27; Admin Dose 40 MG; Start 10/21/18 at 12:00 Morphine Sulfate (Ms Contin (Er)) 30 mg BID PO Last administered on 10/29/18at 08:27; Admin Dose 30 MG; Start 10/22/18 at 21:00 Hydromorphone HCl (Dilaudid) 1.5 mg Q4H PRN IV SEVERE PAIN LEVEL 7-10 Last administered on 10/29/18at 09:48; Admin Dose 1.5 MG; Start 10/22/18 at 12:30 Saccharomyces Boulardii (Florastor) 250 mg BID PO Last administered on 10/29/18at 08:27; Admin Dose 250 MG; Start 10/23/18 at 21:00 IV Flush (NS 10 ml) 10 ml PRN PRN IV FLUSH LINE; Start 10/23/18 at 18:30 IV Flush (NS 10 ml) 10 ml PRN PRN IV FLUSH LINE; Start 10/27/18 at 18:30 Alteplase, Recombinant (Cathflo (Activase)) 2 mg MAY REPEAT X1 PRN CATHETER IF CATHETER REMAINS OCCULUDED Last administered on 10/28/18at 05:44; Admin Dose 2 MG; Start 10/28/18 at 01:30 Vancomycin HCl 1.25 gm/Sodium Chloride 250 ml @ 83.333 mls/ hr Q12H IVPB Last administered on 10/29/18at 09:50; Admin Dose 83.333 MLS/HR; Start 10/28/18 at 10:00 Miscellaneous Information (*Rx Drug Level Order Reminder*) VANCO TR AT 0900 0900 ONCE XX ; Start 10/30/18 at 09:00; Stop 10/30/18 at 09:01 NELLIE DWYER NP Oct 29, 2018 10:07
--- NOTE | 2018-10-29 12:02 | CONS ---
Assessment/Plan Assessment/Plan Hospital Course (Demo Recall) No changes per report Abscess culture grew MRSA, alpha hemolytic and beta-hemolytic strep's, blood cultures grew staph on admission 1 out of 2 sets, repeat blood cultures pending Antimicrobials: Nileo Physical examination: Well-developed middle-aged white man who is alert in no distress. Head atraumatic normocephalic sclera nonicteric neck is supple chest rise symmetrical breath sounds clear heart S1-S2 abdomen soft bowel sounds present extremities with left shoulder wound VAC present erythema markedly improved Assessment: 1. Left shoulder abscess, status post I&D 2. Bacteremia 3. Systemic inflammatory response syndrome with resolving leukocytosis 4. IV drug abuse Plan: Remains stable, pending dc arrangements for w.vac, dc on oral Clindamycin Consultation Date/Type/Reason Admit Date/Time Oct 20, 2018 at 13:01 Initial Consult Date 10/20/18 Type of Consult id Requesting Provider: JOSEPH ALCANTARA Date/Time of Note DATE: 10/29/18 TIME: 12:01 Exam/Review of Systems Exam Vitals Vital Signs Date Temp Pulse Resp B/P (MAP) Pulse Ox O2 O2 Flow FiO2 Time Delivery Rate 10/29/18 99.0 85 20 108/59 98 07:52 (75) 10/27/18 Room Air 14:40 Intake and Output 10/28/18 10/28/18 10/29/18 1515:00 23:00 07:00 IntakeIntake Total 1330 ml 840 ml 850 ml OutputOutput Total 1750 ml 1450 ml 600 ml BalanceBalance -420 ml -610 ml 250 ml Results Result Diagram: 10/29/18 0440 10/29/18 0440 Results 24hrs Laboratory Tests Test 10/29/18 04:40 White Blood Count 9.2 Red Blood Count 4.64 L Hemoglobin 13.1 L Hematocrit 41.3 L Mean Corpuscular Volume 89.0 Mean Corpuscular Hemoglobin 28.2 L Mean Corpuscular Hemoglobin Concent 31.7 L Red Cell Distribution Width 13.2 Platelet Count 380 Mean Platelet Volume 9.8 Immature Granulocytes % 1.700 H Neutrophils % 51.3 Lymphocytes % 32.3 Monocytes % 10.2 Eosinophils % 3.5 Basophils % 1.0 Nucleated Red Blood Cells % 0.0 Immature Granulocytes # 0.160 H Neutrophils # 4.8 Lymphocytes # 3.0 H Monocytes # 0.9 Eosinophils # 0.3 Basophils # 0.1 Nucleated Red Blood Cells # 0.0 Sodium Level 138 Potassium Level 4.4 Chloride Level 102 Carbon Dioxide Level 27 Anion Gap 9 Blood Urea Nitrogen 20 Creatinine 1.13 Est Glomerular Filtrat Rate mL/min > 60 Glucose Level 80 Calcium Level 8.9 Medications Medication Current Medications IV Flush (NS 3 ml) 3 ml PER PROTOCOL IV ; Start 10/20/18 at 14:00 Acetaminophen (Tylenol Tab) 650 mg Q6H PRN PO .PAIN 1-3 OR TEMP Last administered on 10/24/18at 19:39; Admin Dose 650 MG; Start 10/20/18 at 14:00 Acetaminophen/ Hydrocodone Bitart ([place] (5/325)) 1 tab Q6H PRN PO .MOD PAIN 4- 6; Start 10/20/18 at 14:00 Docusate Sodium (Colace) 100 mg Q12H PRN PO .CONSTIPATION; Start 10/20/18 at 14:00 Zolpidem Tartrate (Ambien) 5 mg QHS PRN PO .INSOMNIA Last administered on 10/22/18at 03:01; Admin Dose 5 MG; Start 10/20/18 at 14:00 Vancomycin HCl (Vanco Iv Per Pharmacy) VANCOMYCIN PER PHARMACY PER PROTOCOL XX ; Start 10/20/18 at 14:00 Acetaminophen (Tylenol Tab) 650 mg Q6H PRN PO MILD PAIN(1-3)OR ELEVATED TEMP; Start 10/20/18 at 17:30 Ibuprofen (Motrin) 600 mg Q6H PRN PO PAIN LEVEL 6-10 Last administered on 10/25/18at 15:36; Admin Dose 600 MG; Start 10/20/18 at 17:30 Acetaminophen/ Hydrocodone Bitart ([place] (5/325)) 1 tab Q6H PRN PO PAIN LEVEL 6-10 Last administered on 10/28/18at 05:44; Admin Dose 1 TAB; Start 10/20/18 at 17:30 Ondansetron HCl (Zofran Inj) 4 mg Q6H PRN IV NAUSEA AND/OR VOMITING; Start 10/20/18 at 17:30 Diphenhydramine HCl (Benadryl) 25 mg Q6H PRN IV ITCHING Last administered on 10/29/18at 08:35; Admin Dose 25 MG; Start 10/20/18 at 17:30 Methadone HCl (Methadone) 40 mg DAILY PO Last administered on 10/29/18 08:27; Admin Dose 40 MG; Start 10/21/18 at 12:00 Morphine Sulfate (Ms Contin (Er)) 30 mg BID PO Last administered on 10/29/18 08:27; Admin Dose 30 MG; Start 10/22/18 at 21:00 Hydromorphone HCl (Dilaudid) 1.5 mg Q4H PRN IV SEVERE PAIN LEVEL 7-10 Last administered on 10/29/18 09:48; Admin Dose 1.5 MG; Start 10/22/18 at 12:30 Saccharomyces Boulardii (Florastor) 250 mg BID PO Last administered on 10/29/18 08:27; Admin Dose 250 MG; Start 10/23/18 at 21:00 IV Flush (NS 10 ml) 10 ml PRN PRN IV FLUSH LINE; Start 10/23/18 at 18:30 IV Flush (NS 10 ml) 10 ml PRN PRN IV FLUSH LINE; Start 10/27/18 at 18:30 Alteplase, Recombinant (Cathflo (Activase)) 2 mg MAY REPEAT X1 PRN CATHETER IF CATHETER REMAINS OCCULUDED Last administered on 10/28/18at 05:44; Admin Dose 2 MG; Start 10/28/18 at 01:30 Vancomycin HCl 1.25 gm/Sodium Chloride 250 ml @ 83.333 mls/ hr Q12H IVPB Last administered on 10/29/18at 09:50; Admin Dose 83.333 MLS/HR; Start 10/28/18 at 10:00 Miscellaneous Information (*Rx Drug Level Order Reminder*) VANCO TR AT 0900 0900 ONCE XX ; Start 10/30/18 at 09:00; Stop 10/30/18 at 09:01 SUNITA CROWELL NP Oct 29, 2018 12:02
[2018-10-29 13:27] VITALS: BP 123/68; PULSE 59; RESP 20
[2018-10-29 19:51] VITALS: BP 114/72; PULSE 82; RESP 18
[2018-10-30] MEDS: HYDROmorphONE 2 MG/ML SYG IV PRN ×5 (02:05→22:31)
[2018-10-30 02:25] VITALS: BP 107/65; PULSE 67; RESP 18
[2018-10-30 07:52] VITALS: BP 111/66; PULSE 63; RESP 17
[2018-10-30] MEDS: METHADONE 10 MG TAB PO SCH (09:44)
[2018-10-30] MEDS: morphine (ER) 30 MG TAB PO SCH ×2 (09:44→21:10)
[2018-10-30] MEDS: SACCHAROMYCES BOULARDII 250 MG CAP PO SCH ×2 (09:44→21:10)
--- NOTE | 2018-10-30 10:19 | PN ---
Date/Time of Note Date/Time of Note DATE: 10/30/18 TIME: 10:17 Assessment/Plan VTE Prophylaxis SCD applied (from Nsg): Yes Pharmacological prophylaxis: NA/contraindicated Pharm contraindication: low risk/ambulating Lines/Catheters IV Catheter Type (from Nrsg): PICC Line Central line still needed: Yes Urinary Cath still in place: No Assessment/Plan Hospital Course 1. Sepsis with leukocytosis and febrile illness secondary to left, abscess, present on admission. - Fluid culture growing-beta and alpha-hemolytic Streptococcus along with MRSA. - abx per ID - plan for clindamycin upon dc 2. Left shoulder abscess. - Status post incision and drainage on 10/20/2018. - continue wound vac - Continue wound care as per general surgery. - Awaiting [facility] set up with wound vac for home 3. Normocytic anemia. - monitor H&H - stable at present 4. History of heroin abuse. - Patient has been clean for the past several months and is on methadone. - Continue methadone. Disposition and plan. Continue with antibiotics and wound care. Awaiting for transition to outpatient with wound VAC. Per case management, has been difficult to establish [facility] agency to accommodate wound vac needs for patient. will f/u. continue current tx Discussed plan of care with Dr. Thomason Result Diagram: 10/30/18 0433 10/30/18 0433 Results 24hrs Laboratory Tests Test 10/30/18 04:33 White Blood Count 9.0 Red Blood Count 4.65 L Hemoglobin 13.2 L Hematocrit 41.5 L Mean Corpuscular Volume 89.2 Mean Corpuscular Hemoglobin 28.4 L Mean Corpuscular Hemoglobin Concent 31.8 L Red Cell Distribution Width 13.1 Platelet Count 343 Mean Platelet Volume 9.8 Immature Granulocytes % 1.200 H Neutrophils % 50.4 Lymphocytes % 32.0 Monocytes % 11.0 Eosinophils % 4.4 Basophils % 1.0 Nucleated Red Blood Cells % 0.0 Immature Granulocytes # 0.110 H Neutrophils # 4.5 Lymphocytes # 2.9 Monocytes # 1.0 H Eosinophils # 0.4 Basophils # 0.1 Nucleated Red Blood Cells # 0.0 Sodium Level 140 Potassium Level 4.3 Chloride Level 102 Carbon Dioxide Level 27 Anion Gap 11 Blood Urea Nitrogen 26 H Creatinine 1.05 Est Glomerular Filtrat Rate mL/min > 60 Glucose Level 74 Calcium Level 8.9 Subjective 24 Hr Interval Summary Free Text/Dictation no s/s of distress. comfortable at present Exam/Review of Systems Exam Vitals Vital Signs Date Temp Pulse Resp B/P (MAP) Pulse Ox O2 O2 Flow FiO2 Time Delivery Rate 10/30/18 98.1 63 17 111/66 98 07:52 (81) 10/27/18 Room Air 14:40 Intake and Output 10/29/18 10/29/18 10/30/18 1515:00 23:00 07:00 IntakeIntake Total 1370 ml 760 ml 250 ml OutputOutput Total 1250 ml 1100 ml 10 ml BalanceBalance 120 ml -340 ml 240 ml Exam Constitutional: alert, oriented Psych: nl mood/affect Head: normocephalic Respiratory: clear to auscultation, normal air movement Cardiovascular: other (regular rate ) Gastrointestinal: soft, non-tender Musculoskeletal: other (wound vac left deltoid ) Neurological: PLANT OPERATIONS WORKER II-XII intact, nl mental status, nl speech Skin: other (wound vac left arrm ) Results Results 24hrs Laboratory Tests Test 10/30/18 04:33 White Blood Count 9.0 Red Blood Count 4.65 L Hemoglobin 13.2 L Hematocrit 41.5 L Mean Corpuscular Volume 89.2 Mean Corpuscular Hemoglobin 28.4 L Mean Corpuscular Hemoglobin Concent 31.8 L Red Cell Distribution Width 13.1 Platelet Count 343 Mean Platelet Volume 9.8 Immature Granulocytes % 1.200 H Neutrophils % 50.4 Lymphocytes % 32.0 Monocytes % 11.0 Eosinophils % 4.4 Basophils % 1.0 Nucleated Red Blood Cells % 0.0 Immature Granulocytes # 0.110 H Neutrophils # 4.5 Lymphocytes # 2.9 Monocytes # 1.0 H Eosinophils # 0.4 Basophils # 0.1 Nucleated Red Blood Cells # 0.0 Sodium Level 140 Potassium Level 4.3 Chloride Level 102 Carbon Dioxide Level 27 Anion Gap 11 Blood Urea Nitrogen 26 H Creatinine 1.05 Est Glomerular Filtrat Rate mL/min > 60 Glucose Level 74 Calcium Level 8.9 Medications Medication Current Medications IV Flush (NS 3 ml) 3 ml PER PROTOCOL IV ; Start 10/20/18 at 14:00 Acetaminophen (Tylenol Tab) 650 mg Q6H PRN PO .PAIN 1-3 OR TEMP Last a dministered on 10/24/18at 19:39; Admin Dose 650 MG; Start 10/20/18 at 14:00 Acetaminophen/ Hydrocodone Bitart ([place] (5/325)) 1 tab Q6H PRN PO .MOD PAIN 4- 6; Start 10/20/18 at 14:00 Docusate Sodium (Colace) 100 mg Q12H PRN PO .CONSTIPATION; Start 10/20/18 at 14:00 Zolpidem Tartrate (Ambien) 5 mg QHS PRN PO .INSOMNIA Last administered on 10/22/18 03:01; Admin Dose 5 MG; Start 10/20/18 at 14:00 Vancomycin HCl (Vanco Iv Per Pharmacy) VANCOMYCIN PER PHARMACY PER PROTOCOL XX ; Start 10/20/18 at 14:00 Acetaminophen (Tylenol Tab) 650 mg Q6H PRN PO MILD PAIN(1-3)OR ELEVATED TEMP; Start 10/20/18 at 17:30 Ibuprofen (Motrin) 600 mg Q6H PRN PO PAIN LEVEL 6-10 Last administered on 10/25/18at 15:36; Admin Dose 600 MG; Start 10/20/18 at 17:30 Acetaminophen/ Hydrocodone Bitart ([place] (5/325)) 1 tab Q6H PRN PO PAIN LEVEL 6-10 Last administered on 10/28/18 05:44; Admin Dose 1 TAB; Start 10/20/18 at 17:30 Ondansetron HCl (Zofran Inj) 4 mg Q6H PRN IV NAUSEA AND/OR VOMITING; Start 10/20/18 at 17:30 Diphenhydramine HCl (Benadryl) 25 mg Q6H PRN IV ITCHING Last administered on 10/29/18at 20:57; Admin Dose 25 MG; Start 10/20/18 at 17:30 Methadone HCl (Methadone) 40 mg DAILY PO Last administered on 10/30/18 09:44; Admin Dose 40 MG; Start 10/21/18 at 12:00 Morphine Sulfate (Ms Contin (Er)) 30 mg BID PO Last administered on 10/30/18 09:44; Admin Dose 30 MG; Start 10/22/18 at 21:00 Hydromorphone HCl (Dilaudid) 1.5 mg Q4H PRN IV SEVERE PAIN LEVEL 7-10 Last administered on 10/30/18 06:05; Admin Dose 1.5 MG; Start 10/22/18 at 12:30 Saccharomyces Boulardii (Florastor) 250 mg BID PO Last administered on 10/30/18at 09:44; Admin Dose 250 MG; Start 10/23/18 at 21:00 IV Flush (NS 10 ml) 10 ml PRN PRN IV FLUSH LINE; Start 10/23/18 at 18:30 IV Flush (NS 10 ml) 10 ml PRN PRN IV FLUSH LINE; Start 10/27/18 at 18:30 Alteplase, Recombinant (Cathflo (Activase)) 2 mg MAY REPEAT X1 PRN CATHETER IF CATHETER REMAINS OCCULUDED Last administered on 10/28/18at 05:44; Admin Dose 2 MG; Start 10/28/18 at 01:30 Vancomycin HCl 1.25 gm/Sodium Chloride 250 ml @ 83.333 mls/ hr Q12H IVPB Last administered on 10/29/18at 22:08; Admin Dose 83.333 MLS/HR; Start 10/28/18 at 10:00 NELLIE DWYER NP Oct 30, 2018 10:19
--- NOTE | 2018-10-30 10:32 | CONS ---
Assessment/Plan Assessment/Plan Hospital Course (Demo Recall) No changes per report, afebrile, nad Abscess culture grew MRSA, alpha hemolytic and beta-hemolytic strep's, blood cultures grew staph on admission 1 out of 2 sets, repeat blood cultures pending Antimicrobials: Nileo Physical examination: Well-developed middle-aged white man who is alert in no distress. Head atraumatic normocephalic sclera nonicteric neck is supple chest rise symmetrical breath sounds clear heart S1-S2 abdomen soft bowel sounds present extremities with left shoulder wound VAC present erythema markedly improved Assessment: 1. Left shoulder abscess, status post I&D 2. Bacteremia 3. Systemic inflammatory response syndrome with resolving leukocytosis 4. IV drug abuse Plan: Remains stable, pending dc arrangements for w.vac, dc on oral Clindamycin for 4 more days Consultation Date/Type/Reason Admit Date/Time Oct 20, 2018 at 13:01 Initial Consult Date 10/20/18 Type of Consult id Requesting Provider: JOSEPH ALCANTARA Date/Time of Note DATE: 10/30/18 TIME: 10:31 Exam/Review of Systems Exam Vitals Vital Signs Date Temp Pulse Resp B/P (MAP) Pulse Ox O2 O2 Flow FiO2 Time Delivery Rate 10/30/18 98.1 63 17 111/66 98 07:52 (81) 10/27/18 Room Air 14:40 Intake and Output 10/29/18 10/29/18 10/30/18 1515:00 23:00 07:00 IntakeIntake Total 1370 ml 760 ml 250 ml OutputOutput Total 1250 ml 1100 ml 10 ml BalanceBalance 120 ml -340 ml 240 ml Results Result Diagram: 10/30/18 0433 10/30/18 0433 Results 24hrs Laboratory Tests Test 10/30/18 04:33 White Blood Count 9.0 Red Blood Count 4.65 L Hemoglobin 13.2 L Hematocrit 41.5 L Mean Corpuscular Volume 89.2 Mean Corpuscular Hemoglobin 28.4 L Mean Corpuscular Hemoglobin Concent 31.8 L Red Cell Distribution Width 13.1 Platelet Count 343 Mean Platelet Volume 9.8 Immature Granulocytes % 1.200 H Neutrophils % 50.4 Lymphocytes % 32.0 Monocytes % 11.0 Eosinophils % 4.4 Basophils % 1.0 Nucleated Red Blood Cells % 0.0 Immature Granulocytes # 0.110 H Neutrophils # 4.5 Lymphocytes # 2.9 Monocytes # 1.0 H Eosinophils # 0.4 Basophils # 0.1 Nucleated Red Blood Cells # 0.0 Sodium Level 140 Potassium Level 4.3 Chloride Level 102 Carbon Dioxide Level 27 Anion Gap 11 Blood Urea Nitrogen 26 H Creatinine 1.05 Est Glomerular Filtrat Rate mL/min > 60 Glucose Level 74 Calcium Level 8.9 Medications Medication Current Medications IV Flush (NS 3 ml) 3 ml PER PROTOCOL IV ; Start 10/20/18 at 14:00 Acetaminophen (Tylenol Tab) 650 mg Q6H PRN PO .PAIN 1-3 OR TEMP Last a dministered on 10/24/18at 19:39; Admin Dose 650 MG; Start 10/20/18 at 14:00 Acetaminophen/ Hydrocodone Bitart ([place] (5/325)) 1 tab Q6H PRN PO .MOD PAIN 4- 6; Start 10/20/18 at 14:00 Docusate Sodium (Colace) 100 mg Q12H PRN PO .CONSTIPATION; Start 10/20/18 at 14:00 Zolpidem Tartrate (Ambien) 5 mg QHS PRN PO .INSOMNIA Last administered on 10/22/18at 03:01; Admin Dose 5 MG; Start 10/20/18 at 14:00 Vancomycin HCl (Vanco Iv Per Pharmacy) VANCOMYCIN PER PHARMACY PER PROTOCOL XX ; Start 10/20/18 at 14:00 Acetaminophen (Tylenol Tab) 650 mg Q6H PRN PO MILD PAIN(1-3)OR ELEVATED TEMP; Start 10/20/18 at 17:30 Ibuprofen (Motrin) 600 mg Q6H PRN PO PAIN LEVEL 6-10 Last administered on 10/25/18at 15:36; Admin Dose 600 MG; Start 10/20/18 at 17:30 Acetaminophen/ Hydrocodone Bitart ([place] (5/325)) 1 tab Q6H PRN PO PAIN LEVEL 6-10 Last administered on 10/28/18at 05:44; Admin Dose 1 TAB; Start 10/20/18 at 17:30 Ondansetron HCl (Zofran Inj) 4 mg Q6H PRN IV NAUSEA AND/OR VOMITING; Start 10/20/18 at 17:30 Diphenhydramine HCl (Benadryl) 25 mg Q6H PRN IV ITCHING Last administered on 10/29/18 20:57; Admin Dose 25 MG; Start 10/20/18 at 17:30 Methadone HCl (Methadone) 40 mg DAILY PO Last administered on 10/30/18 09:44; Admin Dose 40 MG; Start 10/21/18 at 12:00 Morphine Sulfate (Ms Contin (Er)) 30 mg BID PO Last administered on 10/30/18 09:44; Admin Dose 30 MG; Start 10/22/18 at 21:00 Hydromorphone HCl (Dilaudid) 1.5 mg Q4H PRN IV SEVERE PAIN LEVEL 7-10 Last administered on 10/30/18 06:05; Admin Dose 1.5 MG; Start 10/22/18 at 12:30 Saccharomyces Boulardii (Florastor) 250 mg BID PO Last administered on 10/30/18 09:44; Admin Dose 250 MG; Start 10/23/18 at 21:00 IV Flush (NS 10 ml) 10 ml PRN PRN IV FLUSH LINE; Start 10/23/18 at 18:30 IV Flush (NS 10 ml) 10 ml PRN PRN IV FLUSH LINE; Start 10/27/18 at 18:30 Alteplase, Recombinant (Cathflo (Activase)) 2 mg MAY REPEAT X1 PRN CATHETER IF CATHETER REMAINS OCCULUDED Last administered on 10/28/18 05:44; Admin Dose 2 MG; Start 10/28/18 at 01:30 Vancomycin HCl 1.25 gm/Sodium Chloride 250 ml @ 83.333 mls/ hr Q12H IVPB Last administered on 10/29/18 22:08; Admin Dose 83.333 MLS/HR; Start 10/28/18 at 10:00 SUNITA CROWELL NP Oct 30, 2018 10:32
[2018-10-30] MEDS: ALTEPLASE (CATHFLO) 2 MG INJ CATHETER PRN (10:45)
[2018-10-30] MEDS: VANCOMYCIN HCL 1.25 GM in SOD CHLORIDE 0.9% 250 ML IVPB SCH ×2 (11:34→22:31)
[2018-10-30] MEDS: DIPHENHYDRAMINE 50 MG INJ IV PRN ×2 (11:34→18:04)
[2018-10-30 16:16] VITALS: BP 111/67; PULSE 75; RESP 18
[2018-10-30 19:43] VITALS: BP 116/65; PULSE 58; RESP 18
[2018-10-31 01:46] VITALS: BP 108/64; PULSE 67; RESP 18
[2018-10-31] MEDS: HYDROmorphONE 2 MG/ML SYG IV PRN ×5 (03:09→20:46)
[2018-10-31] MEDS: DIPHENHYDRAMINE 50 MG INJ IV PRN ×4 (03:12→22:48)
[2018-10-31 07:37] VITALS: BP 106/63; PULSE 62; RESP 15
[2018-10-31] MEDS: morphine (ER) 30 MG TAB PO SCH (09:22)
[2018-10-31] MEDS: METHADONE 10 MG TAB PO SCH (09:22)
[2018-10-31] MEDS: SACCHAROMYCES BOULARDII 250 MG CAP PO SCH ×2 (09:22→20:46)
[2018-10-31] MEDS: VANCOMYCIN HCL 1.25 GM in SOD CHLORIDE 0.9% 250 ML IVPB SCH ×2 (09:43→22:03)
--- NOTE | 2018-10-31 10:27 | PN ---
Date/Time of Note Date/Time of Note DATE: 10/31/18 TIME: 10:25 Assessment/Plan VTE Prophylaxis SCD applied (from Nsg): Yes Pharmacological prophylaxis: NA/contraindicated Pharm contraindication: low risk/ambulating Lines/Catheters IV Catheter Type (from Nrsg): PICC Line Urinary Cath still in place: No Assessment/Plan Hospital Course 1. Sepsis with leukocytosis and febrile illness secondary to left, abscess, present on admission. - Fluid culture growing-beta and alpha-hemolytic Streptococcus along with MRSA. - abx per ID - plan for clindamycin upon dc 2. Left shoulder abscess. - Status post incision and drainage on 10/20/2018. - continue wound vac - Continue wound care as per general surgery. - Awaiting [facility] set up with wound vac for home 3. Normocytic anemia. - monitor H&H - stable at present 4. History of heroin abuse. - Patient has been clean for the past several months and is on methadone. - Continue methadone. Disposition and plan. Continue with antibiotics and wound care. Awaiting for transition to outpatient with wound VAC. Per case management, has been difficult to establish [facility] agency to accommodate wound vac needs for patient. continue current tx . continue supportive care. check AM labs Discussed plan of care with Dr. Thomason Result Diagram: 10/30/1843210/30/18 043 Subjective 24 Hr Interval Summary Free Text/Dictation comfortable at present. no specific complaints Exam/Review of Systems Exam Vitals Vital Signs Date Temp Pulse Resp B/P (MAP) Pulse Ox O2 O2 Flow FiO2 Time Delivery Rate 10/31/18 98.2 62 15 106/63 96 Room Air 07:37 (77) Intake and Output 10/30/18 10/30/18 10/31/18 1515:00 23:00 07:00 IntakeIntake Total 1330 ml 960 ml 730 ml OutputOutput Total 625 ml 900 ml 5 ml BalanceBalance 705 ml 60 ml 725 ml Exam Constitutional: alert, oriented Psych: nl mood/affect Head: normocephalic Respiratory: clear to auscultation, normal air movement Cardiovascular: other (regular rate ) Gastrointestinal: soft, non-tender Musculoskeletal: other (wound vac left deltoid ) 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, nl mental status, nl speech Skin: other (wound vac left arrm ) Medications Medication Current Medications IV Flush (NS 3 ml) 3 ml PER PROTOCOL IV ; Start 10/20/18 at 14:00 Acetaminophen (Tylenol Tab) 650 mg Q6H PRN PO .PAIN 1-3 OR TEMP Last administered on 10/24/18at 19:39; Admin Dose 650 MG; Start 10/20/18 at 14:00 Acetaminophen/ Hydrocodone Bitart ([place] (5/325)) 1 tab Q6H PRN PO .MOD PAIN 4- 6; Start 10/20/18 at 14:00 Docusate Sodium (Colace) 100 mg Q12H PRN PO .CONSTIPATION; Start 10/20/18 at 14:00 Zolpidem Tartrate (Ambien) 5 mg QHS PRN PO .INSOMNIA Last administered on 10/22/18 03:01; Admin Dose 5 MG; Start 10/20/18 at 14:00 Vancomycin HCl (Vanco Iv Per Pharmacy) VANCOMYCIN PER PHARMACY PER PROTOCOL XX ; Start 10/20/18 at 14:00 Acetaminophen (Tylenol Tab) 650 mg Q6H PRN PO MILD PAIN(1-3)OR ELEVATED TEMP; Start 10/20/18 at 17:30 Ibuprofen (Motrin) 600 mg Q6H PRN PO PAIN LEVEL 6-10 Last administered on at 15:36; Admin Dose 600 MG; Start 10/20/18 at 17:30 Acetaminophen/ Hydrocodone Bitart ([place] (5/325)) 1 tab Q6H PRN PO PAIN LEVEL 6-10 Last administered on 10/28/18at 05:44; Admin Dose 1 TAB; Start 10/20/18 at 17:30 Ondansetron HCl (Zofran Inj) 4 mg Q6H PRN IV NAUSEA AND/OR VOMITING; Start 10/20 at 17:30 Diphenhydramine HCl (Benadryl) 25 mg Q6H PRN IV ITCHING Last administered on 10/31/18 09:23; Admin Dose 25 MG; Start 10/20/18 at 17:30 Methadone HCl (Methadone) 40 mg DAILY PO Last administered on 10/31/18 09:22; Admin Dose 40 MG; Start 10/21/18 at 12:00 Morphine Sulfate (Ms Contin (Er)) 30 mg BID PO Last administered on 6/20/19at 09:22; Admin Dose 30 MG; Start 10/22/18 at 21:00 Hydromorphone HCl (Dilaudid) 1.5 mg Q4H PRN IV SEVERE PAIN LEVEL 7-10 Last administered on 10/31/18at 08:02; Admin Dose 1.5 MG; Start 10/22/18 at 12:30 Saccharomyces Boulardii (Florastor) 250 mg BID PO Last administered on 10/31/18 09:22; Admin Dose 250 MG; Start 10/23/18 at 21:00 IV Flush (NS 10 ml) 10 ml PRN PRN IV FLUSH LINE Last administered on 10/31/18at 09:24; Admin Dose 10 ML; Start 10/23/18 at 18:30 IV Flush (NS 10 ml) 10 ml PRN PRN IV FLUSH LINE; Start 10/27/18 at 18:30 Alteplase, Recombinant (Cathflo (Activase)) 2 mg MAY REPEAT X1 PRN CATHETER IF CATHETER REMAINS OCCULUDED Last administered on 10/30/18at 10:45; Admin Dose 2 MG; Start 10/28/18 at 01:30 Vancomycin HCl 1.25 gm/Sodium Chloride 250 ml @ 83.333 mls/ hr Q12H IVPB Last administered on 10/31/18at 09:43; Admin Dose 83.333 MLS/HR; Start 10/28/18 at 10:00 NELLIE DWYER NP Oct 31, 2018 10:27
--- NOTE | 2018-10-31 13:08 | CONS ---
Assessment/Plan Assessment/Plan Hospital Course (Demo Recall) No acute events overnight patient is awake in no distress afebrile no fevers overnight left arm with wound VAC no erythema surrounding Abscess culture grew MRSA, alpha hemolytic and beta-hemolytic strep's, blood cultures grew staph on admission 1 out of 2 sets, repeat blood cultures pending Antimicrobials: Vanco Physical examination: Well-developed middle-aged white man who is alert in no distress. Head atraumatic normocephalic sclera nonicteric neck is supple chest rise symmetrical breath sounds clear heart S1-S2 abdomen soft bowel sounds present extremities with left shoulder wound VAC present erythema markedly improved Assessment: 1. Left shoulder abscess, status post I&D 2. Bacteremia 3. Systemic inflammatory response syndrome with resolving leukocytosis 4. IV drug abuse Plan: Remains stable, okay discharge on oral Clindamycin for 3 more days Consultation Date/Type/Reason Admit Date/Time Oct 20, 2018 at 13:01 Initial Consult Date 10/20/18 Type of Consult id Requesting Provider: JOSEPH ALCANTARA Date/Time of Note DATE: 10/31/18 TIME: 13:07 Exam/Review of Systems Exam Vitals Vital Signs Date Temp Pulse Resp B/P (MAP) Pulse Ox O2 O2 Flow FiO2 Time Delivery Rate 10/31/18 98.2 62 15 106/63 96 Room Air 07:37 (77) Intake and Output 10/30/18 10/30/18 10/31/18 1515:00 23:00 07:00 IntakeIntake Total 1330 ml 960 ml 730 ml OutputOutput Total 625 ml 900 ml 5 ml BalanceBalance 705 ml 60 ml 725 ml Results Result Diagram: 10/30/18 0433 10/30/18 0433 Medications Medication Current Medications IV Flush (NS 3 ml) 3 ml PER PROTOCOL IV ; Start 10/20/18 at 14:00 Acetaminophen (Tylenol Tab) 650 mg Q6H PRN PO .PAIN 1-3 OR TEMP Last administered on 10/24/18at 19:39; Admin Dose 650 MG; Start 10/20/18 at 14:00 Acetaminophen/ Hydrocodone Bitart ([place] (5/325)) 1 tab Q6H PRN PO .MOD PAIN 4- 6; Start 10/20/18 at 14:00 Docusate Sodium (Colace) 100 mg Q12H PRN PO .CONSTIPATION; Start 10/20/18 at 1 4:00 Zolpidem Tartrate (Ambien) 5 mg QHS PRN PO .INSOMNIA Last administered on 10/22/18 03:01; Admin Dose 5 MG; Start 10/20/18 at 14:00 Vancomycin HCl (Vanco Iv Per Pharmacy) VANCOMYCIN PER PHARMACY PER PROTOCOL XX ; Start 10/20/18 at 14:00 Acetaminophen (Tylenol Tab) 650 mg Q6H PRN PO MILD PAIN(1-3)OR ELEVATED TEMP; Start 10/20/18 at 17:30 Ibuprofen (Motrin) 600 mg Q6H PRN PO PAIN LEVEL 6-10 Last administered on 10/25/18at 15:36; Admin Dose 600 MG; Start 10/20/18 at 17:30 Acetaminophen/ Hydrocodone Bitart ([place] (5/325)) 1 tab Q6H PRN PO PAIN LEVEL 6-10 Last administered on 10/28/18at 05:44; Admin Dose 1 TAB; Start 10/20/18 at 17:30 Ondansetron HCl (Zofran Inj) 4 mg Q6H PRN IV NAUSEA AND/OR VOMITING; Start 10/20/18 at 17:30 Diphenhydramine HCl (Benadryl) 25 mg Q6H PRN IV ITCHING Last administered on 10/31/18 09:23; Admin Dose 25 MG; Start 10/20/18 at 17:30 Methadone HCl (Methadone) 40 mg DAILY PO Last administered on 10/31/18 09:22; Admin Dose 40 MG; Start 10/21/18 at 12:00 Morphine Sulfate (Ms Contin (Er)) 30 mg BID PO Last administered on 10/31/18 09:22; Admin Dose 30 MG; Start 10/22/18 at 21:00 Hydromorphone HCl (Dilaudid) 1.5 mg Q4H PRN IV SEVERE PAIN LEVEL 7-10 Last administered on 10/31/18 12:17; Admin Dose 1.5 MG; Start 10/22/18 at 12:30 Saccharomyces Boulardii (Florastor) 250 mg BID PO Last administered on 10/31/18 09:22; Admin Dose 250 MG; Start 10/23/18 at 21:00 IV Flush (NS 10 ml) 10 ml PRN PRN IV FLUSH LINE Last administered on 10/31/18at 09:24; Admin Dose 10 ML; Start 10/23/18 at 18:30 IV Flush (NS 10 ml) 10 ml PRN PRN IV FLUSH LINE; Start 10/27/18 at 18:30 Alteplase, Recombinant (Cathflo (Activase)) 2 mg MAY REPEAT X1 PRN CATHETER IF CATHETER REMAINS OCCULUDED Last administered on 10/30/18at 10:45; Admin Dose 2 MG; Start 10/28/18 at 01:30 Vancomycin HCl 1.25 gm/Sodium Chloride 250 ml @ 83.333 mls/ hr Q12H IVPB Last administered on 10/31/18at 09:43; Admin Dose 83.333 MLS/HR; Start 10/28/18 at 10:00 SUNITA CROWELL NP Oct 31, 2018 13:08
[2018-10-31 14:01] VITALS: BP 107/61; PULSE 60; RESP 16
[2018-10-31 19:54] VITALS: BP 115/72; PULSE 72; RESP 16
[2018-11-01 01:22] VITALS: BP 107/70; PULSE 55; RESP 16
[2018-11-01] MEDS: HYDROmorphONE 2 MG/ML SYG IV PRN ×6 (01:42→22:48)
[2018-11-01] MEDS: DIPHENHYDRAMINE 50 MG INJ IV PRN ×4 (04:56→23:59)
[2018-11-01 07:59] VITALS: BP 103/57; PULSE 58; RESP 18
[2018-11-01] MEDS: METHADONE 10 MG TAB PO SCH (09:16)
[2018-11-01] MEDS: SACCHAROMYCES BOULARDII 250 MG CAP PO SCH ×2 (09:16→22:08)
[2018-11-01] MEDS: VANCOMYCIN HCL 1.25 GM in SOD CHLORIDE 0.9% 250 ML IVPB SCH ×2 (10:18→22:08)
--- NOTE | 2018-11-01 10:48 | PN ---
Date/Time of Note Date/Time of Note DATE: 11/01/18 TIME: 10:46 Assessment/Plan VTE Prophylaxis SCD applied (from Nsg): Yes Pharmacological prophylaxis: NA/contraindicated Pharm contraindication: low risk/ambulating Lines/Catheters IV Catheter Type (from Nrsg): PICC Line Urinary Cath still in place: No Assessment/Plan Hospital Course 1. Sepsis with leukocytosis and febrile illness secondary to left, abscess, present on admission. - Fluid culture growing-beta and alpha-hemolytic Streptococcus along with MRSA. - abx per ID - plan for clindamycin upon dc 2. Left shoulder abscess. - Status post incision and drainage on 10/20/2018. - continue wound vac - Continue wound care as per general surgery. - Awaiting [facility] set up with wound vac for home 3. Normocytic anemia. - monitor H&H - stable at present 4. History of heroin abuse. - Patient has been clean for the past several months and is on methadone. - Continue methadone. Disposition and plan. Continue with antibiotics and wound care. Awaiting for transition to outpatient with wound VAC. Per case management, has been difficult to establish [facility] agency to accommodate wound vac needs for patient. pain man agement consult following. continue with recommendations Discussed plan of care with Dr. Thomason Result Diagram: 10/30/18 0433 11/01/18 0453 Results 24hrs Laboratory Tests Test 11/01/18 04:53 Blood Urea Nitrogen 20 Creatinine 0.96 Subjective 24 Hr Interval Summary Free Text/Dictation no s/s of distress. comfortable at present. Exam/Review of Systems Exam Vitals Vital Signs Date Temp Pulse Resp B/P (MAP) Pulse Ox O2 O2 Flow FiO2 Time Delivery Rate 11/01/18 98.2 58 18 103/57 97 Room Air 07:59 (72) Intake and Output 10/31/18 10/31/18 11/01/18 1515:00 23:00 07:00 IntakeIntake Total 250 ml 700 ml 700 ml OutputOutput Total 1005 ml 1160 ml BalanceBalance 250 ml -305 ml -460 ml Exam Constitutional: alert, oriented Psych: nl mood/affect Head: normocephalic Respiratory: clear to auscultation, normal air movement Cardiovascular: other (regular rate ) Gastrointestinal: soft, non-tender Musculoskeletal: other (wound vac left deltoid ) Neurological: STORE SALES CONSULTANT II-XII intact, nl mental status, nl speech Skin: other (wound vac left arrm ) Results Results 24hrs Laboratory Tests Test 11/01/18 04:53 Blood Urea Nitrogen 20 Creatinine 0.96 Medications Medication Current Medications IV Flush (NS 3 ml) 3 ml PER PROTOCOL IV Last administered on 11/01/18 09:17; Admin Dose 3 ML; Start 10/20/18 at 14:00 Acetaminophen (Tylenol Tab) 650 mg Q6H PRN PO .PAIN 1-3 OR TEMP Last administered on 10/24/18 19:39; Admin Dose 650 MG; Start 10/20/18 at 14:00 Docusate Sodium (Colace) 100 mg Q12H PRN PO .CONSTIPATION; Start 10/20/18 at 14:00 Zolpidem Tartrate (Ambien) 5 mg QHS PRN PO .INSOMNIA Last administered on 10/22/18 03:01; Admin Dose 5 MG; Start 10/20/18 at 14:00 Vancomycin HCl (Vanco Iv Per Pharmacy) VANCOMYCIN PER PHARMACY PER PROTOCOL XX ; Start 10/20/18 at 14:00 Acetaminophen (Tylenol Tab) 650 mg Q6H PRN PO MILD PAIN(1-3)OR ELEVATED TEMP; Start 10/20/18 at 17:30 Ondansetron HCl (Zofran Inj) 4 mg Q6H PRN IV NAUSEA AND/OR VOMITING; Start 10/20/18 at 17:30 Diphenhydramine HCl (Benadryl) 25 mg Q6H PRN IV ITCHING Last administered on 11/01/18at 04:56; Admin Dose 25 MG; Start 10/20/18 at 17:30 Methadone HCl (Methadone) 40 mg DAILY PO Last administered on 11/01/18 09:16; Admin Dose 40 MG; Start 10/21/18 at 12:00 Hydromorphone HCl (Dilaudid) 1.5 mg Q4H PRN IV SEVERE PAIN LEVEL 7-10 Last administered on 11/01/18 10:18; Admin Dose 1.5 MG; Start 10/22/18 at 12:30 Saccharomyces Boulardii (Florastor) 250 mg BID PO Last administered on 11/01/18 09:16; Admin Dose 250 MG; Start 10/23/18 at 21:00 IV Flush (NS 10 ml) 10 ml PRN PRN IV FLUSH LINE Last administered on 10/31/18at 09:24; Admin Dose 10 ML; Start 10/23/18 at 18:30 IV Flush (NS 10 ml) 10 ml PRN PRN IV FLUSH LINE; Start 10/27/18 at 18:30 Alteplase, Recombinant (Cathflo (Activase)) 2 mg MAY REPEAT X1 PRN CATHETER IF C ATHETER REMAINS OCCULUDED Last administered on 10/30/18at 10:45; Admin Dose 2 MG; Start 10/28/18 at 01:30 Vancomycin HCl 1.25 gm/Sodium Chloride 250 ml @ 83.333 mls/ hr Q12H IVPB Last administered on 11/01/18at 10:18; Admin Dose 83.333 MLS/HR; Start 10/28/18 at 10:00 NELLIE DWYER NP Nov 01, 2018 10:48
--- NOTE | 2018-11-01 13:42 | CONS ---
Assessment/Plan Assessment/Plan Hospital Course (Demo Recall) No acute events Abscess culture grew MRSA, alpha hemolytic and beta-hemolytic strep's, blood cultures grew staph on admission 1 out of 2 sets, repeat blood cultures pending Antimicrobials: Nileo Physical examination: Well-developed middle-aged white man who is alert in no distress. Head atraumatic normocephalic sclera nonicteric neck is supple chest rise symmetrical breath sounds clear heart S1-S2 abdomen soft bowel sounds present extremities with left shoulder wound VAC present erythema markedly improved Assessment: 1. Left shoulder abscess, status post I&D 2. Bacteremia 3. Systemic inflammatory response syndrome with resolving leukocytosis 4. IV drug abuse Plan: Remains stable, continue antibiotics for 2 more days, okay discharge on oral Clindamycin Consultation Date/Type/Reason Admit Date/Time Oct 20, 2018 at 13:01 Initial Consult Date 10/20/18 Type of Consult id Requesting Provider: JOSEPH ALCANTARA Date/Time of Note DATE: 11/01/18 TIME: 13:41 Exam/Review of Systems Exam Vitals Vital Signs Date Temp Pulse Resp B/P (MAP) Pulse Ox O2 O2 Flow FiO2 Time Delivery Rate 11/01/18 98.2 58 18 103/57 97 Room Air 07:59 (72) Intake and Output 10/31/18 10/31/18 11/01/18 1515:00 23:00 07:00 IntakeIntake Total 250 ml 700 ml 700 ml OutputOutput Total 1005 ml 1160 ml BalanceBalance 250 ml -305 ml -460 ml Results Result Diagram: 10/30/18 0433 11/01/18 0453 Results 24hrs Laboratory Tests Test 11/01/18 04:53 Blood Urea Nitrogen 20 Creatinine 0.96 Medications Medication Current Medications IV Flush (NS 3 ml) 3 ml PER PROTOCOL IV Last administered on 11/01/18at 09:17; Admin Dose 3 ML; Start 10/20/18 at 14:00 Acetaminophen (Tylenol Tab) 650 mg Q6H PRN PO .PAIN 1-3 OR TEMP Last administered on 10/24/18at 19:39; Admin Dose 650 MG; Start 10/20/18 at 14:00 Docusate Sodium (Colace) 100 mg Q12H PRN PO .CONSTIPATION; Start 10/20/18 at 14:00 Zolpidem Tartrate (Ambien) 5 mg QHS PRN PO .INSOMNIA Last administered on 10/22/18 03:01; Admin Dose 5 MG; Start 10/20/18 at 14:00 Vancomycin HCl (Vanco Iv Per Pharmacy) VANCOMYCIN PER PHARMACY PER PROTOCOL XX ; Start 10/20/18 at 14:00 Acetaminophen (Tylenol Tab) 650 mg Q6H PRN PO MILD PAIN(1-3)OR ELEVATED TEMP; Start 10/20/18 at 17:30 Ondansetron HCl (Zofran Inj) 4 mg Q6H PRN IV NAUSEA AND/OR VOMITING; Start 10/20/18 at 17:30 Diphenhydramine HCl (Benadryl) 25 mg Q6H PRN IV ITCHING Last administered on 11/01/18 11:12; Admin Dose 25 MG; Start 10/20/18 at 17:30 Methadone HCl (Methadone) 40 mg DAILY PO Last administered on 11/01/18 09:16; Admin Dose 40 MG; Start 10/21/18 at 12:00 Hydromorphone HCl (Dilaudid) 1.5 mg Q4H PRN IV SEVERE PAIN LEVEL 7-10 Last administered on 11/01/18 10:18; Admin Dose 1.5 MG; Start 10/22/18 at 12:30 Saccharomyces Boulardii (Florastor) 250 mg BID PO Last administered on 11/01/18 09:16; Admin Dose 250 MG; Start 10/23/18 at 21:00 IV Flush (NS 10 ml) 10 ml PRN PRN IV FLUSH LINE Last administered on 10/31/18 09:24; Admin Dose 10 ML; Start 10/23/18 at 18:30 IV Flush (NS 10 ml) 10 ml PRN PRN IV FLUSH LINE; Start 10/27/18 at 18:30 Alteplase, Recombinant (Cathflo (Activase)) 2 mg MAY REPEAT X1 PRN CATHETER IF CATHETER REMAINS OCCULUDED Last administered on 10/30/18 10:45; Admin Dose 2 MG; Start 10/28/18 at 01:30 Vancomycin HCl 1.25 gm/Sodium Chloride 250 ml @ 83.333 mls/ hr Q12H IVPB Last administered on 11/01/18 10:18; Admin Dose 83.333 MLS/HR; Start 10/28/18 at 10:00 SUNITA CROWELL NP Nov 01, 2018 13:42
[2018-11-01 13:58] VITALS: BP 127/65; PULSE 68; RESP 18
[2018-11-01 19:36] VITALS: BP 100/59; PULSE 67; RESP 16
[2018-11-02 02:35] VITALS: BP 100/67; PULSE 65; RESP 16
[2018-11-02] MEDS: HYDROmorphONE 2 MG/ML SYG IV PRN ×5 (03:38→21:28)
[2018-11-02] MEDS: DIPHENHYDRAMINE 50 MG INJ IV PRN ×3 (06:21→20:22)
[2018-11-02 07:41] VITALS: BP 103/62; PULSE 64; RESP 20
[2018-11-02] MEDS: SACCHAROMYCES BOULARDII 250 MG CAP PO SCH ×2 (08:32→20:22)
[2018-11-02] MEDS: METHADONE 10 MG TAB PO SCH (08:33)
[2018-11-02] MEDS: VANCOMYCIN HCL 1.25 GM in SOD CHLORIDE 0.9% 250 ML IVPB SCH ×2 (09:40→22:52)
--- NOTE | 2018-11-02 09:45 | CONS ---
Assessment/Plan Assessment/Plan Assessment/Plan (Daily) Left shoulder abscess History of heroin abuse Currently on methadone treatment Status post debridement left shoulder abscess This point history obtained from patient and from his mother patient is on appropriate methadone coverage however I have discontinue Varney morphine IV and explained to him that combination of the low-dose Dilaudid orally and the methadone he is receiving should cover him for pain as well as withdrawal. Consultation Date/Type/Reason Admit Date/Time Oct 20, 2018 at 13:01 Date/Time of Note DATE: 11/02/18 TIME: 09:41 Hx of Present Illness 28-year-old gentleman with a history of IV drug abuse states his last use many years ago he denies use of any street drugs however presented to [facility] with left shoulder abscess. Status post debridement currently on IV antibiotics no history of current withdrawal current pain control medications include Varney morphine Dilaudid and methadone. Patient is not withdrawing. He is not negotiating for higher dose of pain control medication he states it is pain management and his pain does not interfere with his physical functioning and mood sleeping pattern. He is not negotiating for higher dose of pain control medication she is a non-smoker nondrinker area been incarcerated in the past denies a history of any other drug use including cocaine crystal methamphetamine ecstasy. Not complaining of nausea vomiting fever chills cough shortness of breath mental cloudiness sweating itchiness pain is controlled right now states it is a 7/10 with current pain control medications. He does not appear to be unkempt or intoxicated he has not asked for frequent renewals of his pain control medications or specific pain control medications I do not get the impression he is using pain control medication response to physical stress although patient visually appears to be very comfortable at this time area Past Medical History Medical History: other (History of the IV drug abuse) Home Meds Reported Medications Methadone Hcl* (Methadone Hcl*) 10 Mg/5 Ml Solution, 60 MG PO DAILY, ML 10/20/18 Medications Current Medications IV Flush (NS 3 ml) 3 ml PER PROTOCOL IV Last administered on 11/01/18at 09:17; Admin Dose 3 ML; Start 10/20/18 at 14:00 Acetaminophen (Tylenol Tab) 650 mg Q6H PRN PO .PAIN 1-3 OR TEMP Last administered on 10/24/18at 19:39; Admin Dose 650 MG; Start 10/20/18 at 14:00 Docusate Sodium (Colace) 100 mg Q12H PRN PO .CONSTIPATION; Start 10/20/18 at 14:00 Zolpidem Tartrate (Ambien) 5 mg QHS PRN PO .INSOMNIA Last administered on 10/22/18 03:01; Admin Dose 5 MG; Start 10/20/18 at 14:00 Vancomycin HCl (Vanco Iv Per Pharmacy) VANCOMYCIN PER PHARMACY PER PROTOCOL XX ; Start 10/20/18 at 14:00 Acetaminophen (Tylenol Tab) 650 mg Q6H PRN PO MILD PAIN(1-3)OR ELEVATED TEMP; Start 10/20/18 at 17:30 Ondansetron HCl (Zofran Inj) 4 mg Q6H PRN IV NAUSEA AND/OR VOMITING; Start 10/20/18 at 17:30 Diphenhydramine HCl (Benadryl) 25 mg Q6H PRN IV ITCHING Last administered on 11/02/18at 06:21; Admin Dose 25 MG; Start 10/20/18 at 17:30 Methadone HCl (Methadone) 40 mg DAILY PO Last administered on 11/02/18 08:33; Admin Dose 40 MG; Start 10/21/18 at 12:00 Hydromorphone HCl (Dilaudid) 1.5 mg Q4H PRN IV SEVERE PAIN LEVEL 7-10 Last administered on 11/02/18 08:32; Admin Dose 1.5 MG; Start 10/22/18 at 12:30 Saccharomyces Boulardii (Florastor) 250 mg BID PO Last administered on 11/02/18 08:32; Admin Dose 250 MG; Start 10/23/18 at 21:00 IV Flush (NS 10 ml) 10 ml PRN PRN IV FLUSH LINE Last administered on 10/31/18at 09:24; Admin Dose 10 ML; Start 10/23/18 at 18:30 IV Flush (NS 10 ml) 10 ml PRN PRN IV FLUSH LINE; Start 10/27/18 at 18:30 Alteplase, Recombinant (Cathflo (Activase)) 2 mg MAY REPEAT X1 PRN CATHETER IF CATHETER REMAINS OCCULUDED Last administered on 10/30/18at 10:45; Admin Dose 2 MG; Start 10/28/18 at 01:30 Vancomycin HCl 1.25 gm/Sodium Chloride 250 ml @ 83.333 mls/ hr Q12H IVPB Last administered on 11/01/18at 22:08; Admin Dose 83.333 MLS/HR; Start 10/28/18 at 10:00 Allergies: Coded Allergies: No Known Allergy (Unverified , 10/20/18) Past Surgical History Past Surgical Hx: other (Knee surgery) Social History Alcohol Use: rarely Smoking Status: Never smoker Drug Use: heroin (History of heroin) Exam/Review of Systems Exam Vitals Vital Signs Date Temp Pulse Resp B/P (MAP) Pulse Ox O2 O2 Flow FiO2 Time Delivery Rate 11/02/18 98.4 64 20 103/62 97 07:41 (76) 11/01/18 Room Air 13:58 Intake and Output 11/01/18 11/01/18 11/02/18 1515:00 23:00 07:00 IntakeIntake Total 580 ml 440 ml 250 ml OutputOutput Total 800 ml 800 ml 0 ml BalanceBalance -220 ml -360 ml 250 ml Constitutional: alert, oriented, well developed Head: normocephalic, atraumatic Respiratory: clear to auscultation, normal air movement Cardiovascular: regular rate and rhythm, nl pulses Neurological: COLLECTIONS ASSISTANT II-XII intact, nl mental status, nl speech, nl strength Results Result Diagram: 10/30/18 0433 11/01/18 0453 Medications Medication Current Medications IV Flush (NS 3 ml) 3 ml PER PROTOCOL IV Last administered on 11/01/18at 09:17; Admin Dose 3 ML; Start 10/20/18 at 14:00 Acetaminophen (Tylenol Tab) 650 mg Q6H PRN PO .PAIN 1-3 OR TEMP Last administered on 10/24/18at 19:39; Admin Dose 650 MG; Start 10/20/18 at 14:00 Docusate Sodium (Colace) 100 mg Q12H PRN PO .CONSTIPATION; Start 10/20/18 at 14:00 Zolpidem Tartrate (Ambien) 5 mg QHS PRN PO .INSOMNIA Last administered on 10/22/18at 03:01; Admin Dose 5 MG; Start 10/20/18 at 14:00 Vancomycin HCl (Vanco Iv Per Pharmacy) VANCOMYCIN PER PHARMACY PER PROTOCOL XX ; Start 10/20/18 at 14:00 Acetaminophen (Tylenol Tab) 650 mg Q6H PRN PO MILD PAIN(1-3)OR ELEVATED TEMP; Start 10/20/18 at 17:30 Ondansetron HCl (Zofran Inj) 4 mg Q6H PRN IV NAUSEA AND/OR VOMITING; Start 10/20/18 at 17:30 Diphenhydramine HCl (Benadryl) 25 mg Q6H PRN IV ITCHING Last administered on 06:21; Admin Dose 25 MG; Start 10/20/18 at 17:30 Methadone HCl (Methadone) 40 mg DAILY PO Last administered on 11/02/18 08:33; Admin Dose 40 MG; Start 10/21/18 at 12:00 Hydromorphone HCl (Dilaudid) 1.5 mg Q4H PRN IV SEVERE PAIN LEVEL 7-10 Last administered on 11/02/18 08:32; Admin Dose 1.5 MG; Start 10/22/18 at 12:30 Saccharomyces Boulardii (Florastor) 250 mg BID PO Last administered on 11/02/18 08:32; Admin Dose 250 MG; Start 10/23/18 at 21:00 IV Flush (NS 10 ml) 10 ml PRN PRN IV FLUSH LINE Last administered on 10/31/18 09:24; Admin Dose 10 ML; Start 10/23/18 at 18:30 IV Flush (NS 10 ml) 10 ml PRN PRN IV FLUSH LINE; Start 10/27/18 at 18:30 Alteplase, Recombinant (Cathflo (Activase)) 2 mg MAY REPEAT X1 PRN CATHETER IF CATHETER REMAINS OCCULUDED Last administered on 10/30/18at 10:45; Admin Dose 2 MG; Start 10/28/18 at 01:30 Vancomycin HCl 1.25 gm/Sodium Chloride 250 ml @ 83.333 mls/ hr Q12H IVPB Last administered on 11/01/18 22:08; Admin Dose 83.333 MLS/HR; Start 10/28/18 at 10:00 RAFITA PAYNE Nov 02, 2018 09:45
--- NOTE | 2018-11-02 10:13 | PN ---
Date/Time of Note Date/Time of Note DATE: 11/02/18 TIME: 10:07 Assessment/Plan VTE Prophylaxis SCD applied (from Nsg): Yes Pharmacological prophylaxis: NA/contraindicated Pharm contraindication: low risk/ambulating Lines/Catheters IV Catheter Type (from Nrsg): PICC Line Urinary Cath still in place: No Assessment/Plan Hospital Course 1. Sepsis with leukocytosis and febrile illness secondary to left, abscess, present on admission. - Fluid culture growing-beta and alpha-hemolytic Streptococcus along with MRSA. - abx per ID - plan for clindamycin upon dc 2. Left shoulder abscess. - Status post incision and drainage on 10/20/2018. - continue wound vac - Continue wound care as per general surgery. - Awaiting [facility] set up with wound vac for home 3. Normocytic anemia. - monitor H&H - stable at present 4. History of heroin abuse. - Patient has been clean for the past several months and is on methadone. - Continue methadone. Disposition and plan. Continue with antibiotics and wound care. Awaiting for transition to outpatient with wound VAC. Per case management, has been difficult to establish [facility] agency to accommodate wound vac needs for patient. pain man agement consult following. continue with recommendations. continue supportive care for now. continue current tx Discussed plan of care with Dr. Lopez Result Diagram: 10/30/18 0433 11/01/18 0453 Subjective 24 Hr Interval Summary Free Text/Dictation comfortable at present. no specific complaints Exam/Review of Systems Exam Vitals Vital Signs Date Temp Pulse Resp B/P (MAP) Pulse Ox O2 O2 Flow FiO2 Time Delivery Rate 11/02/18 98.4 64 20 103/62 97 07:41 (76) 11/01/18 Room Air 13:58 Intake and Output 11/01/18 11/01/18 11/02/18 1515:00 23:00 07:00 IntakeIntake Total 580 ml 440 ml 250 ml OutputOutput Total 800 ml 800 ml 0 ml BalanceBalance -220 ml -360 ml 250 ml Exam Constitutional: alert, oriented Psych: nl mood/affect Head: normocephalic Respiratory: clear to auscultation, normal air movement Cardiovascular: other (regular rate ) Gastrointestinal: soft, non-tender Musculoskeletal: other (wound vac left deltoid ) Neurological: DIRECTOR OPERATIONS BROADCAST II-XII intact, nl mental status, nl speech Skin: other (wound vac left arrm ) Medications Medication Current Medications IV Flush (NS 3 ml) 3 ml PER PROTOCOL IV Last administered on 11/01/18 09:17; Admin Dose 3 ML; Start 10/20/18 at 14:00 Acetaminophen (Tylenol Tab) 650 mg Q6H PRN PO .PAIN 1-3 OR TEMP Last administered on 10/24/18 19:39; Admin Dose 650 MG; Start 10/20/18 at 14:00 Docusate Sodium (Colace) 100 mg Q12H PRN PO .CONSTIPATION; Start 10/20/18 at 14:00 Zolpidem Tartrate (Ambien) 5 mg QHS PRN PO .INSOMNIA Last administered on 10/22/18 03:01; Admin Dose 5 MG; Start 10/20/18 at 14:00 Vancomycin HCl (Vanco Iv Per Pharmacy) VANCOMYCIN PER PHARMACY PER PROTOCOL XX ; Start 10/20/18 at 14:00 Acetaminophen (Tylenol Tab) 650 mg Q6H PRN PO MILD PAIN(1-3)OR ELEVATED TEMP; Start 10/20/18 at 17:30 Ondansetron HCl (Zofran Inj) 4 mg Q6H PRN IV NAUSEA AND/OR VOMITING; Start 10/20/18 at 17:30 Diphenhydramine HCl (Benadryl) 25 mg Q6H PRN IV ITCHING Last administered on 11/02/18 06:21; Admin Dose 25 MG; Start 10/20/18 at 17:30 Methadone HCl (Methadone) 40 mg DAILY PO Last administered on 11/02/18 08:33; Admin Dose 40 MG; Start 10/21/18 at 12:00 Hydromorphone HCl (Dilaudid) 1.5 mg Q4H PRN IV SEVERE PAIN LEVEL 7-10 Last administered on 11/02/18 08:32; Admin Dose 1.5 MG; Start 10/22/18 at 12:30 Saccharomyces Boulardii (Florastor) 250 mg BID PO Last administered on 11/02/18 08:32; Admin Dose 250 MG; Start 10/23/18 at 21:00 IV Flush (NS 10 ml) 10 ml PRN PRN IV FLUSH LINE Last administered on 10/31/18 09:24; Admin Dose 10 ML; Start 10/23/18 at 18:30 IV Flush (NS 10 ml) 10 ml PRN PRN IV FLUSH LINE; Start 10/27/18 at 18:30 Alteplase, Recombinant (Cathflo (Activase)) 2 mg MAY REPEAT X1 PRN CATHETER IF CATHETER REMAINS OCCULUDED Last administered on 10/30/18at 10:45; Admin Dose 2 MG; Start 10/28/18 at 01:30 Vancomycin HCl 1.25 gm/Sodium Chloride 250 ml @ 83.333 mls/ hr Q12H IVPB Last administered on 11/02/18at 09:40; Admin Dose 83.333 MLS/HR; Start 10/28/18 at 10:00 NELLIE DWYER NP Nov 02, 2018 10:13
[2018-11-02 13:50] VITALS: BP 116/70; PULSE 60; RESP 20
[2018-11-02 19:58] VITALS: BP 121/69; PULSE 72; RESP 18
[2018-11-03] MEDS: HYDROmorphONE 2 MG/ML SYG IV PRN ×6 (02:05→22:36)
[2018-11-03 02:18] VITALS: BP 102/65; PULSE 76; RESP 18
[2018-11-03] MEDS: DIPHENHYDRAMINE 50 MG INJ IV PRN ×4 (03:20→22:36)
[2018-11-03 07:45] VITALS: BP 99/65; PULSE 61; RESP 20
[2018-11-03] MEDS: METHADONE 10 MG TAB PO SCH (08:53)
[2018-11-03] MEDS: SACCHAROMYCES BOULARDII 250 MG CAP PO SCH ×2 (08:53→20:46)
[2018-11-03] MEDS: VANCOMYCIN HCL 1.25 GM in SOD CHLORIDE 0.9% 250 ML IVPB SCH ×2 (10:00→13:08)
[2018-11-03] MEDS: ALTEPLASE (CATHFLO) 2 MG INJ CATHETER PRN (11:35)
[2018-11-03 13:04] VITALS: BP 120/69; PULSE 69; RESP 20
--- NOTE | 2018-11-03 13:51 | PN ---
Date/Time of Note Date/Time of Note DATE: 11/03/18 TIME: 13:49 Assessment/Plan VTE Prophylaxis SCD applied (from Nsg): Yes Pharmacological prophylaxis: NA/contraindicated Pharm contraindication: low risk/ambulating Lines/Catheters IV Catheter Type (from Nrsg): PICC Line Urinary Cath still in place: No Assessment/Plan Hospital Course 1. Sepsis with leukocytosis and febrile illness secondary to left, abscess, present on admission. - Fluid culture growing-beta and alpha-hemolytic Streptococcus along with MRSA. - abx per ID 2. Left shoulder abscess. - Status post incision and drainage on 10/20/2018. - continue wound vac - Continue wound care as per general surgery. - Awaiting [facility] set up with wound vac for home 3. Normocytic anemia. - monitor H&H - stable at present 4. History of heroin abuse. - Patient has been clean for the past several months and is on methadone. - Continue methadone. Disposition and plan. Continue with antibiotics and wound care. Awaiting for transition to outpatient with wound VAC. Per case management, has been difficult to establish [facility] agency to accommodate wound vac needs for patient. pain management consult following. continue with recommendations. continue supportive care for now. continue current tx . Check AM labs Discussed plan of care with Dr. Lopez Result Diagram: 10/30/18 0433 11/01/18 0453 Subjective 24 Hr Interval Summary Free Text/Dictation comfortable at present. no specific complaints Exam/Review of Systems Exam Vitals Vital Signs Date Temp Pulse Resp B/P (MAP) Pulse Ox O2 O2 Flow FiO2 Time Delivery Rate 11/03/18 98.1 69 20 120/69 96 13:04 (86) 11/01/18 Room Air 13:58 Intake and Output 11/02/18 11/02/18 11/03/18 1414:59 22:59 06:59 IntakeIntake Total 1690 ml 1000 ml 250 ml OutputOutput Total 2250 ml 1450 ml 0 ml BalanceBalance -560 ml -450 ml 250 ml Exam Constitutional: alert, oriented Psych: nl mood/affect Head: normocephalic Respiratory: clear to auscultation, normal air movement Cardiovascular: other (regular rate ) Gastrointestinal: soft, non-tender Musculoskeletal: other (wound vac left deltoid ) Neurological: SWITCH MAKER II-XII intact, nl mental status, nl speech Skin: other (wound vac left arrm ) Medications Medication Current Medications IV Flush (NS 3 ml) 3 ml PER PROTOCOL IV Last administered on 11/01/18 09:17; Admin Dose 3 ML; Start 10/20/18 at 14:00 Acetaminophen (Tylenol Tab) 650 mg Q6H PRN PO .PAIN 1-3 OR TEMP Last administered on 10/24/18at 19:39; Admin Dose 650 MG; Start 10/20/18 at 14:00 Docusate Sodium (Colace) 100 mg Q12H PRN PO .CONSTIPATION; Start 10/20/18 at 14:00 Zolpidem Tartrate (Ambien) 5 mg QHS PRN PO .INSOMNIA Last administered on 10/22/18 03:01; Admin Dose 5 MG; Start 10/20/18 at 14:00 Vancomycin HCl (Vanco Iv Per Pharmacy) VANCOMYCIN PER PHARMACY PER PROTOCOL XX ; Start 10/20/18 at 14:00 Acetaminophen (Tylenol Tab) 650 mg Q6H PRN PO MILD PAIN(1-3)OR ELEVATED TEMP; Start 10/20/18 at 17:30 Ondansetron HCl (Zofran Inj) 4 mg Q6H PRN IV NAUSEA AND/OR VOMITING; Start 10/20/18 at 17:30 Diphenhydramine HCl (Benadryl) 25 mg Q6H PRN IV ITCHING Last administered on 11/03/18 10:30; Admin Dose 25 MG; Start 10/20/18 at 17:30 Methadone HCl (Methadone) 40 mg DAILY PO Last administered on 11/03/18 08:53; Admin Dose 40 MG; Start 10/21/18 at 12:00 Hydromorphone HCl (Dilaudid) 1.5 mg Q4H PRN IV SEVERE PAIN LEVEL 7-10 Last administered on 11/03/18 10:31; Admin Dose 1.5 MG; Start 10/22/18 at 12:30 Saccharomyces Boulardii (Florastor) 250 mg BID PO Last administered on 11/03/18 08:53; Admin Dose 250 MG; Start 10/23/18 at 21:00 IV Flush (NS 10 ml) 10 ml PRN PRN IV FLUSH LINE Last administered on 11/02/18 21:29; Admin Dose 10 ML; Start 10/23/18 at 18:30 IV Flush (NS 10 ml) 10 ml PRN PRN IV FLUSH LINE; Start 10/27/18 at 18:30 Alteplase, Recombinant (Cathflo (Activase)) 2 mg MAY REPEAT X1 PRN CATHETER IF CATHETER REMAINS OCCULUDED Last administered on 11/03/18at 11:35; Admin Dose 2 MG; Start 10/28/18 at 01:30 Vancomycin HCl 1.25 gm/Sodium Chloride 250 ml @ 83.333 mls/ hr Q12H IVPB Last administered on 11/03/18at 13:08; Admin Dose 83.333 MLS/HR; Start 10/28/18 at 10:00 NELLIE DWYER NP Nov 03, 2018 13:51
[2018-11-03 19:32] VITALS: BP 116/65; PULSE 82; RESP 16
[2018-11-04] MEDS: VANCOMYCIN HCL 1.25 GM in SOD CHLORIDE 0.9% 250 ML IVPB SCH ×2 (01:11→13:27)
[2018-11-04 01:24] VITALS: BP 111/68; PULSE 71; RESP 16
[2018-11-04] MEDS: HYDROmorphONE 2 MG/ML SYG IV PRN ×3 (04:43→13:19)
[2018-11-04] MEDS: DIPHENHYDRAMINE 50 MG INJ IV PRN ×2 (04:43→13:19)
[2018-11-04 07:46] VITALS: BP 101/64; PULSE 74; RESP 20
[2018-11-04] MEDS: SACCHAROMYCES BOULARDII 250 MG CAP PO SCH (08:57)
[2018-11-04] MEDS: METHADONE 10 MG TAB PO SCH (09:54)
--- NOTE | 2018-11-04 13:38 | CONS ---
Assessment/Plan Assessment/Plan Hospital Course (Demo Recall) Alert, feels good Abscess culture grew MRSA, alpha hemolytic and beta-hemolytic strep's, blood cultures grew staph on admission 1 out of 2 sets, repeat blood cultures pending Antimicrobials: Vanco Physical examination: Well-developed middle-aged white man who is alert in no distress. Head atraumatic normocephalic sclera nonicteric neck is supple chest rise symmetrical breath sounds clear heart S1-S2 abdomen soft bowel sounds present extremities with left shoulder wound VAC present erythema markedly improved Assessment: 1. Left shoulder abscess, status post I&D 2. Bacteremia 3. Systemic inflammatory response syndrome with resolving leukocytosis 4. IV drug abuse Plan: Remains stable, dc abx, continue wound care per surgery Consultation Date/Type/Reason Admit Date/Time Oct 20, 2018 at 13:01 Initial Consult Date 10/20/18 Type of Consult id Requesting Provider: JOSEPH ALCANTARA Date/Time of Note DATE: 11/04/18 TIME: 13:38 Exam/Review of Systems Exam Vitals Vital Signs Date Temp Pulse Resp B/P (MAP) Pulse Ox O2 O2 Flow FiO2 Time Delivery Rate 11/04/18 97.4 74 20 101/64 97 07:46 (76) 11/01/18 Room Air 13:58 Intake and Output 11/03/18 11/03/18 11/04/18 1515:00 23:00 07:00 IntakeIntake Total 2110 ml 850 ml 850 ml OutputOutput Total 2425 ml 400 ml 1400 ml BalanceBalance -315 ml 450 ml -550 ml Results Result Diagram: 11/04/18 0451 11/04/18 0451 Results 24hrs Laboratory Tests Test 11/03/18 20:47 11/04/18 04:51 11/04/18 11:45 Blood Urea Nitrogen 19 18 Creatinine 1.05 0.96 White Blood Count 6.1 # Red Blood Count 4.31 L Hemoglobin 12.3 L Hematocrit 37.7 L Mean Corpuscular Volume 87.5 Mean Corpuscular Hemoglobin 28.5 L Mean Corpuscular Hemoglobin Concent 32.6 Red Cell Distribution Width 13.1 Platelet Count 279 Mean Platelet Volume 10.1 Immature Granulocytes % 0.300 Neutrophils % 46.6 Lymphocytes % 35.2 Monocytes % 12.2 H Eosinophils % 4.2 Basophils % 1.5 Nucleated Red Blood Cells % 0.0 Immature Granulocytes # 0.020 Neutrophils # 2.9 Lymphocytes # 2.2 Monocytes # 0.8 Eosinophils # 0.3 Basophils # 0.1 Nucleated Red Blood Cells # 0.0 Sodium Level 141 Potassium Level 4.3 Chloride Level 103 Carbon Dioxide Level 27 Anion Gap 11 Est Glomerular Filtrat Rate mL/min > 60 Glucose Level 77 Calcium Level 8.9 Vancomycin Level Trough 12.9 Medications Medication Current Medications IV Flush (NS 3 ml) 3 ml PER PROTOCOL IV Last administered on 11/01/18 09:17; Admin Dose 3 ML; Start 10/20/18 at 14:00 Acetaminophen (Tylenol Tab) 650 mg Q6H PRN PO .PAIN 1-3 OR TEMP Last administered on 10/24/18 19:39; Admin Dose 650 MG; Start 10/20/18 at 14:00 Docusate Sodium (Colace) 100 mg Q12H PRN PO .CONSTIPATION; Start 10/20/18 at 14: 00 Zolpidem Tartrate (Ambien) 5 mg QHS PRN PO .INSOMNIA Last administered on 10/22/18at 03:01; Admin Dose 5 MG; Start 10/20/18 at 14:00 Vancomycin HCl (Vanco Iv Per Pharmacy) VANCOMYCIN PER PHARMACY PER PROTOCOL XX ; Start 10/20/18 at 14:00 Acetaminophen (Tylenol Tab) 650 mg Q6H PRN PO MILD PAIN(1-3)OR ELEVATED TEMP; Start 10/20/18 at 17:30 Ondansetron HCl (Zofran Inj) 4 mg Q6H PRN IV NAUSEA AND/OR VOMITING; Start 10/20/18 at 17:30 Diphenhydramine HCl (Benadryl) 25 mg Q6H PRN IV ITCHING Last administered on 11/04/18 13:19; Admin Dose 25 MG; Start 10/20/18 at 17:30 Methadone HCl (Methadone) 40 mg DAILY PO Last administered on 11/04/18at 09:54; Admin Dose 40 MG; Start 10/21/18 at 12:00 Hydromorphone HCl (Dilaudid) 1.5 mg Q4H PRN IV SEVERE PAIN LEVEL 7-10 Last administered on 11/04/18 13:19; Admin Dose 1.5 MG; Start 10/22/18 at 12:30 Saccharomyces Boulardii (Florastor) 250 mg BID PO Last administered on 11/04/18at 08:57; Admin Dose 250 MG; Start 10/23/18 at 21:00 IV Flush (NS 10 ml) 10 ml PRN PRN IV FLUSH LINE Last administered on 11/02/18at 21:29; Admin Dose 10 ML; Start 10/23/18 at 18:30 IV Flush (NS 10 ml) 10 ml PRN PRN IV FLUSH LINE; Start 10/27/18 at 18:30 Alteplase, Recombinant (Cathflo (Activase)) 2 mg MAY REPEAT X1 PRN CATHETER IF CATHETER REMAINS OCCULUDED Last administered on 11/03/18at 11:35; Admin Dose 2 MG; Start 10/28/18 at 01:30 Vancomycin HCl 1.25 gm/Sodium Chloride 250 ml @ 83.333 mls/ hr Q12H IVPB Last administered on 11/04/18at 13:27; Admin Dose 83.333 MLS/HR; Start 11/04/18 at 01:00 SUNITA CROWELL NP Nov 04, 2018 13:38
[2018-11-04 14:02] VITALS: BP 117/74; PULSE 72; RESP 20
--- NOTE | 2018-11-04 17:46 | DS ---
Date/Time of Note Date/Time of Note DATE: 11/04/18 TIME: 17:44 Discharge Summary Admission/Discharge Info Admit Date/Time Oct 20, 2018 at 13:01 Discharge Date/Time Discharge Diagnosis 1. S/P sepsis with leukocytosis and febrile illness secondary to left deltoid abscess, present on admission. 2. Left deltoid abscess. 3. Normocytic anemia. 4. History of heroin abuse. Patient Condition: Stable Consults 1. Jatinder Colvin MD, Infectious Diseases. 2. Yared Matthew MD, General Surgery. Procedures Operative Report Procedure Date: Oct 20, 2018 Preoperative Diagnosis Left shoulder abscess Postoperative Diagnosis Left shoulder abscess Operation/Procedure Performed Incision and drainage of the left shoulder abscess. Negative pressure dressing applied. Wound pulse irrigation. Left Upper Extremity CT IMPRESSION: Left deltoid abscess extending 13 cm in craniocaudal dimension. 2D Echocardiogram Conclusions: Normal left ventricular systolic function. Normal left ventricular cavity size. Normal left ventricular wall thickness. Ejection fraction is visually estimated at 60 %. Tissue Doppler/Mitral Doppler indices are consistent with restrictive physiology with markedly elevated left atrial pressure (Stage III-IV diastolic dysfunction). Normal appearance and function of the mitral valve with trace physiologic regurgitation. No evidence of endocarditis. No significant aortic stenosis or insufficiency. Aortic cusps appear mildly calcified. No evidence of endocarditis. Normal appearance of the tricuspid valve. The estimated Peak RVSP is 31 mmHg. There is mild tricuspid regurgitation. No evidence of endocarditis. Hx of Present Illness This is a 28-year-old male with a prior history of IV drug abuse who has been clean for several months and is on methadone who came to the emergency room with a spontaneously developed left shoulder abscess with evidence of sepsis with leukocytosis, and tachycardia secondary to underlying left arm abscess who was admitted to inpatient setting. Hospital Course The patient was started on empiric antimicrobials including coverage for MRSA. The patient had evidence of underlying sepsis with leukocytosis and febrile illness secondary to left deltoid abscess. A general surgery consult and ID consult was obtained. The patient underwent an incision and drainage of the left deltoid abscess on 10/20/2018 with placement of negative pressure therapy. The patient's wound culture was positive for polymicrobials including MRSA. He was maintained on antimicrobials as per infectious diseases. The patient has prior history of heroin abuse. However, the patient reported he has been clean for the past several months and has been on methadone. The patient denied injecting any heroin to the affected area and he verbalized that the abscess developed spontaneously. The patient had a PICC line inserted during the hospital stay for repeated blood drawa and provision of antimicrobial therapy since the patient had very poor IV access. However, upon discharge, the patient's PICC line was discontinued. The patient was cleared by ID to be discharged home on p.o. antibiotics. However, because of the patient's wound VAC therapy, it was difficult in getting home health in a timely fashion. Therefore, the patient waited until the wound VAC therapy was done for the recommended duration as per general surgery before it was discontinued on 11/04/2018. Meanwhile, the patient also had finished his antibiotic course. Therefore, the patient will be discharged home with instructions provided for the left upper extremity wound dressing changes with wet to dry dressing on a daily basis. The patient verbalized that his mother is a nurse who will be able to assist him with the daily dressing changes. The patient will follow up with the surgeon next week. The patient has underlying normocytic anemia. This could be anemia chronic disease. The patient's H&H remained closely. As mentioned earlier, he has prior history of heroin abuse and he was maintained on methadone. The patient was also provided with opioids too because of the significant pain that he was having in the deltoid area. The patient was also evaluated by pain management team during this hospitalization. The patient had a stable, but prolonged hospital course because of inability to provide home health for outpatient negative pressure therapy of the wound. The patient was cleared by all the consultants to be discharged home on 11/04/2018. At this time I would like to thank all the consultants for seeing the patient, doing the necessary procedures and providing clinical recommendations. The patient was seen in collaboration with Dr. Larios. Home Meds Reported Medications Methadone Hcl* (Methadone Hcl*) 10 Mg/5 Ml Solution, 60 MG PO DAILY, ML 10/20/18 Follow-up Plan 1. Follow up with Dr. Yared Matthew in one week Office Address [address] [place] [address] Office Primary Care Provider Care Physician No Primary Time spent on discharge: > 30 minutes Pending Labs RUN DATE: 10/24/18 [facility] PAGE 1 RUN TIME: [id number] [place] [address] Dung Gudino M.D. [employer] Miguel Ángel Astudillo M.D. [employer] DANAROSALVA#: [id number] Name: DUNG POOL Age/Sex: 28/M Attend Dr: JOSEPH ALCANTARA Acct: [id number] MR# : [id number] : 1990 Location: [facility] 2272-A Admit: 10/20/18 Specimen: [id number] Status: Complete Geovanna: 10/20/18-1612 Rcvd: 10/20/18-1639 Source: JEANNETTE Sp Descrip: ----- Procedure Result Microbiology GRAM STAIN Final POLYMORPH. LEUKOCYTE 1+ GRAM POS COCCI IN PAIRS 1+ WOUND CULTURE Final Organism 1 METHICILLIN RESISTANT S.AUREUS QUANTITY RARE . MULTI DRUG RESISTANT ORGANISM Organism 2 ALPHA HEMOLYTIC STREP SPP QUANTITY 2+ . VIRIDANS GROUP Organism 3 STREP BETA HEMOLYTIC-GROUP F QUANTITY SCANT GROWTH PHONED TO IWONA WALKER AT 0946 10/23/18 BY AD. NOTIFIED JOCE READ, SILVERIO, IC AT 1000 10/23/18 BY AD. MRSA ALPHA HEMO M.I.C. RX M.I.C. RX --------- --- --------- --- CEFAZOLIN R CEFOTAXIME 0.19 S CIPROFLOXACIN >=8 R CLINDAMYCIN <=0.25 S DOXYCYCLINE S ERYTHROMYCIN >=8 R LEVOFLOXACIN 4 R OXACILLIN >=4 R PENICILLIN 0.023 S PENICILLIN-G >=0.5 R RIFAMPIN <=0.5 S VANCOMYCIN 1 S 1 S ................................................................................ ............ Flags: Critical Hi = *H Critical Lo = *L Microbiology Abnormal = * Abnormal Hi = H Abnormal Lo = L Blood Bank Abnormal = * Susceptability Flags: S = Sensitive R = Resistant I = Intermediate CONTINUED ON NEXT PAGE RUN DATE: 10/24/18 [facility] PAGE 2 RUN TIME: [id number] [place] [address] Dung Gudino M.D. [employer] Miguel Ángel Astudillo M.D. [employer] JONI#: [id number] Patient: DUNG POOL [id number] Specimen: [id number] Collected: 10/20/18-1611 Received: 10/20/18-1640 (Continued) Procedure Result WOUND CULTURE Final (continued) MRSA ALPHA HEMO M.I.C. RX M.I.C. RX --------- --- --------- --- TRIMETHOPRIM/SULFAMETHOXAZOLE <=10 S ALPHA HEMO STREP BETA Zone Size RX Zone Size RX --------- --- --------- --- * CEFOTAXIME S * CLINDAMYCIN S S * ERYTHROMYCIN S S * PENICILLIN S * VANCOMYCIN S ------ ...................................... ..................................................... Flags: Critical Hi = *H Critical Lo = *L Microbiology Abnormal = * Abnormal Hi = H Abnormal Lo = L Blood Bank Abnormal = * Susceptability Flags: S = Sensitive R = Resistant I = Intermediate END OF REPORT Laboratory Tests Test 11/03/18 20:47 11/04/18 04:51 11/04/18 11:45 Blood Urea 19 mg/dl (7-20) 18 mg/dl (7-20) Nitrogen Creatinine 1.05 0.96 mg/dl (0.61-1.24) mg/dl (0.61-1.24) White Blood Count 6.1 10^3/ul (4.8-10.8) Red Blood Count 4.31 10^6/ul (4.70-6.10 ) Hemoglobin 12.3 g/dl (14.0-18.0) Hematocrit 37.7 % (42.0-52.0) Mean Corpuscular 87.5 Volume fl (82.0-101.0) Mean Corpuscular 28.5 Hemoglobin pg (29.0-33.0) Mean Corpuscular 32.6 Hemoglobin Concent g/dl (32.0-37.0) Red Cell 13.1 % (11.5-14.5) Distribution Width Platelet Count 279 10^3/UL (140-415) Mean Platelet 10.1 fl (7.4-10.4) Volume Immature 0.300 Granulocytes % % (0.001-0.429) Neutrophils % 46.6 % (39.0-77.0) Lymphocytes % 35.2 % (15.0-51.0) Monocytes % 12.2 % (0.0-11.0) Eosinophils % 4.2 % (0.0-7.0) Basophils % 1.5 % (0.0-2.0) Nucleated Red Blood 0.0 Cells % /100WBC (0.0-0.0) Immature 0.020 Granulocytes # 10^3/ul (0.0-0.031 ) Neutrophils # 2.9 10^3/ul (1.6-7.5) Lymphocytes # 2.2 10^3/ul (0.8-2.9) Monocytes # 0.8 10^3/ul (0.3-0.9) Eosinophils # 0.3 10^3/ul (0.0-0.5) Basophils # 0.1 10^3/ul (0.0-0.1) Nucleated Red Blood 0.0 Cells # 10^3/ul (0.0-0.0) Sodium Level 141 mmol/L (135-144) Potassium Level 4.3 mmol/L (3.5-5.1) Chloride Level 103 mmol/L (97-110) Carbon Dioxide 27 mmol/L (21-31) Level Anion Gap 11 (5-13) Est Glomerular > 60 mL/min (>60) Filtrat Rate mL/min Glucose Level 77 mg/dl (70-220) Calcium Level 8.9 mg/dl (8.4-10.2) Vancomycin Level 12.9 Trough ug/ml (10.0-20.0) BRIGETTE REYNA NP Nov 04, 2018 17:46
== END 2018-11-04 18:00 | disposition home or self-care (01) | DRG 854 ==
LOC: E/R 08:51 → 2NE 13:01
PROVIDERS: ADMIT Internal Medicine; ATTEND Internal Medicine
PROC: 0K960ZZ Drainage of Left Shoulder Muscle, Open Approach (ICD-10-PCS; principal; 2018-10-20 16:00)
PROC: 02HV33Z Insertion of Infusion Device into Superior Vena Cava, Percutaneous Approach (ICD-10-PCS; 2018-10-23)
DX: A41.9 Sepsis, unspecified organism (principal); F11.20 Opioid dependence, uncomplicated; M60.012 Infective myositis, left shoulder; D63.8 Anemia in other chronic diseases classified elsewhere; B95.62 Methicillin resistant Staphylococcus aureus infection as the cause of diseases classified elsewhere; B95.4 Other streptococcus as the cause of diseases classified elsewhere
CPT/HCPCS: 36415; 36569; 71045; 73200; 76937; 80048; 80053; 80202; 81001; 82565; 83036; 83605; 83735; 84100; 84145; 84484; 84520; 85025; 85610; 85651; 85730; 86140; 86703; 86704; 86709; 86803; 87070; 87075; 87086; 87102; 87116; 87206; 87340; 93005; 93306; 96374; C1769; J1170; J1200; J2250; J2270; J2405; J2543; J2765; J2795; J2997; J3010; J3370; J7030; J7050; J7120; Q9967